=== PATIENT | male | born 1935 | race Caucasian/White ===

== ENCOUNTER 2016-08-05 12:51 | Emergency (ER) | payer MEDICARE, OTHER ==
--- NOTE | 2016-08-05 13:01 | ER Document Report ---
ED Medical Screen (RME) - General Stated Complaint: ABNORMAL LABS Notes: Patient is a 80-year-old male presents emergency department after referral from [facility] low blood pressure, abdominal pain, elevated blood glucose and low pulse ox. With concern for GI bleed. Has had abdominal pain for 6 months ago worse over the past 2 weeks. She has been able to tolerate by mouth without any difficulty. Denies emesis, diarrhea, constipation, dark tarry stools, bright red blood per rectum. Patient is hypotensive 133/67 and mildy tachycardic in the 110's in triage. Otherwise he is alert and oriented 4. Able to ambulate without any difficulty. I have greeted and performed a rapid initial assessment of this patient. A comprehensive ED assessment and evaluation of the patient, analysis of test results and completion of the medical decision making process will be conducted by additional ED providers. TRAVEL OUTSIDE OF THE [place] IN LAST 30 DAYS: No - Related Data Allergies/Adverse Reactions: Penicillins Allergy (Severe, Verified 03/06/15 20:01) rash Past Medical History - Past Medical History Cardiac Medical History: Reports: Hx Coronary Artery Disease, Hx Heart Attack - about 30 years ago Denies: Hx Hypertension Pulmonary Medical History: Reports: Hx Asthma, Hx Pneumonia Denies: Hx Bronchitis, Hx COPD, Hx Tuberculosis Neurological Medical History: Denies: Hx Cerebrovascular Accident, Hx Seizures Endocrine Medical History: Reports: Hx Diabetes Mellitus Type 2 Renal/ Medical History: Reports: Hx Benign Prostatic Hyperplasia, Hx Kidney Stones GI Medical History: Reports: Hx Hiatal Hernia Musculoskeltal Medical History: Reports Hx Arthritis Past Surgical History: Reports: Hx Abdominal Surgery - hernia repair. Denies: Hx Pacemaker - Immunizations Hx Diphtheria, Pertussis, Tetanus Vaccination: No
[2016-08-05 13:38] LABS: ABSOLUTE EOSINOPHILS # (AUTO) 0.4 10^3/uL (0.0-0.6); ABSOLUTE LYMPHOCYTES (AUTO) 1.4 10^3/uL (0.5-4.7); ABSOLUTE MONOCYTES (AUTO) 0.7 10^3/uL (0.1-1.4); ABSOLUTE NEUT (AUTO) 10.3 10^3/uL (1.7-8.2); BASOPHILS % (AUTO) 0.3 % (0-2); EOSINOPHILS % (AUTO) 2.8 % (0-6); HEMOGLOBIN 13.2 g/dL (13.5-17.0); HGB HCT DIFFERENCE -0.4; LYMPHOCYTES % (AUTO) 10.8 % (13-45); MEAN CORPUSCULAR HEMOGLOBIN 28.9 pg (27.0-33.4); MEAN CORPUSCULAR HGB CONC 32.9 g/dL (32.0-36.0); MEAN CORPUSCULAR VOLUME 88 fl (80-97); MONOCYTES % (AUTO) 5.8 % (3-13); RED BLOOD COUNT 4.55 10^6/uL (4.35-5.55); RED CELL DISTRIBUTION WIDTH 15.9 % (11.5-14.0); SEGMENTED NEUTROPHILS % (AUTO) 80.3 % (42-78); WHITE BLOOD COUNT 12.8 10^3/uL (4.0-10.5)
[2016-08-05 13:39] LABS: PROTHROMBIN TIME 12.8 SEC (11.4-15.4)
[2016-08-05 13:51] LABS: ALANINE AMINOTRANSFERASE 32 U/L (21-72); ALBUMIN 3.8 g/dL (3.5-5.0); ALKALINE PHOSPHATASE 93 U/L (38-126); ANION GAP 14 (5-19); ASPARTATE AMINO TRANSFERASE 20 U/L (17-59); BILIRUBIN,TOTAL 0.4 mg/dL (0.2-1.3); BLOOD UREA NITROGEN 20 mg/dL (7-20); CALCIUM 9.7 mg/dL (8.4-10.2); CARBON DIOXIDE 24 mmol/L (22-30); CHLORIDE 97 mmol/L (98-107); CREATININE RESULT 1.41 mg/dL (0.52-1.25); GLUCOSE 311 mg/dL (75-110); POTASSIUM 5.5 mmol/L (3.6-5.0); SODIUM 134.5 mmol/L (137-145); TOTAL PROTEIN 8.2 g/dL (6.3-8.2)
[2016-08-05 18:03] LABS: APPEARANCE,URINE CLEAR; BILIRUBIN,URINE NEGATIVE (NEGATIVE); GLUCOSE, URINE 150 mg/dL (NEGATIVE); KETONES,URINE NEGATIVE (NEGATIVE); LEUKOCYTE ESTERASE,URINE NEGATIVE (NEGATIVE); NITRITE,URINE NEGATIVE (NEGATIVE); PROTEIN,URINE NEGATIVE (NEGATIVE); URINE SPECIFIC GRAVITY 1.011; UROBILINOGEN,URINE NEGATIVE mg/dL (<2.0)
[2016-08-05] MEDS ORDERED: NORMAL SALINE 1000 ML 1,000 ML IV PRN (18:38)
[2016-08-05] MEDS ORDERED: MORPHINE SULFATE 10 MG/ML INJ IV ONE (18:38)
--- NOTE | 2016-08-05 18:40 | ER Document Report ---
ED GI/ - General Chief Complaint: Abdominal Pain Stated Complaint: ABNORMAL LABS Time seen by provider: 18:39 Mode of Arrival: Ambulatory Information source: Patient TRAVEL OUTSIDE OF THE [place] IN LAST 30 DAYS: No - HPI Patient complains to provider of: Abdominal pain Onset: Other - 1 year Timing/Duration: Persistent, Waxing and waning Quality of pain: Achy, Cramping Severity at maximum: Moderate Severity in ED: Moderate Pain Level: 3 Location: LLQ Associated symptoms: None Exacerbated by: Denies Relieved by: Denies Similar symptoms previously: Yes Recently seen / treated by doctor: Yes Notes: 08/05/16 18:39 Patient is a 80-year-old female who was sent to the emergency room by his primary care provider for evaluation of left lower quadrant abdominal pain that' s been going on for the past year, he denies any fevers, no vomiting or diarrhea , no dysuria or hematuria, states he takes medication to help him have bowel movements and has not noticed any blood in them recently, apparently while at his primary care provider's office he was noted to have a low blood pressure as low as 85/54 - Related Data Allergies/Adverse Reactions: Penicillins Allergy (Severe, Verified 03/06/15 20:01) rash Past Medical History - General Information source: Patient - Social History Smoking Status: Unknown if Ever Smoked Family History: Reviewed & Not Pertinent - Past Medical History Cardiac Medical History: Reports: Hx Coronary Artery Disease, Hx Heart Attack - about 30 years ago Denies: Hx Hypertension Pulmonary Medical History: Reports: Hx Asthma, Hx Pneumonia Denies: Hx Bronchitis, Hx COPD, Hx Tuberculosis Neurological Medical History: Denies: Hx Cerebrovascular Accident, Hx Seizures Endocrine Medical History: Reports: Hx Diabetes Mellitus Type 2 Renal/ Medical History: Reports: Hx Benign Prostatic Hyperplasia, Hx Kidney Stones GI Medical History: Reports: Hx Hiatal Hernia Musculoskeltal Medical History: Reports Hx Arthritis Past Surgical History: Reports: Hx Abdominal Surgery - hernia repair. Denies: Hx Pacemaker - Immunizations Hx Diphtheria, Pertussis, Tetanus Vaccination: No Review of Systems - Review of Systems Constitutional: No symptoms reported EENT: No symptoms reported Cardiovascular: No symptoms reported Respiratory: No symptoms reported Gastrointestinal: See HPI Genitourinary: No symptoms reported Male Genitourinary: No symptoms reported Musculoskeletal: No symptoms reported Skin: No symptoms reported Hematologic/Lymphatic: No symptoms reported Neurological/Psychological: No symptoms reported -: Yes All other systems reviewed and negative Physical Exam - Vital signs Vitals: Temp Pulse Resp BP Pulse Ox 97.8 F 120 H 15 133/67 H 95 08/05/16 12:57 08/05/16 12:57 08/05/16 12:57 08/05/16 12:57 08/05/16 12:57 Interpretation: Normal - General General appearance: Appears well, Alert - HEENT Head: Normocephalic, Atraumatic Eyes: Normal Pupils: PERRL - Respiratory Respiratory status: No respiratory distress Chest status: Nontender Breath sounds: Normal Chest palpation: Normal - Cardiovascular Rhythm: Regular Heart sounds: Normal auscultation Murmur: No - Abdominal Inspection: Normal Distension: No distension Bowel sounds: Normal Tenderness: Tender - Left lower quadrant Organomegaly: No organomegaly - Back Back: Normal, Nontender - Extremities General upper extremity: Normal inspection, Nontender, Normal color, Normal ROM , Normal temperature General lower extremity: Normal inspection, Nontender, Normal color, Normal ROM , Normal temperature, Normal weight bearing. No: Kori's sign - Neurological Neuro grossly intact: Yes Cognition: Normal Orientation: AAOx4 [place] Coma Scale Eye Opening: Spontaneous [place] Coma Scale Verbal: Oriented [place] Coma Scale Motor: Obeys Commands [place] Coma Scale Total: 15 Speech: Normal Motor strength normal: LUE, RUE, LLE, RLE Sensory: Normal - Psychological Associated symptoms: Normal affect, Normal mood - Skin Skin Temperature: Warm Skin Moisture: Dry Skin Color: Normal Course - Re-evaluation Re-evalutation: 08/05/16 22:32 Lab and imaging findings discussed with patient and spouse at bedside, which are consistent with a likely constipation, patient will be started on Maalox and Colace, provided with information for follow-up with gastroenterology and advised to return if symptoms worsen, patient acknowledges understanding and agreement with this plan - Vital Signs Vital signs: Temp Pulse Resp BP Pulse Ox 98.6 F 120 H 11 L 123/64 92 08/05/16 17:52 08/05/16 12:57 08/05/16 22:11 08/05/16 22:11 08/05/16 22:11 - Laboratory Result Diagrams: 08/05/16 13:05 08/05/16 13:05 Laboratory results interpreted by me: 02/08/05/16 08/05/16 13:05 13:05 13:10 WBC 12.8 H Hgb 13.2 L RDW 15.9 H Seg Neutrophils % 80.3 H Lymphocytes % 10.8 L Absolute Neutrophils 10.3 H Sodium 134.5 L Potassium 5.5 H Chloride 97 L Creatinine 1.41 H Est GFR ( Amer) 59 L Est GFR (Non-Af Amer) 49 L Glucose 311 H POC Glucose 283 H Urine Glucose (UA) Urine Blood 08/05/16 17:36 WBC Hgb RDW Seg Neutrophils % Lymphocytes % Absolute Neutrophils Sodium Potassium Chloride Creatinine Est GFR ( Amer) Est GFR (Non-Af Amer) Glucose POC Glucose Urine Glucose (UA) 150 H Urine Blood SMALL H - Diagnostic Test Radiology reviewed: Image reviewed, Reports reviewed - EKG Interpretation by Me EKG shows normal: Sinus rhythm Rate: Normal Rhythm: NSR Discharge - Discharge Clinical Impression: Abdominal pain Qualifiers: Abdominal location: left lower quadrant Qualified Code(s): R10.32 - Left lower quadrant pain Constipation Qualifiers: Constipation type: unspecified constipation type Qualified Code(s): K59.00 - Constipation, unspecified Condition: Stable Disposition: HOME, SELF-CARE Instructions: Abdominal Pain ([facility]), Gastroenterology Additional Instructions: Follow up with your primary care provider in one to 2 days. Return to the emergency room immediately if symptoms worsen or any additional concerns. Prescriptions: Docusate Sodium [Colace 100 mg Capsule] 100 mg PO BID #60 capsule Polyethylene Glycol 3350 [Miralax Powder 17 Gm/Packet] 17 gm PO DAILY #30 powd.pack
[2016-08-05 23:03] VITALS: BP 134/72
--- NOTE | 2016-08-06 12:37 | EKG REPORT ---
SEVERITY:- BORDERLINE ECG - SINUS RHYTHM BORDERLINE LEFT AXIS DEVIATION BORDERLINE T WAVE ABNORMALITIES : Confirmed by: Carley Infante 06-Aug-2016 12:35:56
== END 2016-08-05 23:02 | disposition home or self-care (01) ==
LOC: ER 12:51
DX: K59.00 Constipation, unspecified (principal); R10.32 Left lower quadrant pain; I25.10 Atherosclerotic heart disease of native coronary artery without angina pectoris; I25.2 Old myocardial infarction; J45.909 Unspecified asthma, uncomplicated; E11.9 Type 2 diabetes mellitus without complications; Z88.0 Allergy status to penicillin; Z79.899 Other long term (current) drug therapy
CPT/HCPCS: 93005; 99284; 96360; 36415; 82962; 83690; 85025; 85610; 80053; 81001; 74022; 74177; 93010; J7030

== ENCOUNTER 2017-02-09 12:54 | Inpatient (IN) | payer MEDICARE, OTHER ==
--- NOTE | 2017-02-09 13:10 | ER Document Report ---
ED General - General Stated Complaint: ALTERED MENTAL STATUS Time Seen by Provider: 02/09/17 13:07 Notes: Patient was reported to have had a fall this morning about 11 AM. says that he normally sleeps on that couch and got up and fell. Then he lost control of his bladder and wet his clothing and also vomited. He did not have a bowel movement. says he has fallen about 8 or 9 times over the last couple of months. He was last noted to be well about 2300 last night. EMS was called and when they arrived, they found the patient to be poorly responsive and not able to follow commands. They also found an axillary temperature of 102 . PMH: GERD, hypothyroid, depression, prostate condition, IDDM,. TRAVEL OUTSIDE OF THE [place] IN LAST 30 DAYS: No - Related Data Allergies/Adverse Reactions: Penicillins Allergy (Severe, Verified 03/06/15 20:01) rash Past Medical History - Social History Smoking Status: Unknown if Ever Smoked Family History: Reviewed & Not Pertinent - Past Medical History Cardiac Medical History: Reports: Hx Coronary Artery Disease, Hx Heart Attack - about 30 years ago, Hx Hypertension Pulmonary Medical History: Reports: Hx Asthma, Hx Pneumonia Endocrine Medical History: Reports: Hx Diabetes Mellitus Type 2, Hx Hypothyroidism Renal/ Medical History: Reports: Hx Benign Prostatic Hyperplasia, Hx Kidney Stones GI Medical History: Reports: Hx Gastroesophageal Reflux Disease, Hx Hiatal Hernia Musculoskeltal Medical History: Reports Hx Arthritis Psychiatric Medical History: Reports: Hx Depression Past Surgical History: Reports: Hx Abdominal Surgery - hernia repair - Immunizations Hx Diphtheria, Pertussis, Tetanus Vaccination: No Review of Systems - Review of Systems -: Yes ROS unobtainable due to patient's medical condition - Patient is unable to answer questions appropriately. Does not follow comma Physical Exam - Vital signs Vitals: Resp Pulse Ox 32 H 92 02/09/17 13:04 02/09/17 13:04 Interpretation: Tachycardic, Febrile - Per EMS - Notes Notes: PHYSICAL EXAMINATION: GENERAL: Well-appearing, in no acute distress. However, not properly responsive and does not answer questions and does not follow commands. HEAD: Atraumatic, normocephalic. EYES: Pupils equal round and reactive to light, extraocular movements intact. ENT: oropharynx clear without exudates. Moist mucous membranes. NECK: Normal range of motion, supple. No nuchal rigidity. LUNGS: Breath sounds equal bilaterally. Few scattered rales bilaterally in the upper half of the lungs. No wheezes heard. HEART: Regular rate and rhythm without murmurs. ABDOMEN: Soft, nontender. No guarding or rebound. BACK: No tenderness throughout entire back. EXTREMITIES: Normal range of motion without pain. NEUROLOGICAL: Unable to assess properly because of patient's lack of cooperation. He opens his eyes, but does not follow commands to move extremities or answer questions appropriately. Moves all 4 extremities. SKIN: Warm, dry, no rashes. Course - Vital Signs Vital signs: Temp Pulse Resp BP Pulse Ox 99.8 F 103 H 31 H 134/59 H 97 02/09/17 13:45 02/09/17 15:00 02/09/17 18:00 02/09/17 16:01 02/09/17 18:00 - Laboratory Result Diagrams: 02/09/17 14:39 02/09/17 14:39 Laboratory results interpreted by me: 02/09/17 02/09/17 02/09/17 13:45 14:39 14:39 WBC 22.9 H RBC 4.13 L Hgb 12.5 L Hct 36.6 L RDW 15.0 H Seg Neuts % (Manual) 92 H Band Neutrophils % 2 L Lymphocytes % (Manual) 3 L Abs Neuts (Manual) 21.5 H VBG pH Sodium 136.1 L BUN 22 H Glucose 204 H POC Glucose Lactic Acid AST 14 L Urine Protein 30 H Urine Glucose (UA) 150 H Urine Blood MODERATE H 02/09/17 02/09/17 02/09/17 14:39 15:28 17:15 WBC RBC Hgb Hct RDW Seg Neuts % (Manual) Band Neutrophils % Lymphocytes % (Manual) Abs Neuts (Manual) VBG pH 7.44 H Sodium BUN Glucose POC Glucose 201 H Lactic Acid 3.0 H AST Urine Protein Urine Glucose (UA) Urine Blood - Diagnostic Test Radiology reviewed: Image reviewed, Reports reviewed - CT of the head is normal. CT abdomen and pelvis show no acute abnormalities. Radiology results interpreted by me: 02/09/17 18:42 Chest x-ray shows patchy upper lung opacifications that could be early pneumonias. - EKG Interpretation by [place] EKG shows normal: Sinus rhythm Rate: Tachycardia Har[place]/QRS: Left axis deviation Discharge - Discharge Clinical Impression: Pneumonia, Sepsis Disposition: ADMITTED INPATIENT Admitting Provider: Hospitalist Unit Admitted: [facility]
[2017-02-09] MEDS ORDERED: ACETAMINOPHEN SOLN 325 MG/10.15 ML UDCUP PO ONE (13:12)
--- NOTE | 2017-02-09 13:54 | RADIOLOGY REPORT (SQ) ---
EXAM DESCRIPTION: CHEST SINGLE VIEW COMPLETED DATE/TIME: 02/09/2017 1:31 pm REASON FOR STUDY: bed 9 sepsis alert COMPARISON: Chest films 08/05/2016, 03/17/2016, 03/06/2015 EXAM PARAMETERS: NUMBER OF VIEWS: One view. TECHNIQUE: Single frontal radiographic view of the chest acquired. RADIATION DOSE: NA LIMITATIONS: None. FINDINGS: LUNGS AND PLEURA: Question early or developing bilateral upper lobe airspace disease marke d with [place]. No pleural effusion. No pneumothorax. Minimal left lateral costophrenic sulcus atelectasis. MEDIASTINUM AND HILAR STRUCTURES: No masses. Contour normal. HEART AND VASCULAR STRUCTURES: Heart normal in size. Normal vasculature. BONES: No acute findings. HARDWARE: None in the chest. OTHER: No other significant finding. IMPRESSION: Minimal airspace disease in the right and left upper lobe, question early or developing pneumonia. TECHNICAL DOCUMENTATION: JOB ID: [id number]
[2017-02-09 14:41] LABS: APPEARANCE,URINE CLEAR; BILIRUBIN,URINE NEGATIVE (NEGATIVE); GLUCOSE, URINE 150 mg/dL (NEGATIVE); KETONES,URINE NEGATIVE (NEGATIVE); LEUKOCYTE ESTERASE,URINE NEGATIVE (NEGATIVE); NITRITE,URINE NEGATIVE (NEGATIVE); PROTEIN,URINE 30 mg/dL (NEGATIVE); URINE SPECIFIC GRAVITY 1.015; UROBILINOGEN,URINE NEGATIVE mg/dL (<2.0)
[2017-02-09 15:03] LABS: HEMATOCRIT 36.6 % (37.9-51.0); HEMOGLOBIN 12.5 g/dL (13.5-17.0); HGB HCT DIFFERENCE 0.9; MEAN CORPUSCULAR HEMOGLOBIN 30.2 pg (27.0-33.4); MEAN CORPUSCULAR HGB CONC 34.1 g/dL (32.0-36.0); MEAN CORPUSCULAR VOLUME 89 fl (80-97); RED BLOOD COUNT 4.13 10^6/uL (4.35-5.55); WHITE BLOOD COUNT 22.9 10^3/uL (4.0-10.5)
[2017-02-09 15:11] LABS: PROTHROMBIN TIME 13.5 SEC (11.4-15.4)
[2017-02-09 15:21] LABS: ANISOCYTOSIS SLIGHT; BAND NEUTROPHILS % (MANUAL) 2 % (3-5); BASOPHILS % (MANUAL) 0 % (0-2); EOSINOPHILS % (MANUAL) 0 % (0-6); LYMPHOCYTES % (MANUAL) 3 % (13-45); PLATELET CLUMPS PRESENT; POLYCHROMASIA SLIGHT; TOTAL CELLS COUNTED 100; TOXIC GRANULATION 1+; TOXIC VACUOLATION PRESENT
[2017-02-09 15:24] LABS: ALANINE AMINOTRANSFERASE 25 U/L (21-72); ALBUMIN 3.7 g/dL (3.5-5.0); ALKALINE PHOSPHATASE 69 U/L (38-126); ANION GAP 13 (5-19); ASPARTATE AMINO TRANSFERASE 14 U/L (17-59); BILIRUBIN,DIRECT 0.4 mg/dL (0.0-0.4); BILIRUBIN,TOTAL 0.6 mg/dL (0.2-1.3); BLOOD UREA NITROGEN 22 mg/dL (7-20); CALCIUM 9.3 mg/dL (8.4-10.2); CARBON DIOXIDE 23 mmol/L (22-30); CHLORIDE 100 mmol/L (98-107); CREATININE RESULT 0.99 mg/dL (0.52-1.25); GLUCOSE 204 mg/dL (75-110); POTASSIUM 4.1 mmol/L (3.6-5.0); SODIUM 136.1 mmol/L (137-145); TOTAL PROTEIN 7.5 g/dL (6.3-8.2)
[2017-02-09] MEDS ORDERED: CEFTRIAXONE 1 GM/D5W RTU 1 GM/50 ML RTUPB IV ONE (16:17)
[2017-02-09] MEDS ORDERED: LEVOFLOXACIN 750 MG/D5W RTU 750 MG/150 ML RTUPB IV ONE (16:59)
[2017-02-09 17:23] LABS: VENOUS BLOOD BASE EXCESS 4.6 mmol/L; VENOUS BLOOD HCO3 29.5 mmol/L (20-32); VENOUS BLOOD PCO2 44.6 mmHg (35-63); VENOUS BLOOD PH 7.44 (7.30-7.42)
--- NOTE | 2017-02-09 17:27 | RADIOLOGY REPORT (SQ) ---
EXAM DESCRIPTION: CT HEAD WITHOUT COMPLETED DATE/TIME: 02/09/2017 4:59 pm REASON FOR STUDY: Multiple falling episodes COMPARISON: None. TECHNIQUE: Axial images acquired through the brain without intravenous contrast. Images reviewed wi th bone, brain and subdural windows. Images stored on PACS. All CT scanners at this facility use dose modulation, iterative reconstruction, and/or weight based d osing when appropriate to reduce radiation dose to as low as reasonably achievable (ALARA). [facility]: Dose Right [facility]: CareDose [facility]: Dose Right [facility]: Teradose 4D [facility]: [employer] RADIATION DOSE: Up-to-date CT equipment and radiation dose reduction techniques were employed. CTDIv ol: 64.6 - 67.0 mGy. DLP: 2216 mGy-cm. mGy. LIMITATIONS: Motion artifact, patient scanned twice FINDINGS: Motion artifact throughout the study. On images without motion artifact, no gross acute intracranial hemorrhage, mass effect, or midline sh ift. No gross CT evidence of large territory acute ischemic change. Paranasal sinuses clear. No skull fracture IMPRESSION: Limited negative study TECHNICAL DOCUMENTATION: JOB ID: [id number] Quality ID # [id number]: Final reports with documentation of one or more dose reduction techniques (e.g., Au tomated exposure control, adjustment of the mA and/or kV according to patient size, use of iterative reconstruction technique) 2010 [employer]- All Rights Reserved
--- NOTE | 2017-02-09 17:34 | RADIOLOGY REPORT (SQ) ---
EXAM DESCRIPTION: CT ABD/PELVIS NO ORAL OR IV COMPLETED DATE/TIME: 02/09/2017 5:04 pm REASON FOR STUDY: Fever, vomiting, abdominal pain COMPARISON: CT abdomen and pelvis 08/05/2016, 03/06/2015, 05/04/2012 TECHNIQUE: CT scan of the abdomen and pelvis performed without intravenous or oral contrast. Images reviewed with lung, soft tissue, and bone windows. Reconstructed coronal and sagittal MPR images revi ewed. All images stored on PACS. All CT scanners at this facility use dose modulation, iterative reconstruction, and/or weight based d osing when appropriate to reduce radiation dose to as low as reasonably achievable (ALARA). [facility]: Dose Right [facility]: CareDose [facility]: Dose Right [facility]: Teradose 4D [facility]: [employer] RADIATION DOSE: Up-to-date CT equipment and radiation dose reduction techniques were employed. CTDIv ol: 7.8 mGy. DLP: 455 mGy-cm.mGy. LIMITATIONS: No IV or oral contrast FINDINGS: LOWER CHEST: Patchy airspace disease at the right lung base, question early or developing pneumonia. Moderate size retrocardiac hiatal hernia. Aspiration should be considered. NON-CONTRASTED LIVER, SPLEEN, ADRENALS: Evaluation limited by lack of IV contrast. No identified sign ificant masses. PANCREAS: No masses. No peripancreatic inflammatory changes. GALLBLADDER: No identified stones by CT criteria. No inflammatory changes to suggest cholecystitis. RIGHT KIDNEY AND URETER: No suspicious masses. Assessment limited by lack of IV contrast. No signif icant calcifications. No hydronephrosis or hydroureter. LEFT KIDNEY AND URETER: No suspicious masses. Assessment limited by lack of IV contrast. No signifi cant calcifications. No hydronephrosis or hydroureter. AORTA AND RETROPERITONEUM: No aneurysm. No retroperitoneal masses or adenopathy. Heavily calcified a bdominal aorta BOWEL AND PERITONEAL CAVITY: No obvious masses or inflammatory changes. No free fluid. There is dive rticulosis of the descending and sigmoid colon without CT signs of acute diverticulitis APPENDIX: Normal. PELVIS, BLADDER, AND ABDOMINAL WALL:No abnormal masses. No free fluid. Bladder decompressed by a Fole y catheter BONES: No significant findings. OTHER: No other significant finding. IMPRESSION: Early or developing right basilar infiltrate. Aspiration pneumonia is possible. Colonic diverticuli without CT signs of acute diverticulitis TECHNICAL DOCUMENTATION: JOB ID: [id number] Quality ID # [id number]: Final reports with documentation of one or more dose reduction techniques (e.g., Au tomated exposure control, adjustment of the mA and/or kV according to patient size, use of iterative reconstruction technique) 2010 [employer]- All Rights Reserved
[2017-02-09 17:44] LABS: CREATINE KINASE MB 0.71 ng/mL (<4.55); TROPONIN I 0.024 ng/mL
[2017-02-09] MEDS ORDERED: LEVALBUTEROL HCL NEB 1.25 MG/3 ML AMPUL NEB PRN (18:06)
[2017-02-09] MEDS ORDERED: ACETAMINOPHEN 325 MG TABLET PO PRN (18:06)
[2017-02-09] MEDS ORDERED: GUAIFENESIN SYRP 200 MG/10 ML UDC PO PRN (18:06)
[2017-02-09] MEDS ORDERED: INSULIN LISPRO 100 UNIT/ML 3 ML VIAL SUBCUT PRN (18:13)
[2017-02-09] MEDS ORDERED: DEXTROSE 50%-WATER 25 GM/50 ML DISP.SYRIN IV PRN ×2 (18:13)
[2017-02-09] MEDS ORDERED: GLUCAGON,HUMAN RECOMB 1 MG INJ IM PRN (18:13)
[2017-02-09] MEDS ORDERED: DEXTROSE 40% GEL 15 GM TUBE PO PRN ×2 (18:13)
[2017-02-09] MEDS: NORMAL SALINE 1000 ML 1,000 ML IV PRN (18:48)
[2017-02-09] MEDS: IPRATROPIUM/ALBUTEROL 0.5-2.5 MG/3 ML AMPUL NEB SCH (19:40)
--- NOTE | 2017-02-09 19:57 | HISTORY AND PHYSICAL E ---
History and Physical NAME: COLE THIBODEAUX : 1935 AGE: 81Y ADMITTED: 02/09/2017 ROOM: ED09 LOCAL DOCTOR: EDY SMITH M.D. CHIEF COMPLAINT: Altered mental status. HISTORY OF PRESENT ILLNESS: The history is primarily obtained from his who is at bedside, as patient is obtunded and difficult to arouse. The patient has apparently been complaining of indigestion and normally sits on the couch. She reports that this morning he was breathing hard and laying on his side when she went to get him up, she was unable to arouse him this morning. When she came back in the room, he was lying on the ground and he had vomited and lost control of his bladder at that time. He had been complaining previously of some shortness of breath without chest pain and felt like he had pneumonia according to her. He was taking his PPI and she had bought him a bottle of Mylanta as well. The patient does remain chronically constipated and has a history of diabetic gastroparesis. In the emergency department, the patient was found to have a white count of 22,000, to be hypoxic and have a lactate of 3. The patient was found to be overtly septic with multifocal pneumonia. He was referred to the hospitalist service for admission. PAST MEDICAL HISTORY: 1. Diabetes mellitus. 2. Osteoarthritis. 3. BPH. 4. Hypertension. 5. Hyperlipidemia. 6. Chronic opiate dependency. 7. Hypothyroidism. 8. GERD. PAST SURGICAL HISTORY: Rona fundoplication. HOME MEDICATIONS: 1. Avodart. 2. Glimepiride. 3. Gabapentin. 4. Metformin. 5. Cymbalta. 6. Synthroid. 7. Prilosec. 8. Flomax. 9. Opana. 10. Oxycodone. ALLERGIES: PENICILLIN WITH AN UNCLEAR RESPONSE. SOCIAL HISTORY: He is . He does not drink alcohol. He does not smoke but he does chew tobacco and he does not use illicit drugs. CODE STATUS: DNR. His , Faith, is his surrogate decision maker. FAMILY HISTORY: He has 3 sisters with cancer and 1 brother with a myocardial infarction. REVIEW OF SYSTEMS: Unobtainable secondary to patient mentation. PHYSICAL EXAMINATION: VITAL SIGNS: Temperature is 99.8. Pulse of 109. Blood pressure of 115/65. Respiratory rate of 21. Saturation of 96% on 3 L nasal cannula. GENERAL: The patient is obtunded and disheveled. He is acutely ill-appearing. HEENT: He is atraumatic, normocephalic. Pupils are small. Patient is obtunded but does respond to stimuli. He has no icterus. His extraocular eye movements are unable to be assessed due to his cooperation. His pupils are minimally reactive and approximately 2 mm. His mucous membranes are dry. He has dried tobacco secretions around his mouth. NECK: His trachea is midline. There is no thyromegaly. RESPIRATORY: Reveals some rhonchi bilaterally but no overt wheezing. CARDIOVASCULAR: Regular rate and rhythm. He is tachycardic. Normal S1,S2 without appreciable rub or gallop. ABDOMEN: Protuberant but soft, nondistended. Tender to palpation in the right lower quadrant and left lower quadrant bilaterally without rebound, rigidity or guarding. He has very hypoactive to minimal bowel sounds and negative Saavedra sign. RECTAL: Deferred. GENITOURINARY: Scott catheter is in place draining clear yellow urine. EXTREMITIES: Reveal no cyanosis, clubbing or edema. MUSCULOSKELETAL: Reveals no joint swelling or deformity. VASCULATURE: Reveals normal peripheral pulses. NEUROLOGIC: Unable to be assessed due to obtundation. SKIN: Reveals no rashes, wounds or worrisome skin lesions. PSYCHIATRIC: Unable to assess his psychiatric condition due to his current mentation. LABORATORY VALUES: White count of 22.9, hemoglobin 12.5, hematocrit 36.6 and platelets of 321. Sodium 136, potassium 4.1, chloride 100, CO2 of 23, BUN of 22, creatinine 0.99, glucose of 204, lactate of 3, calcium 9.3, total bilirubin 0.6, direct 0.4, AST 14, ALT 25, alkaline phosphatase 69, total protein 7.5, albumin 3.7. His troponin is 0.024. Head CT: The patient had a CT of the head which revealed motion artifact although there was no gross acute intracranial hemorrhage, mass effect or midline shift, clear sinuses, no skull fracture--very limited study. CT of the abdomen and pelvis reveals patchy airspace disease in the right lung, questionable early developing pneumonia and a moderate-sized *------* hiatal hernia with concern for aspiration. The patient has diverticulosis without diverticulitis. IMPRESSION: This is a 81-year-old male with: 1. Sepsis secondary to aspiration pneumonia. 2. Multifocal pneumonia, likely bacterial, likely gram-negative. 3. Diabetes mellitus. 4. Diabetic gastroparesis. 5. BPH. 6. Chronic pain syndrome. 7. Chronic opiate dependency. 8. Dyslipidemia. 9. Tobacco abuse. 10. Chronic constipation. 11. Acute encephalopathy secondary to sepsis. 12. Hypothyroidism. PLAN: 1. For patient's sepsis, we will place the patient on Rocephin and Levaquin, oxygen and IV fluids, maintain a MAP greater than 65, and patient will be admitted to [facility] for monitoring. We will obtain a sputum culture once one is available to us. We will continue scheduled nebulized treatments. 2. For patient's diabetes mellitus, will place patient on q.6 h. Accu-Chek and sliding scale insulin and we will hold his oral medications at this time due to obtundation. 3. For his altered mental status, this is likely secondary to the use of narcotics in addition to his poor mental status. We will obtain an ABG and use BiPAP if indicated. 4. For his chronic opiate dependency, at this time we will hold all opiates and we will add these as patient's mental status improves. I did discuss this with his . 5. For patient's GERD/hiatal hernia, we will continue a PPI and discuss this with patient when he is more aroused. 6. For patient's DVT prophylaxis, he will be on Lovenox. 7. For his code status, he is a DNR and his is his surrogate decision-maker. Total time spent with the patient including physical examination, coordination of care and discussion with patient and family and ER physician was 55 minutes of time. DICTATING PHYSICIAN: SIXTO REDDY M.D. [id number] PHY#: [id number] ID: [id number] JOB#: [id number] ACCT: [id number] cc:SIXTO REDDY M.D. >
--- NOTE | 2017-02-09 21:46 | EKG REPORT ---
SEVERITY:- OTHERWISE NORMAL ECG - SINUS TACHYCARDIA LEFT AXIS DEVIATION : Confirmed by: Carley Infante 09-Feb-2017 21:46:25
[2017-02-09] MEDS: GUAIFENESIN 600 MG TABLET.SA PO SCH (23:58)
[2017-02-09] MEDS: HEPARIN SOD (PORCINE) 5,000 UNIT/ML 1 ML SYRINGE SUBCUT SCH (23:58)
[2017-02-10] MEDS: NORMAL SALINE 1000 ML 1,000 ML IV PRN ×2 (00:01→12:31)
[2017-02-10 04:50] LABS: HEMATOCRIT 36.8 % (37.9-51.0); HEMOGLOBIN 12.4 g/dL (13.5-17.0); HGB HCT DIFFERENCE 0.4; MEAN CORPUSCULAR HEMOGLOBIN 30.4 pg (27.0-33.4); MEAN CORPUSCULAR HGB CONC 33.8 g/dL (32.0-36.0); MEAN CORPUSCULAR VOLUME 90 fl (80-97); RED BLOOD COUNT 4.09 10^6/uL (4.35-5.55); RED CELL DISTRIBUTION WIDTH 14.8 % (11.5-14.0); WHITE BLOOD COUNT 20.7 10^3/uL (4.0-10.5)
[2017-02-10 04:55] LABS: ANION GAP 8 (5-19); BLOOD UREA NITROGEN 19 mg/dL (7-20); CALCIUM 8.8 mg/dL (8.4-10.2); CARBON DIOXIDE 26 mmol/L (22-30); CHLORIDE 103 mmol/L (98-107); CREATININE RESULT 0.86 mg/dL (0.52-1.25); GLUCOSE 205 mg/dL (75-110); POTASSIUM 3.9 mmol/L (3.6-5.0); SODIUM 137.3 mmol/L (137-145)
[2017-02-10 05:10] LABS: BASOPHILS % (MANUAL) 0 % (0-2); EOSINOPHILS % (MANUAL) 0 % (0-6); LYMPHOCYTES % (MANUAL) 7 % (13-45); TOTAL CELLS COUNTED 100
[2017-02-10 05:11] LABS: ANISOCYTOSIS SLIGHT; TOXIC GRANULATION SLIGHT; TOXIC VACUOLATION PRESENT
[2017-02-10] MEDS: LANSOPRAZOLE 30 MG TAB.RAP.DR PO SCH (05:28)
[2017-02-10] MEDS: HEPARIN SOD (PORCINE) 5,000 UNIT/ML 1 ML SYRINGE SUBCUT SCH ×3 (05:29→23:13)
[2017-02-10] MEDS: IPRATROPIUM/ALBUTEROL 0.5-2.5 MG/3 ML AMPUL NEB SCH ×4 (08:12→20:10)
[2017-02-10] MEDS: GUAIFENESIN 600 MG TABLET.SA PO SCH ×2 (09:08→23:11)
[2017-02-10] MEDS ORDERED: ALBUTEROL SULFATE HFA (90 MCG/PUFF) 200 PUFF/8.5 GM MDI IH PRN (11:00)
[2017-02-10] MEDS ORDERED: SENNOSIDES/DOCUSATE 8.6-50 MG 1 EACH TABLET PO ONE (11:15)
[2017-02-10] MEDS: INSULIN LISPRO 100 UNIT/ML 3 ML VIAL SUBCUT SCH ×3 (12:22→23:28)
[2017-02-10] MEDS ORDERED: OPANA PO ONE (15:00)
[2017-02-10] MEDS ORDERED: CEFTRIAXONE 1 GM/D5W RTU 1 GM/50 ML RTUPB IV SCH (16:00)
[2017-02-10] MEDS ORDERED: (PENDING PHARMACY ID) (Metformin Hcl [Metformin Hcl Er] 500 MG) PO SCH (17:00)
[2017-02-10] MEDS ORDERED: OXYCODONE HCL IR 5 MG TABLET PO PRN (17:37)
[2017-02-10] MEDS: GLIMEPIRIDE 4 MG TABLET PO SCH (17:43)
[2017-02-10] MEDS: METFORMIN HCL 500 MG TABLET PO SCH (17:43)
[2017-02-10] MEDS: DOCUSATE SODIUM 100 MG CAPSULE PO SCH (17:43)
[2017-02-10] MEDS: LACTOBACILLUS ACIDOPHILUS 250 MG TAB PO SCH (17:44)
--- NOTE | 2017-02-10 17:49 | PDOC PROGRESS REPORT ---
Subjective Progress Note for:: 02/10/17 Subjective:: Patient is more awake today. He is complaining of his chronic pain. He reports he is feeling somewhat better. Patient is far from baseline. He often drifts off when we are talking. Patient admits to shortness of breath, abdominal pain, nausea, and constipation. Patient denies chest pain, vomiting, fevers, chills, diarrhea, headache, new onset weakness. Physical Exam Vital Signs: Temp Pulse Resp BP Pulse Ox 98.3 F 79 20 163/63 H 98 02/10/17 15:10 02/10/17 16:09 02/10/17 16:09 02/10/17 15:10 02/10/17 16:09 Pulse Oximeter Continuous Start: 02/09/17 18: 07 Freq: RTQ4 Status: Active Document 02/10/17 16:09 [facility] (Rec: 02/10/17 16:49 [facility] [email or web address]) Pulse Oximetry Assessment Oxygen Saturation (92-100) 98 Oxygen Delivery Method Room Air Fraction of Inspired Oxygen (FIO2) 21 Equipment Usage Equipment in Use Continuous SpO2 Machine # [id number] Intake & Output 02/09/17 02/10/17 02/11/17 06:59 06:59 06:59 Intake Total 946 0 Output Total 950 400 Balance -4 -400 Weight 78.1 kg Exam: General: Sleeping but easily arousable, mild respiratory distress HEENT: AT/NC, PERRL, EOMI, oropharynx is moist, pink, no scleral icterus, no conjunctival injection Neck: No JVD, trachea midline Chest: Bilateral scattered rhonchi right worse than left CV: Regular rate and rhythm, normal S1 and S2, no rub or gallop; +3/6 sm apex Abdomen: Soft, mildly tender to palpation, nondistended, hypoactive bowel sounds ; no rebound, rigidity, or guarding Extremities: No cyanosis, clubbing or edema Neuro: Cranial nerves II through XII are grossly intact without focal deficits Psych: Normal mood and affect, rhythmic mouth chewing movements Results Laboratory Results: 02/10/17 04:27 02/10/17 04:27 02/09/17 02/09/17 02/10/17 21:05 21:05 04:27 WBC 20.7 H RBC 4.09 L Hgb 12.4 L Hct 36.8 L MCV 90 MCH 30.4 MCHC 33.8 RDW 14.8 H Plt Count 259 Seg Neutrophils % Not Reportable Lymphocytes % Not Reportable Monocytes % Not Reportable Eosinophils % Not Reportable Basophils % Not Reportable Absolute Neutrophils Not Reportable Absolute Lymphocytes Not Reportable Absolute Monocytes Not Reportable Absolute Eosinophils Not Reportable Absolute Basophils Not Reportable Sodium Potassium Chloride Carbon Dioxide Anion Gap BUN Creatinine Est GFR ( Amer) Est GFR (Non-Af Amer) Glucose Lactic Acid 2.6 H Calcium TSH 1.32 02/10/17 04:27 WBC RBC Hgb Hct MCV MCH MCHC RDW Plt Count Seg Neutrophils % Lymphocytes % Monocytes % Eosinophils % Basophils % Absolute Neutrophils Absolute Lymphocytes Absolute Monocytes Absolute Eosinophils Absolute Basophils Sodium 137.3 Potassium 3.9 Chloride 103 Carbon Dioxide 26 Anion Gap 8 BUN 19 Creatinine 0.86 Est GFR ( Amer) > 60 Est GFR (Non-Af Amer) > 60 Glucose 205 H Lactic Acid Calcium 8.8 TSH Impressions: Chest X-Ray 02/09/17 12:59 IMPRESSION: Minimal airspace disease in the right and left upper lobe, question early or developing pneumonia. Abdomen/Pelvis CT 02/09/17 16:45 IMPRESSION: Early or developing right basilar infiltrate. Aspiration pneumonia is possible. Colonic diverticuli without CT signs of acute diverticulitis Head CT 02/09/17 16:46 IMPRESSION: Limited negative study Assessment & Plan - Diagnosis (1) Sepsis Qualifiers: Sepsis type: sepsis due to unspecified organism Qualified Code(s): A41.9 - Sepsis, unspecified organism Is this a current diagnosis for this admission?: Yes Plan: Concern for gram-negative sepsis in light of the fact that this appears to be aspiration pneumonia. 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 He was found minimally responsive by his . (2) Tardive dyskinesia Is this a current diagnosis for this admission?: Yes Plan: Consider initiation of trihexyphenidyl. Concern for worsening anticholinergic side effects though including constipation. (3) Constipation due to opioid therapy Is this a current diagnosis for this admission?: Yes Plan: Senna, Colace, MiraLAX. If this is unsuccessful use Dulcolax. reports use of chronic Dulcolax at home. (4) Pneumonia Qualifiers: Pneumonia type: aspiration pneumonia Aspiration pneumonia type: due to vomit Laterality: right Lung location: unspecified part of lung Qualified Code(s): J69.0 - Pneumonitis due to inhalation of food and vomit Is this a current diagnosis for this admission?: Yes Plan: Patient has a multilobar pneumonia consistent with aspiration pneumonia. Patient currently on Levaquin and Rocephin pending culture. Continue scheduled nebulized treatments. Aggressive pulmonary toileting (5) Chronic pain Qualifiers: Chronic pain type: chronic pain syndrome Qualified Code(s): G89.4 - Chronic pain syndrome Is this a current diagnosis for this admission?: Yes Plan: Continue patient's home Opana and restart a small amount of oxycodone. (6) Gastroparesis Is this a current diagnosis for this admission?: Yes Plan: Consider reinitation of reglan despite tardive dykinesia - Time Time Spent with patient: 25-34 minutes Medications reviewed and adjusted accordingly: Yes - Inpatient Certification Based on my medical assessment, after consideration of the patient's comorbidities, presenting symptoms, or acuity I expect that the services needed warrant INPATIENT care.: Yes I certify that my determination is in accordance with my understanding of Medicare's requirements for reasonable and necessary INPATIENT services [42 CFR 412.3e].: Yes Medical Necessity: Need for Nebulizer Therapy and Monitoring of Response, Need for IV Antibiotics Post Hospital Care: D/C Pattern Technician Documentation
[2017-02-10] MEDS ORDERED: LEVOFLOXACIN 750 MG/D5W RTU 750 MG/150 ML RTUPB IV SCH (18:00)
--- NOTE | 2017-02-10 19:30 | XCELERA REPORT ---
[address] [address] Transthoracic Echocardiogram Report Name: COLE THIBODEAUX Age: 81 yrs Gender: Male : 1935 Patient Status: Inpatient Patient Location: [address] [place] [address] Study Date: 02/10/2017 01:14 PM Height: 68 in Weight: 172 lb BSA: 1.9 m2 Procedure: A complete two-dimensional transthoracic echocardiogram was performed (2D, M-mode, spectral and color flow Doppler). The study was technically difficult with many images being suboptimal in quality. Reason For Study: new apical murmur Ordering Physician: SIXTO REDDY Performed By: Aureliano Mahmood Interpretation Summary The study was technically difficult with many images being suboptimal in quality. The left ventricular ejection fraction is preserved. There is mild concentric left ventricular hypertrophy. The left ventricle is grossly normal size. Doppler measurements suggest pseudonormalized left ventricular relaxation, which is associated with grade II/IV or mild to moderate diastolic dysfunction Regional wall motion abnormalities cannot be excluded due to limited visualization. Not all wall segments were well visualized. The right ventricle is mildly dilated. The right ventricular systolic function is normal. The right atrium is mildly dilated. The left atrium is mildly dilated. There is a mild amount of mitral regurgitation There is no mitral valve stenosis. There is a trace to mild amount of aortic regurgitation There is no aortic valve stenosis There is a mild amount of tricuspid regurgitation There is mild to moderate pulmonary hypertension by echo Right ventricular systolic pressure is estimated to be elevated at 40- 50mmHg. The aortic root is not well visualized but is probably normal size. The inferior vena cava was not well visualized There is no pericardial effusion. MMode/2D Measurements & Calculations RVDd: 3.9 cm LVIDd: 4.5 cm FS: 33.7 % Ao root diam: 2.8 cm IVSd: 1.3 cm LVIDs: 3.0 cm EDV(Teich): 90.1 ml LVPWd: 1.3 cm ESV(Teich): 33.6 ml Ao root area: 6.3 cm2 EF(Teich): 62.7 % LA dimension: 4.3 cm Doppler Measurements & Calculations MV E max eduardo: MV P1/2t max eduardo: Ao V2 max: LV V1 max P.1 cm/sec 81.7 cm/sec 190.0 cm/sec 4.8 mmHg MV A max eduardo: MV P1/2t: 62.7 msec Ao max PG: LV V1 max: 102.0 cm/sec 14.4 mmHg 109.2 cm/sec MV E/A: 0.78 MVA(P1/2t): 3.5 cm2 MV dec slope: 381.6 cm/sec2 PA V2 max: PI end-d eduardo: TR max eduardo: RAP systole: 108.0 cm/sec 123.5 cm/sec 282.7 cm/sec 10.0 mmHg PA max PG: TR max P.7 mmHg 32.1 mmHg RVSP(TR): 42.1 mmHg Left Ventricle The left ventricle is grossly normal size. There is mild concentric left ventricular hypertrophy. The left ventricular ejection fraction is preserved. Doppler measurements suggest pseudonormalized left ventricular relaxation, which is associated with grade II/IV or mild to moderate diastolic dysfunction. Regional wall motion abnormalities cannot be excluded due to limited visualization. Not all wall segments were well visualized. Right Ventricle The right ventricle is mildly dilated. The right ventricular systolic function is normal. Atria The right atrium is mildly dilated. The left atrium is mildly dilated. Interarterial septum not well visualized and not well dopplered. Cannot comment on ASD/PFO presence. Mitral Valve The mitral valve is grossly normal. There is no mitral valve stenosis. There is a mild amount of mitral regurgitation. Aortic Valve The aortic valve is mildly calcified. There is no aortic valve stenosis. There is a trace to mild amount of aortic regurgitation. Tricuspid Valve The tricuspid valve is not well visualized secondary to technical limitations. There is no tricuspid stenosis. There is a mild amount of tricuspid regurgitation. There is mild to moderate pulmonary hypertension by echo. Right ventricular systolic pressure is estimated to be elevated at 40-50mmHg. Pulmonic Valve The pulmonic valve is not well visualized. Great Vessels The aortic root is not well visualized but is probably normal size. The inferior vena cava was not well visualized. Effusions There is no pericardial effusion. : SIXTO REDDY > Carley Infante
[2017-02-10] MEDS ORDERED: TAMSULOSIN HCL 0.4 MG CAP.SR.24H PO SCH (22:00)
[2017-02-10] MEDS ORDERED: INSULIN GLARGINE,HUM.REC.ANLOG 300 UNIT/3 ML INSULN.PEN SUBCUT SCH (22:00)
[2017-02-10] MEDS ORDERED: SENNOSIDES/DOCUSATE 8.6-50 MG 1 EACH TABLET PO SCH (22:00)
[2017-02-10] MEDS: [UNRECOGNIZED DRUG - OTHER] PO SCH (23:26)
[2017-02-11] MEDS ORDERED: LEVOTHYROXINE SODIUM 0.075 MG TABLET PO SCH (06:00)
[2017-02-11] MEDS: NORMAL SALINE 1000 ML 1,000 ML IV PRN (06:25)
[2017-02-11] MEDS: HEPARIN SOD (PORCINE) 5,000 UNIT/ML 1 ML SYRINGE SUBCUT SCH (06:25)
[2017-02-11] MEDS: LANSOPRAZOLE 30 MG TAB.RAP.DR PO SCH (06:26)
[2017-02-11 06:58] LABS: ABSOLUTE LYMPHOCYTES (AUTO) 1.2 10^3/uL (0.5-4.7); ABSOLUTE MONOCYTES (AUTO) 0.7 10^3/uL (0.1-1.4); ABSOLUTE NEUT (AUTO) 11.7 10^3/uL (1.7-8.2); BASOPHILS % (AUTO) 0.3 % (0-2); EOSINOPHILS % (AUTO) 0.3 % (0-6); HEMATOCRIT 33.5 % (37.9-51.0); HEMOGLOBIN 11.5 g/dL (13.5-17.0); LYMPHOCYTES % (AUTO) 8.9 % (13-45); MEAN CORPUSCULAR HEMOGLOBIN 30.5 pg (27.0-33.4); MEAN CORPUSCULAR HGB CONC 34.4 g/dL (32.0-36.0); MEAN CORPUSCULAR VOLUME 89 fl (80-97); MONOCYTES % (AUTO) 4.8 % (3-13); RED BLOOD COUNT 3.77 10^6/uL (4.35-5.55); RED CELL DISTRIBUTION WIDTH 15.3 % (11.5-14.0); SEGMENTED NEUTROPHILS % (AUTO) 85.7 % (42-78); WHITE BLOOD COUNT 13.7 10^3/uL (4.0-10.5)
[2017-02-11 07:10] LABS: ANION GAP 8 (5-19); BLOOD UREA NITROGEN 15 mg/dL (7-20); CALCIUM 8.9 mg/dL (8.4-10.2); CARBON DIOXIDE 27 mmol/L (22-30); CHLORIDE 105 mmol/L (98-107); CREATININE RESULT 0.88 mg/dL (0.52-1.25); GLUCOSE 45 mg/dL (75-110); POTASSIUM 3.6 mmol/L (3.6-5.0); SODIUM 139.5 mmol/L (137-145)
[2017-02-11] MEDS ORDERED: POTASSIUM CHLORIDE 10 MEQ TABLET.SA PO ONE (07:34)
[2017-02-11] MEDS: IPRATROPIUM/ALBUTEROL 0.5-2.5 MG/3 ML AMPUL NEB SCH (07:46)
[2017-02-11] MEDS: GLIMEPIRIDE 4 MG TABLET PO SCH (08:57)
[2017-02-11] MEDS: METFORMIN HCL 500 MG TABLET PO SCH (08:57)
[2017-02-11] MEDS: [UNRECOGNIZED DRUG - OTHER] PO SCH (09:10)
[2017-02-11] MEDS: GUAIFENESIN 600 MG TABLET.SA PO SCH (09:11)
[2017-02-11] MEDS: DOCUSATE SODIUM 100 MG CAPSULE PO SCH (09:11)
[2017-02-11] MEDS: LACTOBACILLUS ACIDOPHILUS 250 MG TAB PO SCH (09:19)
[2017-02-11] MEDS: INSULIN LISPRO 100 UNIT/ML 3 ML VIAL SUBCUT SCH (09:21)
[2017-02-11] MEDS ORDERED: DUTASTERIDE 0.5 MG CAPSULE PO SCH (10:00)
[2017-02-11] MEDS ORDERED: POLYETHYLENE GLYCOL 3350 POWDER 17 GM/1 PACKET PO SCH (10:00)
[2017-02-11 11:50] VITALS: BP 159/67
--- NOTE | 2017-02-11 17:47 | PDOC DISCHARGE SUMMARY ---
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, managed as type 1 Is this a current diagnosis for this admission?: Yes (8) HTN (hypertension) Is this a current diagnosis for this admission?: Yes - Additional Information Resuscitation Status: Do Not Resuscitate Discharge Diet: Cardiac, Diabetic Discharge Activity: Activity As Tolerated, Slowly Increase Activity Home Medications: Albuterol Sulfate [Ventolin Hfa] 2 puff IH Q4HP PRN 02/09/17 Dutasteride [Avodart] 0.5 mg PO DAILY 02/09/17 Insulin Glargine,Hum.rec.anlog [Lantus Insulin 100 Unit/mL] 50 unit SUBCUT QHS 02/09/17 Levothyroxine Sodium [Synthroid] 75 mcg PO DAILY 02/09/17 Metformin HCl [Metformin HCl ER] 500 mg PO BIDBS 02/09/17 Omeprazole 40 mg PO DAILY 02/09/17 Oxycodone HCl 15 mg PO Q4HP PRN 02/09/17 Oxymorphone HCl [Oxymorphone HCl ER] 40 mg PO Q12 02/09/17 Tamsulosin HCl [Flomax 0.4 mg Cap.sr] 0.4 mg PO QHS 02/09/17 Docusate Sodium [Colace 100 mg Capsule] 100 mg PO BID #60 capsule 02/11/17 Glimepiride [Amaryl 4 mg Tablet] 4 mg PO BIDACBS tablet 02/11/17 Guaifenesin [Mucinex Sr 600 mg Tablet.sa] 600 mg PO Q12 #20 tablet.sa 02/11/17 Levofloxacin [Levaquin 750 mg Tablet] 750 mg PO DAILY #10 tab 02/11/17 Sennosides/Docusate 8.6-50 mg [Senna Plus Tablet] 2 each PO QHS #60 tablet 02/11 History of Present Illness History of Present Illness: Please see H&P for full HPI Hospital Course Hospital Course: Patient was admitted and started on Levaquin and Rocephin. He greatly improved over the next 48 hours. Patient's mental status was improved by the following day. His narcotics were slowly re-added. He had several bowel movements. When patient's insulin was added, he did have an episode of hypoglycemia in the morning which is likely due to his insulin being adjusted for his normal home eating habits. We did discuss the need for him to comply with his home medical and dietary therapy. Patient was also advised to stop chewing tobacco. He was advised to follow-up with his primary care physician regarding treatment for his tardive dyskinesia. The remainder of his course was unremarkable and he was discharged in stable condition. Physical Exam Vital Signs: Temp Pulse Resp BP Pulse Ox 98.7 F 80 20 159/67 H 92 02/11/17 11:00 02/11/17 11:00 02/11/17 11:00 02/11/17 11:00 02/11/17 11:00 Pulse Oximeter Continuous Start: 02/09/17 18: 07 Freq: RTQ4 Status: Discharge Document 02/11/17 07:46 LDA (Rec: 02/11/17 09:11 LDA [email or web address]) Pulse Oximetry Assessment Oxygen Saturation (92-100) 94 Oxygen Delivery Method Room Air Fraction of Inspired Oxygen (FIO2) 21 Equipment Usage Equipment in Use Continuous SpO2 Machine # 14 Intake & Output 02/10/17 02/11/17 02/12/17 06:59 06:59 06:59 Intake Total 946 2152 Output Total 950 640 Balance -4 1512 Weight 78.1 kg 80.6 kg Exam: General: A+x3, NAD HEENT: AT/NC, PERRL, EOMI, oropharynx is moist, pink, no scleral icterus, no conjunctival injection Neck: No JVD, trachea midline Chest: CTAB CV: Regular rate and rhythm, normal S1 and S2, no rub or gallop; +3/6 sm apex Abdomen: Soft, NTTP, nondistended, active bowel sounds; no rebound, rigidity, or guarding Extremities: No cyanosis, clubbing or edema Neuro: Cranial nerves II through XII are grossly intact without focal deficits Psych: Normal mood and affect, rhythmic mouth chewing movements Results Laboratory Results: 02/11/17 06:00 02/11/17 06:00 02/11/17 02/11/17 06:00 06:00 WBC 13.7 H RBC 3.77 L Hgb 11.5 L Hct 33.5 L MCV 89 MCH 30.5 MCHC 34.4 RDW 15.3 H Plt Count 291 Seg Neutrophils % 85.7 H Lymphocytes % 8.9 L Monocytes % 4.8 Eosinophils % 0.3 Basophils % 0.3 Absolute Neutrophils 11.7 H Absolute Lymphocytes 1.2 Absolute Monocytes 0.7 Absolute Eosinophils 0.0 Absolute Basophils 0.0 Sodium 139.5 Potassium 3.6 Chloride 105 Carbon Dioxide 27 Anion Gap 8 BUN 15 Creatinine 0.88 Est GFR ( Amer) > 60 Est GFR (Non-Af Amer) > 60 Glucose 45 L Calcium 8.9 Impressions: Chest X-Ray 02/09/17 12:59 IMPRESSION: Minimal airspace disease in the right and left upper lobe, question early or developing pneumonia. Abdomen/Pelvis CT 02/09/17 16:45 IMPRESSION: Early or developing right basilar infiltrate. Aspiration pneumonia is possible. Colonic diverticuli without CT signs of acute diverticulitis Head CT 02/09/17 16:46 IMPRESSION: Limited negative study Qualifiers PATEINT BEING DISCHARGED WITH ANY OF THE FOLLOWING DIAGNOSIS?: No Plan Time Spent: Less than 30 Minutes
[2017-02-11] MEDS ORDERED: INSULIN GLARGINE,HUM.REC.ANLOG 300 UNIT/3 ML INSULN.PEN SUBCUT SCH (22:00)
== END 2017-02-11 12:15 | disposition home or self-care (01) | DRG 871 ==
LOC: ER 12:54 → EH 18:06 → UNDOADMIN 18:32 → EH 18:32 → 3W 22:02
PROVIDERS: ADMIT Family Medicine; ATTEND Family Medicine
DX: A41.9 Sepsis, unspecified organism (principal); J69.0 Pneumonitis due to inhalation of food and vomit; G93.49 Other encephalopathy; F11.20 Opioid dependence, uncomplicated; R41.82 Altered mental status, unspecified; K21.9 Gastro-esophageal reflux disease without esophagitis; E03.9 Hypothyroidism, unspecified; F32.9 Major depressive disorder, single episode, unspecified; N40.0 Benign prostatic hyperplasia without lower urinary tract symptoms; E11.43 Type 2 diabetes mellitus with diabetic autonomic (poly)neuropathy; K31.84 Gastroparesis; K44.9 Diaphragmatic hernia without obstruction or gangrene; G24.01 Drug induced subacute dyskinesia; K59.03 Drug induced constipation; Z79.84 Long term (current) use of oral hypoglycemic drugs; Z88.0 Allergy status to penicillin; Z79.4 Long term (current) use of insulin; Z79.51 Long term (current) use of inhaled steroids; Z79.899 Other long term (current) drug therapy
CPT/HCPCS: 36415; 51702; 70450; 71010; 74176; 80048; 80053; 81001; 82553; 82803; 82962; 83605; 84443; 84484; 85025; 85610; 87040; 87086; 93005; 93010; 93306; 94640; 94667; 94762; 94799; 96365; 99285; J0696; J1644; J1815; J1956; J3490; J7030; J7620

== ENCOUNTER → 2017-03-10 | Outpatient (CLI) | payer MEDICARE, OTHER ==
[2017-03-10 13:19] LABS: HEMATOCRIT 39.4 % (37.9-51.0); HEMOGLOBIN 13.3 g/dL (13.5-17.0); HGB HCT DIFFERENCE 0.5; MEAN CORPUSCULAR HGB CONC 33.7 g/dL (32.0-36.0); MEAN CORPUSCULAR VOLUME 89 fl (80-97); RED BLOOD COUNT 4.43 10^6/uL (4.35-5.55); RED CELL DISTRIBUTION WIDTH 14.9 % (11.5-14.0); WHITE BLOOD COUNT 11.2 10^3/uL (4.0-10.5)
[2017-03-10 13:39] LABS: ALANINE AMINOTRANSFERASE 19 U/L (21-72); ALBUMIN 3.9 g/dL (3.5-5.0); ALKALINE PHOSPHATASE 79 U/L (38-126); ANION GAP 14 (5-19); ASPARTATE AMINO TRANSFERASE 16 U/L (17-59); BILIRUBIN,DIRECT 0.4 mg/dL (0.0-0.4); BILIRUBIN,TOTAL 0.6 mg/dL (0.2-1.3); BLOOD UREA NITROGEN 13 mg/dL (7-20); CALCIUM 9.7 mg/dL (8.4-10.2); CARBON DIOXIDE 24 mmol/L (22-30); CHLORIDE 100 mmol/L (98-107); CREATININE RESULT 1.13 mg/dL (0.52-1.25); GLUCOSE 226 mg/dL (75-110); POTASSIUM 4.7 mmol/L (3.6-5.0); SODIUM 138.3 mmol/L (137-145); TOTAL PROTEIN 7.8 g/dL (6.3-8.2)
== END ==
LOC: LAB 12:54
PROVIDERS: ATTEND Physician Assistant
DX: J18.9 Pneumonia, unspecified organism (principal); E11.9 Type 2 diabetes mellitus without complications
CPT/HCPCS: 36415; 80053; 85027

== ENCOUNTER 2017-03-17 11:19 | Emergency (ER) | payer MEDICARE, OTHER ==
--- NOTE | 2017-03-17 11:45 | ER Document Report ---
ED Medical Screen (RME) - General Chief Complaint: Fall Stated Complaint: WRIST PAIN Time Seen by Provider: 03/17/17 11:42 Notes: Patient presents stating that he fell against his fridge yesterday and hurt his left wrist. He states that the left wrist is the worst area of pain. It was also noticed at triage the patient is significantly tachycardic. Patient states he does not recall being told that his heart rate is high in the past. He states he is not sure why he gets dizzy and falls but he has been seen multiple times to be evaluated for this. TRAVEL OUTSIDE OF THE [place] IN LAST 30 DAYS: No - Related Data Allergies/Adverse Reactions: Penicillins Allergy (Severe, Verified 03/17/17 11:23) rash Past Medical History - Social History Chew tobacco use (# tins/day): No Frequency of alcohol use: None Drug Abuse: None - Past Medical History Cardiac Medical History: Reports: Hx Coronary Artery Disease, Hx Heart Attack - about 30 years ago, Hx Hypertension Pulmonary Medical History: Reports: Hx Asthma, Hx Pneumonia Denies: Hx Bronchitis, Hx COPD, Hx Tuberculosis Neurological Medical History: Denies: Hx Cerebrovascular Accident, Hx Seizures Endocrine Medical History: Reports: Hx Diabetes Mellitus Type 2, Hx Hypothyroidism Renal/ Medical History: Reports: Hx Benign Prostatic Hyperplasia, Hx Kidney Stones. Denies: Hx Peritoneal Dialysis GI Medical History: Reports: Hx Gastroesophageal Reflux Disease, Hx Hiatal Hernia Musculoskeltal Medical History: Reports Hx Arthritis Psychiatric Medical History: Reports: Hx Depression Past Surgical History: Reports: Hx Abdominal Surgery - hernia repair. Denies: Hx Pacemaker - Immunizations Hx Diphtheria, Pertussis, Tetanus Vaccination: No Physical Exam - Vital signs Vitals: Temp Pulse Resp BP Pulse Ox 98.8 F 122 H 20 113/55 L 95 03/17/17 11:23 03/17/17 11:23 03/17/17 11:23 03/17/17 11:23 03/17/17 11:23 Course - Vital Signs Vital signs: Temp Pulse Resp BP Pulse Ox 98.8 F 122 H 20 113/55 L 95 03/17/17 11:23 03/17/17 11:23 03/17/17 11:23 03/17/17 11:23 03/17/17 11:23
[2017-03-17 12:34] LABS: ABSOLUTE EOSINOPHILS # (AUTO) 0.4 10^3/uL (0.0-0.6); ABSOLUTE LYMPHOCYTES (AUTO) 1.4 10^3/uL (0.5-4.7); ABSOLUTE MONOCYTES (AUTO) 0.8 10^3/uL (0.1-1.4); ABSOLUTE NEUT (AUTO) 12.6 10^3/uL (1.7-8.2); BASOPHILS % (AUTO) 0.2 % (0-2); EOSINOPHILS % (AUTO) 2.3 % (0-6); HEMATOCRIT 40.1 % (37.9-51.0); HEMOGLOBIN 13.5 g/dL (13.5-17.0); HGB HCT DIFFERENCE 0.4; LYMPHOCYTES % (AUTO) 8.9 % (13-45); MEAN CORPUSCULAR HEMOGLOBIN 29.7 pg (27.0-33.4); MEAN CORPUSCULAR HGB CONC 33.7 g/dL (32.0-36.0); MEAN CORPUSCULAR VOLUME 88 fl (80-97); MONOCYTES % (AUTO) 5.2 % (3-13); RED BLOOD COUNT 4.55 10^6/uL (4.35-5.55); SEGMENTED NEUTROPHILS % (AUTO) 83.4 % (42-78); WHITE BLOOD COUNT 15.1 10^3/uL (4.0-10.5)
--- NOTE | 2017-03-17 12:39 | RADIOLOGY REPORT (SQ) ---
EXAM DESCRIPTION: WRIST LEFT 3 VIEWS COMPLETED DATE/TIME: 03/17/2017 12:32 pm REASON FOR STUDY: fall/pain COMPARISON: None. NUMBER OF VIEWS: Three views. TECHNIQUE: AP, lateral, and oblique radiographic images acquired of the left wrist. LIMITATIONS: None. FINDINGS: MINERALIZATION: Normal. BONES: No acute fracture or dislocation. No worrisome bone lesions. Normal alignment. SOFT TISSUES: No soft tissue swelling. No foreign body. OTHER: No other significant finding. IMPRESSION: NEGATIVE STUDY OF THE LEFT WRIST. NO RADIOGRAPHIC EVIDENCE OF ACUTE INJURY. TECHNICAL DOCUMENTATION: JOB ID: [id number] [employer]- All Rights Reserved
[2017-03-17] MEDS ORDERED: HYDROMORPHONE HCL INJ/PF 2 MG/ML AMPULE IM ONE (12:40)
[2017-03-17 12:59] LABS: ALANINE AMINOTRANSFERASE 21 U/L (21-72); ALKALINE PHOSPHATASE 106 U/L (38-126); ANION GAP 12 (5-19); ASPARTATE AMINO TRANSFERASE 17 U/L (17-59); BILIRUBIN,DIRECT 0.5 mg/dL (0.0-0.4); BILIRUBIN,TOTAL 0.5 mg/dL (0.2-1.3); BLOOD UREA NITROGEN 11 mg/dL (7-20); CALCIUM 9.8 mg/dL (8.4-10.2); CARBON DIOXIDE 26 mmol/L (22-30); CHLORIDE 96 mmol/L (98-107); GLUCOSE 225 mg/dL (75-110); POTASSIUM 4.9 mmol/L (3.6-5.0); SODIUM 134.3 mmol/L (137-145); TOTAL PROTEIN 8.2 g/dL (6.3-8.2)
[2017-03-17 13:14] VITALS: BP 145/70
--- NOTE | 2017-03-18 03:54 | EKG REPORT ---
SEVERITY:- OTHERWISE NORMAL ECG - SINUS TACHYCARDIA LEFT AXIS DEVIATION : Confirmed by: Sari Crocker MD 18-Mar-2017 03:54:42
--- NOTE | 2017-03-19 07:54 | ER Document Report ---
ED General - General Chief Complaint: Fall Stated Complaint: WRIST PAIN Time Seen by Provider: 03/17/17 11:42 Mode of Arrival: Ambulatory Information source: Patient Notes: 81-year-old male presents with complaints of a fall injuring his left wrist. Patient notes he falls often has formed total of 15 to times this year. Patient denies any chest pain shortness of breath prior to these falls. Patient states he is on quite a bit of pain medication at home he gets dizzy and then he will fall. Patient has been worked up for his falls multiple times in the past TRAVEL OUTSIDE OF THE [place] IN LAST 30 DAYS: No - HPI Onset: Just prior to arrival Onset/Duration: Sudden Quality of pain: Achy Severity: Moderate Pain Level: 2 Associated symptoms: Other Exacerbated by: Movement Relieved by: Denies Similar symptoms previously: Yes Recently seen / treated by doctor: Yes - Related Data Allergies/Adverse Reactions: Penicillins Allergy (Severe, Verified 03/17/17 11:23) rash Past Medical History - Social History Smoking Status: Former Smoker Cigarette use (# per day): No Chew tobacco use (# tins/day): No Smoking Education Provided: No Frequency of alcohol use: None Drug Abuse: None Family History: Reviewed & Not Pertinent - Past Medical History Cardiac Medical History: Reports: Hx Coronary Artery Disease, Hx Heart Attack - about 30 years ago, Hx Hypertension Pulmonary Medical History: Reports: Hx Asthma, Hx Pneumonia Denies: Hx Bronchitis, Hx COPD, Hx Tuberculosis Neurological Medical History: Denies: Hx Cerebrovascular Accident, Hx Seizures Endocrine Medical History: Reports: Hx Diabetes Mellitus Type 2, Hx Hypothyroidism Renal/ Medical History: Reports: Hx Benign Prostatic Hyperplasia, Hx Kidney Stones. Denies: Hx Peritoneal Dialysis GI Medical History: Reports: Hx Gastroesophageal Reflux Disease, Hx Hiatal Hernia Musculoskeltal Medical History: Reports Hx Arthritis Psychiatric Medical History: Reports: Hx Depression Past Surgical History: Reports: Hx Abdominal Surgery - hernia repair. Denies: Hx Pacemaker - Immunizations Hx Diphtheria, Pertussis, Tetanus Vaccination: No Review of Systems - Review of Systems Notes: REVIEW OF SYSTEMS: CONSTITUTIONAL : Denies fever, chills, or sweats. Denies recent illness. EENT: Denies eye, ear, throat, or mouth pain or symptoms. Denies nasal or sinus congestion or discharge. Denies throat, tongue, or mouth swelling or difficulty swallowing. CARDIOVASCULAR: Denies chest pain. Denies palpitations or racing or irregular heart beat. Denies ankle edema. RESPIRATORY: Denies cough, cold, or chest congestion. Denies shortness of breath, difficulty breathing, or wheezing. GASTROINTESTINAL: Denies abdominal pain or distention. Denies nausea, vomiting , or diarrhea. Denies blood in vomitus, stools, or per rectum. Denies black, tarry stools. Denies constipation. GENITOURINARY: Denies difficulty urinating, painful urination, burning, frequency, blood in urine, or discharge. MUSCULOSKELETAL: admits to left wrist pain SKIN: Denies rash, lesions or sores. HEMATOLOGIC : Denies easy bruising or bleeding. LYMPHATIC: Denies swollen, enlarged glands. NEUROLOGICAL: Denies confusion or altered mental status. Denies passing out or loss of consciousness. Denies dizziness or lightheadedness. Denies headache. Denies weakness or paralysis or loss of use of either side. Denies problems with gait or speech. Denies sensory loss, numbness, or tingling. Denies seizures. PSYCHIATRIC: Denies anxiety or stress. Denies depression, suicidal ideation, or homicidal ideation. ALL OTHER SYSTEMS REVIEWED AND NEGATIVE. Dictation was performed using [employer] voice recognition software PHYSICAL EXAMINATION: GENERAL: Well-appearing, well-nourished and in no acute distress. HEAD: Atraumatic, normocephalic. EYES: Pupils equal round and reactive to light, extraocular movements intact, sclera anicteric, conjunctiva are normal. ENT: Nares patent, oropharynx clear without exudates. Moist mucous membranes. NECK: Normal range of motion, supple without lymphadenopathy LUNGS: Breath sounds clear to auscultation bilaterally and equal. No wheezes rales or rhonchi. HEART: Regular rate and rhythm without murmurs ABDOMEN: Soft, nontender, nondistended abdomen. No guarding, no rebound. No masses appreciated. Musculoskeletal: limited rom of the left wrist secondary to pain, erythema is noted at the ulnar aspect of the wrist. NEUROLOGICAL: Cranial nerves grossly intact. Normal speech, normal gait. Normal sensory, motor exams PSYCH: Normal mood, normal affect. SKIN: Warm, Dry, normal turgor, no rashes or lesions noted. Physical Exam - Vital signs Vitals: Temp Pulse Resp BP Pulse Ox 98.8 F 122 H 20 113/55 L 95 03/17/17 11:23 03/17/17 11:23 03/17/17 11:23 03/17/17 11:23 03/17/17 11:23 Course - Re-evaluation Re-evalutation: 03/19/17 07:54 Patient is noted to be tachycardic, he was given pain control his heart rate improved significantly, workup was performed mild white count elevation was noted which is secondary to pain. Patient is also noted to be hyperglycemic he has been made aware of this. X-ray noted no acute abnormality patient feels better with the pain control given to him here cock-up splint was performed 03/19/17 07:54 After performing a Medical Screening Examination, I estimate there is LOW risk for INTRACRANIAL HEMORRHAGE, UNSTABLE SPINE FRACTURE, CENTRAL CORD SYNDROME, CAUDA EQUINA, THORACIC AORTIC DISSECTION, PNEUMOTHORAX, PERFORATED BOWEL, RUPTURED ABDOMINAL AORTIC ANEURYSM, ACUTE TENDON RUPTURE, COMPARTMENT SYNDROME, or OPEN FRACTURE, thus I consider the discharge disposition reasonable. Also, there is no evidence or peritonitis, sepsis, or toxicity. I have reevaluated this patient multiple times and no significant life threatening changes are noted. The patient and I have discussed the diagnosis and risks, and we agree with discharging home to follow-up with their primary doctor with the understanding that symptoms and presentations can change. We also discussed returning to the Emergency Department immediately if new or worsening symptoms occur. We have discussed the symptoms which are most concerning (e.g., bloody stool, fever, changing or worsening pain, vomiting) that necessitate immediate return. - Vital Signs Vital signs: Temp Pulse Resp BP Pulse Ox 98.8 F 122 H 12 145/70 H 96 03/17/17 11:23 03/17/17 11:23 03/17/17 13:02 03/17/17 13:02 03/17/17 13:02 - Laboratory Result Diagrams: 03/17/17 12:13 03/17/17 12:13 Laboratory results interpreted by me: 03/17/17 03/17/17 12:13 12:13 WBC 15.1 H RDW 15.0 H Seg Neutrophils % 83.4 H Lymphocytes % 8.9 L Absolute Neutrophils 12.6 H Sodium 134.3 L Chloride 96 L Est GFR (Non-Af Amer) 58 L Glucose 225 H Direct Bilirubin 0.5 H - Diagnostic Test Radiology reviewed: Image reviewed, Reports reviewed - left wrist pain , no acute abnormality Procedures - Immobilization Left Wrist Time completed: 07:55 Pre-Proc Neuro Vasc Exam: Normal Immobilizer type: Cock-up Performed by: PCT Post-Proc Neuro Vasc Exam: Normal Alignment checked and good: Yes Discharge - Discharge 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
== END 2017-03-17 14:05 | disposition home or self-care (01) ==
LOC: ER 11:19
DX: E10.9 Type 1 diabetes mellitus without complications (principal); M25.532 Pain in left wrist; W19.XXXA Unspecified fall, initial encounter; Z87.891 Personal history of nicotine dependence
CPT/HCPCS: 93005; 99284; 96372; 36415; 85025; 80053; 73110; 93010; L3908; J1170

== ENCOUNTER 2017-09-08 10:45 | Day surgery (SDC) | payer MEDICARE, OTHER ==
[~2017-09-08 10:45] MED LIST: BUPIVACAINE HCL 0.75% INJ/PF (7.5 MG/1 ML) 10 ML SDV OS PRN; CHONDR SU A NA/HYALUR INTRAOC KIT (SURGICARE) ONE; EPINEPHRINE INJ/PF 1 MG/1 ML AMPULE ONE; KETOROLAC TROMETHAMINE 0.45% 4 DROP/0.4 ML DROPERETTE OS PRN; LIDOCAINE 1% INJ-PF (10 MG/ML) 30 ML SDV ONE; LIDOCAINE 4% INJ/PF (40 MG/ML) 5 ML AMPUL OS PRN
[2017-09-08] MEDS: TROPICAMIDE 1% OPH SOLN 3 ML OS PRN ×3 (11:12→11:32)
[2017-09-08] MEDS: BESIFLOXACIN HCL 0.6% OPH SUSP 5 ML BOTTLE OS PRN ×4 (11:12→12:18)
[2017-09-08] MEDS: CYCLOPENTOLATE 0.2%/PHENYLEPHRINE 1% OPH SOLN 2 ML OS PRN ×3 (11:12→11:32)
[2017-09-08] MEDS: TETRACAINE HCL 0.5% OPH SOLN 0.6 ML DROPERETTE OS PRN ×2 (11:13→11:32)
[2017-09-08] MEDS ORDERED: MIDAZOLAM 2 MG/2 ML INJ ONE ×2 (11:37)
--- NOTE | 2017-09-08 12:49 | [facility] OPERATIVE REPORT E ---
[facility] Operative Report NAME: COLE THIBODEAUX AGE: 81Y DATE OF SURGERY: 09/08/2017 ROOM: PREOPERATIVE DIAGNOSES: 1. CATARACT, LEFT EYE. 2. PUPIL MIOSIS, LEFT EYE. POSTOPERATIVE DIAGNOSES: 1. CATARACT, LEFT EYE. 2. PUPIL MIOSIS, LEFT EYE. OPERATION: Complex cataract intraocular lens implant, left eye. SURGEON: ROSSY SOLORZANO M.D. ANESTHESIA: Topical with MAC plus intraocular lidocaine. INDICATIONS FOR SURGERY: Difficulty seeing the TV and unable to drive. Best corrected visual acuity 20/50. Indications were complex for pupil dilation requiring the of use of a Malyugin ring. PROCEDURE: The patient was brought to the operating room and placed on the operating table. Topical anesthesia was administered. This consisted of instrument wipe pledgets soaked in a solution of 4% Xylocaine mixed with 0.75% Marcaine in a 1:2 ratio. A 2 x 1 cm pledget was placed in the superior fornix. A 1 x 1 cm pledget was placed in the inferior fornix. The eye was patched shut for 5 minutes. The patch and pledgets were removed. The eye was sterilely prepped and draped in the usual manner. A lid speculum was placed in the eye. A 4-0 black silk suture was placed around the superior and inferior rectus muscles to use as traction. A conjunctival peritomy was made at the 10 o'clock position. Hemostasis was attained with bipolar cautery. A posterior limbal groove was created using a crescent knife and dissected anteriorly towards the cornea. A sharp point blade was used to create a paracentesis site at the 2 o'clock position. A 2.4 mm keratome was used to enter the anterior chamber through the groove. Then 0.5 mL of 1% nonpreserved lidocaine was injected into the anterior chamber. Viscoelastic was injected into the anterior chamber. Pupil dilation was approximately 4.5 mm. A Malyugin Ring was placed stabilizing the iris. An anterior capsulotomy was performed using Utrata forceps in a capsulorrhexis fashion. Hydrodissection and hydrodelineation were performed. Phacoemulsification was performed in a [id number] technique. A total of 11.39 CDE total phaco time was used. Following this, the I/A unit was used to remove residual cortex. Viscoelastic was injected into the capsular bag. Intraocular lens model [id number]; 20.5 diopters, serial number [id number] was placed in the capsular bag. The Malyugin ring haptics were removed and the ring was removed from the eye. The I/A unit was used to remove residual viscoelastic. The wound was seen to be watertight under high and low pressure and no sutures were placed. The 4-0 black silk sutures and lid speculum were removed. The eye was shielded after Besivance drops were placed. The patient tolerated the procedure well and was sent to the recovery room in good condition. DICTATING PHYSICIAN: ROSSY SOLORZANO M.D. DICTATING PHYSICIAN: ROSSY SOLORZANO M.D. [id number] Y#: [id number] ID: [id number] JOB#: [id number] ACCT: [id number] cc:ROSSY SOLORZANO M.D. >
--- NOTE | 2017-09-08 12:54 | DISCHARGE SUMMARY E ---
Discharge Summary NAME: COLE THIBODEAUX : 1935 AGE: 81Y ADMITTED: 09/08/2017 DISCHARGED: 09/08/2017 HOSPITAL COURSE: The patient is a 81-year-old gentleman who underwent uneventful complex cataract extraction with intraocular lens implant, left eye on 09/08/2017. He will be discharged to home. He was instructed to resume preoperative medications, to take Tylenol as needed for discomfort, to keep his eye shielded, to use Besivance, Durezol, and Ilevro at 3:00 p.m. and 8:00 p.m., and to follow up in my office in 1 day. DICTATING PHYSICIAN: ROSSY SOLORZANO M.D. [id number] PHY#: [id number] ID: [id number] JOB#: [id number] ACCT: [id number] cc:ROSSY SOLORZANO M.D. >
== END 2017-09-08 12:50 | disposition home or self-care (01) ==
LOC: SC 10:45
PROVIDERS: ATTEND Ophthalmology
DX: H25.812 Combined forms of age-related cataract, left eye (principal); H57.03 Miosis; E11.9 Type 2 diabetes mellitus without complications; E03.9 Hypothyroidism, unspecified; M19.90 Unspecified osteoarthritis, unspecified site; K21.9 Gastro-esophageal reflux disease without esophagitis; J45.909 Unspecified asthma, uncomplicated; Z87.891 Personal history of nicotine dependence; Z88.0 Allergy status to penicillin; Z79.899 Other long term (current) drug therapy; Z79.84 Long term (current) use of oral hypoglycemic drugs; Z79.51 Long term (current) use of inhaled steroids
CPT/HCPCS: 66982; 82962; V2632; J2250; J3490 ×4; A9270; J0171; 142

== ENCOUNTER 2017-09-15 15:32 | Emergency (ER) | payer MEDICARE, OTHER ==
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
--- NOTE | 2017-09-15 17:37 | RADIOLOGY REPORT (SQ) ---
EXAM DESCRIPTION: CT HEAD WITHOUT COMPLETED DATE/TIME: 09/15/2017 5:25 pm REASON FOR STUDY: altered COMPARISON: 02/09/2017. TECHNIQUE: Axial images acquired through the brain without intravenous contrast. Images reviewed wi th bone, brain and subdural windows. Additional sagittal and coronal reconstructions were generated. Images stored on PACS. All CT scanners at this facility use dose modulation, iterative reconstruction, and/or weight based d osing when appropriate to reduce radiation dose to as low as reasonably achievable (ALARA). [facility]: Dose Right [facility]: CareDose [facility]: Dose Right [facility]: Teradose 4D [facility]: [employer] RADIATION DOSE: CT Rad equipment meets quality standard of care and radiation dose reduction techniq ues were employed. CTDIvol: 53.2 mGy. DLP: 1044 mGy-cm. mGy. LIMITATIONS: None. FINDINGS: VENTRICLES: Normal size and contour. CEREBRUM: No masses. No hemorrhage. No midline shift. No evidence for acute infarction. Normal gra y/white matter differentiation. No areas of low density in the white matter. CEREBELLUM: No masses. No hemorrhage. No alteration of density. No evidence for acute infarction. EXTRAAXIAL SPACES: No fluid collections. No masses. ORBITS AND GLOBE: No intra- or extraconal masses. Normal contour of globe without masses. CALVARIUM: No fracture. PARANASAL SINUSES: No fluid or mucosal thickening. SOFT TISSUES: No mass or hematoma. OTHER: No other significant finding. IMPRESSION: NORMAL BRAIN CT WITHOUT CONTRAST. EVIDENCE OF ACUTE STROKE: NO. COMMENT: Quality ID # [id number]: Final reports with documentation of one or more dose reduction techniques (e.g., Automated exposure control, adjustment of the mA and/or kV according to patient size, use of iterative reconstruction technique) TECHNICAL DOCUMENTATION: JOB ID: [id number] [employer]- All Rights Reserved Reading location - IP/workstation name: [email or web address]
--- NOTE | 2017-09-15 18:15 | EKG REPORT ---
SEVERITY:- OTHERWISE NORMAL ECG - SINUS RHYTHM BORDERLINE LEFT AXIS DEVIATION : Confirmed by: Mohan Torres MD 15-Sep-2017 18:14:48
[2017-09-15 18:20] LABS: ABSOLUTE BASOPHILS # (AUTO) 0.1 10^3/uL (0.0-0.2); ABSOLUTE EOSINOPHILS # (AUTO) 0.3 10^3/uL (0.0-0.6); ABSOLUTE LYMPHOCYTES (AUTO) 0.9 10^3/uL (0.5-4.7); ABSOLUTE MONOCYTES (AUTO) 0.6 10^3/uL (0.1-1.4); ABSOLUTE NEUT (AUTO) 10.6 10^3/uL (1.7-8.2); BASOPHILS % (AUTO) 0.4 % (0-2); EOSINOPHILS % (AUTO) 2.2 % (0-6); HEMATOCRIT 40.4 % (37.9-51.0); HEMOGLOBIN 13.6 g/dL (13.5-17.0); LYMPHOCYTES % (AUTO) 7.6 % (13-45); MEAN CORPUSCULAR HEMOGLOBIN 28.9 pg (27.0-33.4); MEAN CORPUSCULAR HGB CONC 33.5 g/dL (32.0-36.0); MEAN CORPUSCULAR VOLUME 86 fl (80-97); RED CELL DISTRIBUTION WIDTH 15.9 % (11.5-14.0); SEGMENTED NEUTROPHILS % (AUTO) 84.8 % (42-78); TOTAL CELLS COUNTED % (AUTO) 100 %; WHITE BLOOD COUNT 12.5 10^3/uL (4.0-10.5)
[2017-09-15 18:36] LABS: ALANINE AMINOTRANSFERASE 17 U/L (21-72); ALBUMIN 4.5 g/dL (3.5-5.0); ALKALINE PHOSPHATASE 76 U/L (38-126); ANION GAP 15 (5-19); ASPARTATE AMINO TRANSFERASE 26 U/L (17-59); BILIRUBIN,DIRECT 0.3 mg/dL (0.0-0.4); BILIRUBIN,TOTAL 0.4 mg/dL (0.2-1.3); BLOOD UREA NITROGEN 19 mg/dL (7-20); CALCIUM 10.1 mg/dL (8.4-10.2); CARBON DIOXIDE 24 mmol/L (22-30); CHLORIDE 100 mmol/L (98-107); GLUCOSE 293 mg/dL (75-110); SODIUM 139.4 mmol/L (137-145); TOTAL PROTEIN 8.4 g/dL (6.3-8.2)
[2017-09-15 18:42] LABS: APPEARANCE,URINE CLEAR; BILIRUBIN,URINE NEGATIVE (NEGATIVE); COLOR,URINE YELLOW; GLUCOSE, URINE 500 mg/dL (NEGATIVE); KETONES,URINE 25 mg/dL (NEGATIVE); URINE SPECIFIC GRAVITY 1.029
[2017-09-15 18:43] LABS: LEUKOCYTE ESTERASE,URINE NEGATIVE (NEGATIVE); NITRITE,URINE NEGATIVE (NEGATIVE); PROTEIN,URINE 30 mg/dL (NEGATIVE)
[2017-09-15 18:47] LABS: PLATELET COUNT 235 10^3/uL (150-450)
--- NOTE | 2017-09-15 19:34 | ER Document Report ---
ED General - General Mode of Arrival: Ambulatory Information source: Patient TRAVEL OUTSIDE OF THE [place] IN LAST 30 DAYS: No - HPI Onset: Just prior to arrival <ISABELA LOPEZ - Last Filed: 09/16/17 01:58> <NOBLE VAZQUEZ - Last Filed: 09/16/17 12:02> - General Chief Complaint: Abdominal Pain Stated Complaint: HAVING HALLUCINATIONS Time Seen by Provider: 09/15/17 16:51 Notes: History of complain-81 years old female taking oxycodone for pain presents today with confusion and hallucination according to the . He also complained of abdominal pain not associated with any nausea vomiting diarrhea. Denies any dysuria or frequency. No constitutional symptoms. REVIEW OF SYSTEMS: CONSTITUTIONAL : Denies fever, chills, or sweats. Denies recent illness. EENT: Denies eye, ear, throat, or mouth pain or symptoms. Denies nasal or sinus congestion or discharge. Denies throat, tongue, or mouth swelling or difficulty swallowing. CARDIOVASCULAR: Denies chest pain. Denies palpitations or racing or irregular heart beat. Denies ankle edema. RESPIRATORY: Denies cough, cold, or chest congestion. Denies shortness of breath, difficulty breathing, or wheezing. GASTROINTESTINAL: Denies abdominal pain or distention. Denies nausea, vomiting , or diarrhea. Denies blood in vomitus, stools, or per rectum. Denies black, tarry stools. Denies constipation. GENITOURINARY: Denies difficulty urinating, painful urination, burning, frequency, blood in urine, or discharge. MUSCULOSKELETAL: Denies back or neck pain or stiffness. Denies joint pain or swelling. SKIN: Denies rash, lesions or sores. HEMATOLOGIC : Denies easy bruising or bleeding. LYMPHATIC: Denies swollen, enlarged glands. NEUROLOGICAL: Denies confusion or altered mental status. Denies passing out or loss of consciousness. Denies dizziness or lightheadedness. Denies headache. Denies weakness or paralysis or loss of use of either side. Denies problems with gait or speech. Denies sensory loss, numbness, or tingling. Denies seizures. PSYCHIATRIC: Denies anxiety or stress. Denies depression, suicidal ideation, or homicidal ideation. ALL OTHER SYSTEMS REVIEWED AND NEGATIVE. Dictation was performed using [employer] recognition software PHYSICAL EXAMINATION: GENERAL: Well-appearing, well-nourished and in no acute distress. HEAD: Atraumatic, normocephalic. EYES: Pupils equal round and reactive to light, extraocular movements intact, sclera anicteric, conjunctiva are normal. ENT: Nares patent, oropharynx clear without exudates. Moist mucous membranes. NECK: Normal range of motion, supple without lymphadenopathy LUNGS: Breath sounds clear to auscultation bilaterally and equal. No wheezes rales or rhonchi. HEART: Regular rate and rhythm without murmurs ABDOMEN: Soft, tenderness over the epigastrium was noted., Positive bowel sounds, no organomegaly. No guarding, no rebound. No masses appreciated. Musculoskeletal: Normal range of motion, no pitting or edema. No cyanosis. NEUROLOGICAL: Cranial nerves grossly intact. Normal speech, normal gait. Normal sensory, motor exams PSYCH: Normal mood, normal affect. SKIN: Warm, Dry, normal turgor, no rashes or lesions noted. (ISABELA LOPEZ) - Related Data Allergies/Adverse Reactions: Penicillins Allergy (Intermediate, Verified 09/15/17 15:35) rash Past Medical History - Social History Smoking Status: Never Smoker Chew tobacco use (# tins/day): Yes Frequency of alcohol use: None Drug Abuse: None Family History: Reviewed & Not Pertinent Patient has suicidal ideation: No Patient has homicidal ideation: No - Past Medical History Cardiac Medical History: Reports: Hx Coronary Artery Disease, Hx Hypertension Denies: Hx Heart Attack Pulmonary Medical History: Reports: Hx Asthma, Hx Pneumonia Denies: Hx Bronchitis, Hx COPD, Hx Tuberculosis Neurological Medical History: Denies: Hx Cerebrovascular Accident, Hx Seizures Endocrine Medical History: Reports: Hx Diabetes Mellitus Type 2, Hx Hypothyroidism Renal/ Medical History: Reports: Hx Benign Prostatic Hyperplasia, Hx Kidney Stones. Denies: Hx Peritoneal Dialysis GI Medical History: Reports: Hx Gastroesophageal Reflux Disease, Hx Hiatal Hernia - ABDOMENAL HERNIA. Denies: Hx Hepatitis, Hx Ulcer Musculoskeltal Medical History: Reports Hx Arthritis Psychiatric Medical History: Reports: Hx Depression Infectious Medical History: Denies: Hx Hepatitis Past Surgical History: Reports: Hx Abdominal Surgery - hernia repair. Denies: Hx Open Heart Surgery, Hx Pacemaker - Immunizations Hx Diphtheria, Pertussis, Tetanus Vaccination: No <ISABELA LOPEZ - Last Filed: 09/16/17 01:58> Review of Systems <ISABELA LOPEZ - Last Filed: 09/16/17 01:58> <NOBLE VAZQUEZ - Last Filed: 09/16/17 12:02> - Review of Systems Notes: As per history of complain (ISABELA LOPEZ) - Vital signs Vitals: Temp Pulse Resp BP Pulse Ox 98.1 F 111 H 20 130/64 H 95 09/15/17 15:42 09/15/17 15:42 09/15/17 15:42 09/15/17 15:42 09/15/17 15:42 Course - Laboratory Result Diagrams: 09/15/17 17:40 09/15/17 17:40 - Diagnostic Test Radiology reviewed: Reports reviewed - 1. CT of the head reported by radiologist as normal 2. Abdominal series indicates constipation. <ISABELA LOPEZ - Last Filed: 09/16/17 01:58> - Laboratory Result Diagrams: 09/15/17 17:40 09/15/17 17:40 <NOBLE VAZQUEZ - Last Filed: 09/16/17 12:02> - Vital Signs Vital signs: Temp Pulse Resp BP Pulse Ox 97.6 F 78 20 151/58 H 95 09/16/17 10:28 09/16/17 10:28 09/16/17 10:28 09/16/17 10:28 09/16/17 10:28 - Laboratory Laboratory results interpreted by me: 09/15/17 09/15/17 09/15/17 17:40 17:40 17:40 WBC 12.5 H RDW 15.9 H Seg Neutrophils % 84.8 H Lymphocytes % 7.6 L Absolute Neutrophils 10.6 H Est GFR (Non-Af Amer) 58 L Glucose 293 H ALT 17 L Ammonia < 8.7 L Total Protein 8.4 H Urine Protein Urine Glucose (UA) Urine Ketones Urine Blood Urine Urobilinogen 09/15/17 17:40 WBC RDW Seg Neutrophils % Lymphocytes % Absolute Neutrophils Est GFR (Non-Af Amer) Glucose ALT Ammonia Total Protein Urine Protein 30 H Urine Glucose (UA) 500 H Urine Ketones 25 H Urine Blood SMALL H Urine Urobilinogen 2.0 H Discharge <ISABELA LOPEZ - Last Filed: 09/16/17 01:58> <GEORGENOBLE - Last Filed: 09/16/17 12:02> - Discharge Clinical Impression: Constipation by delayed colonic transit, Altered mental status Dementia Qualifiers: Dementia type: Alzheimer's disease Alzheimer's disease onset: early-onset Dementia behavioral disturbance: without behavioral disturbance Qualified Code(s ): G30.0 - Alzheimer's disease with early onset Condition: Stable Disposition: HOME, SELF-CARE Additional Instructions: Altered Mental Status An altered mental status is a change in the normal functioning of the brain. This alteration of function can range from minor decreased brain function with some forgetfulness and confusion to complete loss of consciousness and coma. There are many possible causes of an altered mental status and include brain injuries such as trauma or strokes, problems with oxygen supply to the brain, fever and infections of the brain and/or elsewhere in the body, metabolic abnormalities such as low or high blood sugar, overdoses or excessive medication ingestion, and mental and psychiatric illnesses. Sometimes the altered mental status resolves and a definite cause is not determined. If a cause for your altered mental status was found, it has likely been corrected. Your evaluation has not shown any condition that requires that you be admitted to the hospital. It is believed that you are safe to leave and return to your home. If you have a return of your symptoms, you should return for re-evaluation. NORMAL EXAM AND WORKUP: At this time, your examination and workup show no significant abnormality. No significant abnormal physical findings were noted. All laboratory, EKG, and imaging (x-ray, CT scans, ultrasound) studies that were ordered show no significant abnormality. Although your examination and all studies that were ordered showed no significant abnormal finding, there are no examinations and no studies that are 100% accurate. There is always the possibility that some abnormality could exist and not be detected with physical examination or within the limits and capabilities of laboratory and other studies. You should return or follow up as you were instructed on your visit today for further evaluation if your symptoms do not resolve. Your symptoms seem to be improving and we have not found any serious abnormality in your workup. Your symptoms may be due to sleep deprivation. You may have some early dementia The exam shows a decrease in mental ability called dementia. Signs of dementia include a gradual loss of memory and a decreased ability to reason and solve problems. Personality changes, hostility, lack of self-care, and loss of bladder or bowel control are later signs of dementia. In these later stages, patients may become confused, lost, fearful, or agitated, even in familiar places. Alzheimer's disease is the most common type of dementia. It has no known cause or specific treatment. Other causes include alcohol and drug abuse, medication effects (especially tranquilizers and sleeping pills), strokes, head injuries, and brain tumors. Sometimes severe depression in an elderly person is mistaken for dementia, and this can be treated if recognized. A complete medical evaluation and ongoing care with a doctor is important. Most people with dementia need help or supervision with daily living. Some may be able to live independently with occasional help; others require foster care or even [place] [facility] placement. Alcohol, sedatives, and antihistamines may make the symptoms worse and should be avoided. Alzheimer's disease support groups are available in some communities and can be very valuable to the entire family. Prescription medication can ease the symptoms of Alzheimer's disease in some patients. Please arrange for medical follow-up. Return here if there is a sudden change in mental function, inability to move an arm or leg, inability to speak, fever, or any other significant change. Return if you have new or worsening symptoms at any time. FOLLOW-UP CARE: If you have been referred to a physician for follow-up care, call the physician s office for an appointment as you were instructed or within the next two days. If you experience worsening or a significant change in your symptoms, notify the physician immediately or return to the Emergency Department at any time for re-evaluation. Referrals: CHERYL DILLARD PA-C [Primary Care Provider] - Follow up as needed
--- NOTE | 2017-09-15 20:36 | RADIOLOGY REPORT (SQ) ---
EXAM DESCRIPTION: ACUTE ABDOMEN SERIES COMPLETED DATE/TIME: 09/15/2017 7:54 pm REASON FOR STUDY: Abdominal pain COMPARISON: 08/05/2016 NUMBER OF VIEWS: Three views. TECHNIQUE: Frontal chest, supine abdomen and upright/ abdomen radiographic images acquired. LIMITATIONS: None. FINDINGS: CHEST: Lungs clear of infiltrates. FREE AIR: None. No abnormal gas collections. BOWEL GAS PATTERN: Nonobstructive gas pattern. Considerable fecal material is present. CALCIFICATIONS: No suspicious calcifications. HARDWARE: None in the abdomen. SOFT TISSUES: No gross mass or suggestion of organomegaly. BONES: No acute fracture. No worrisome bone lesions. OTHER: No other significant finding. IMPRESSION: Possible constipation. TECHNICAL DOCUMENTATION: JOB ID: [id number] [employer]- All Rights Reserved Reading location - IP/workstation name: [email or web address]
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
[2017-09-16 12:32] VITALS: BP 172/73
== END 2017-09-16 12:11 | disposition home or self-care (01) ==
LOC: ER 15:32
DX: K59.01 Slow transit constipation (principal); G30.0 Alzheimer's disease with early onset; F02.80 Dementia in other diseases classified elsewhere, unspecified severity, without behavioral disturbance, psychotic disturbance, mood disturbance, and anxiety; I10 Essential (primary) hypertension; I25.10 Atherosclerotic heart disease of native coronary artery without angina pectoris; J45.909 Unspecified asthma, uncomplicated; E11.9 Type 2 diabetes mellitus without complications; M15.9 Polyosteoarthritis, unspecified; Z79.891 Long term (current) use of opiate analgesic; Z88.0 Allergy status to penicillin; Z72.0 Tobacco use
CPT/HCPCS: 36415; 70450; 74022; 80053; 81001; 82140; 84484; 85025; 93005; 93010; 99285

== ENCOUNTER 2017-09-27 11:02 | Day surgery (SDC) | payer MEDICARE, OTHER ==
[~2017-09-27 11:02] MED LIST changes: +BUPIVACAINE HCL 0.75% INJ/PF (7.5 MG/1 ML) 10 ML SDV OD PRN; -BUPIVACAINE HCL 0.75% INJ/PF (7.5 MG/1 ML) 10 ML SDV OS PRN; +KETOROLAC TROMETHAMINE 0.45% 4 DROP/0.4 ML DROPERETTE OD PRN; -KETOROLAC TROMETHAMINE 0.45% 4 DROP/0.4 ML DROPERETTE OS PRN; +LIDOCAINE 4% INJ/PF (40 MG/ML) 5 ML AMPUL OD PRN; -LIDOCAINE 4% INJ/PF (40 MG/ML) 5 ML AMPUL OS PRN
[2017-09-27] MEDS: TETRACAINE HCL 0.5% OPH SOLN 0.6 ML DROPERETTE OD PRN ×2 (11:23→11:52)
[2017-09-27] MEDS: CYCLOPENTOLATE 0.2%/PHENYLEPHRINE 1% OPH SOLN 2 ML OD PRN ×3 (11:23→11:40)
[2017-09-27] MEDS: TROPICAMIDE 1% OPH SOLN 3 ML OD PRN ×3 (11:23→11:41)
[2017-09-27] MEDS: BESIFLOXACIN HCL 0.6% OPH SUSP 5 ML BOTTLE OD PRN ×4 (11:23→12:32)
[2017-09-27] MEDS ORDERED: MIDAZOLAM 2 MG/2 ML INJ ONE ×2 (11:35→11:38)
[2017-09-27] MEDS ORDERED: FENTANYL CITRATE INJ/PF 100 MCG/2 ML AMPUL ONE (11:38)
--- NOTE | 2017-09-27 13:19 | [facility] OPERATIVE REPORT E ---
[facility] Operative Report NAME: COLE THIBODEAUX AGE: 81Y DATE OF SURGERY: 09/27/2017 ROOM: PREOPERATIVE DIAGNOSIS: CATARACT, RIGHT EYE, PUPIL MYOSIS, RIGHT EYE. POSTOPERATIVE DIAGNOSIS: CATARACT, RIGHT EYE, PUPIL MYOSIS, RIGHT EYE. PROCEDURE PERFORMED: Complex cataract extraction with intraocular lens implant, right eye. SURGEON: ROSSY SOLORZANO M.D. ANESTHESIA: Topical with MAC plus intraocular lidocaine. INDICATIONS FOR SURGERY: Difficulty reading small print and watching TV, best corrected visual acuity 20/50. Indications were complex for pupil dilation requiring the use of a Malyugin ring. PROCEDURE: The patient was brought to the operating room and placed on the operating table. Topical anesthesia was administered. This consisted of instrument wipe pledgets soaked in a solution of 4% Xylocaine mixed with 0.75% Marcaine in a 1:2 ratio. A 2 x 1 cm pledget was placed in the superior fornix. A 1 x 1 cm pledget was placed in the inferior fornix. The eye was patched shut for 5 minutes. The patch and pledgets were removed. The eye was sterilely prepped and draped in the usual manner. A lid speculum was placed in the eye. A 4-0 black silk suture was placed around the superior and inferior rectus muscles to use as traction. A conjunctival peritomy was made at the 10 o'clock position. Hemostasis was attained with bipolar cautery. A posterior limbal groove was created using a crescent knife and dissected anteriorly towards the cornea. A sharp point blade was used to create a paracentesis site at the 2 o'clock position. A 2.4 mm keratome was used to enter the anterior chamber through the groove. Then 0.5 mL of 1% nonpreserved lidocaine was injected into the anterior chamber. Viscoelastic was injected into the anterior chamber. Pupil dilation was approximately 4.5 mm. A Malyugin Ring was placed stabilizing the iris. An anterior capsulotomy was performed using Utrata forceps in a capsulorrhexis fashion. Hydrodissection and hydrodelineation were performed. Phacoemulsification was performed in a [id number] technique. A total of 13.34 CDE seconds total phaco time was used. Following this, the I/A unit was used to remove residual cortex. Viscoelastic was injected into the capsular bag. Intraocular lens model [id number]; 20.5 diopters, serial number [id number] was placed in the capsular bag. The Malyugin ring haptics were removed and the ring was removed from the eye. The I/A unit was used to remove residual viscoelastic. The wound was seen to be watertight under high and low pressure and no sutures were placed. The 4-0 black silk sutures and lid speculum were removed. The eye was shielded after Besivance drops were placed. The patient tolerated the procedure well and was sent to the recovery room in good condition. DICTATING PHYSICIAN: ROSSY SOLORZANO M.D. [id number] PHY#: [id number] ID: [id number] JOB#: [id number] ACCT: [id number] cc:ROSSY SOLORZANO M.D. >
--- NOTE | 2017-09-27 19:39 | [facility] DISCHARGE SUMMARY E ---
[facility] Discharge Summary NAME: COLE THIBODEAUX AGE: 81Y ADMITTED: 09/27/2017 DISCHARGED: 09/27/2017 HOSPITAL COURSE: The patient is a 81-year-old gentleman who underwent complex cataract extraction with intraocular lens implant, right eye on 09/27/2017. He will be discharged to home. He is instructed to resume preoperative medications, to take Tylenol as needed for discomfort, to keep his eye shielded, to use Besivance, Durezol, and Ilevro at 3 p.m. and 8 p.m., and to follow up in my office in 1 day. DICTATING PHYSICIAN: ROSSY SOLORZANO M.D. 1948M [id number] PHY#: [id number] ID: [id number] JOB#: [id number] ACCT: [id number] cc:ROSSY SOLORZANO M.D. >
== END 2017-09-27 13:05 | disposition home or self-care (01) ==
LOC: SC 11:02
PROVIDERS: ATTEND Ophthalmology
PROC: 08RJ3JZ Replacement of Right Lens with Synthetic Substitute, Percutaneous Approach (ICD-10-PCS; principal; 2017-09-27 12:30)
DX: H25.811 Combined forms of age-related cataract, right eye (principal); H57.03 Miosis; Z96.1 Presence of intraocular lens; J45.909 Unspecified asthma, uncomplicated; I10 Essential (primary) hypertension; K21.9 Gastro-esophageal reflux disease without esophagitis; E11.9 Type 2 diabetes mellitus without complications; D64.9 Anemia, unspecified; E07.9 Disorder of thyroid, unspecified; Z79.51 Long term (current) use of inhaled steroids; Z79.899 Other long term (current) drug therapy; Z88.0 Allergy status to penicillin; Z79.84 Long term (current) use of oral hypoglycemic drugs; Z79.1 Long term (current) use of non-steroidal anti-inflammatories (NSAID)
CPT/HCPCS: 66982; 82962; V2632; J2250; J3490 ×4; A9270; J0171; J3010; 142

== ENCOUNTER 2018-01-08 09:50 | Inpatient (IN) | payer MEDICARE, OTHER ==
--- NOTE | 2018-01-08 10:43 | ER Document Report ---
ED Neuro Symptoms/Deficit - General Chief Complaint: S/S of Possible Stroke Stated Complaint: POSSIBLE STROKE Time Seen by Provider: 01/08/18 10:22 Notes: Patient has been acting different than normal since yesterday morning. His live -in friend says that yesterday morning he awakened and had some slurred speech and did not talk with her like normal. Seemed to be confused and not understand what was being said and did not recognize his friend. He was able to ambulate from his bed to a chair and is still able to stand and walk this morning, although he looks to be a little unsteady. Patient has never had a previous stroke. No shortness of breath or difficulty breathing. No complaints of chest pain. No complaints of abdominal pains. No nausea or vomiting or diarrhea. No UTI symptoms. No fevers. 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 IDDM, GERD, hypothyroid, BPH. TRAVEL OUTSIDE OF THE [place] IN LAST 30 DAYS: No - Related Data Allergies/Adverse Reactions: Penicillins Allergy (Intermediate, Verified 01/08/18 17:15) rash Past Medical History - Social History Smoking Status: Unknown if Ever Smoked - Chews tobacco. Chew tobacco use (# tins/day): Yes Family History: Reviewed & Not Pertinent - Past Medical History Cardiac Medical History: Reports: Hx Coronary Artery Disease Pulmonary Medical History: Reports: Hx Asthma, Hx Pneumonia Neurological Medical History: Denies: Hx Cerebrovascular Accident Endocrine Medical History: Reports: Hx Diabetes Mellitus Type 2, Hx Hypothyroidism Renal/ Medical History: Reports: Hx Benign Prostatic Hyperplasia, Hx Kidney Stones GI Medical History: Reports: Hx Gastroesophageal Reflux Disease, Hx Hiatal Hernia - ABDOMENAL HERNIA Musculoskeletal Medical History: Reports Hx Arthritis Skin Medical History: Reports Other - Pemphigoid Psychiatric Medical History: Reports: Hx Depression Infectious Medical History: Denies: Hx Hepatitis Past Surgical History: Reports: Hx Abdominal Surgery - hernia repair. Denies: Hx Open Heart Surgery, Hx Pacemaker - Immunizations Hx Diphtheria, Pertussis, Tetanus Vaccination: No Review of Systems - Review of Systems Notes: REVIEW OF SYSTEMS: CONSTITUTIONAL : Denies fever. EENT: Denies eye, ear, nose or mouth or throat pain or other symptoms. CARDIOVASCULAR: Denies chest pain. RESPIRATORY: Denies cough, chest congestion, or shortness of breath. GASTROINTESTINAL: Denies abdominal pain or nausea, vomiting, or diarrhea. GENITOURINARY: Denies difficulty or painful urinating, urinary frequency, blood in urine. MUSCULOSKELETAL: Denies back or neck pain. Denies joint pain or swelling. SKIN: Denies rash or skin lesions. NEUROLOGICAL: Denies LOC but altered mental status. See HPI. Denies headache. Denies sensory loss or motor deficits. ALL OTHER SYSTEMS REVIEWED AND NEGATIVE. Physical Exam - Vital signs Vitals: Resp Pulse Ox 12 94 01/08/18 10:10 01/08/18 10:10 Interpretation: Normal - Notes Notes: PHYSICAL EXAMINATION: GENERAL: Well-appearing, in no acute distress. Answers questions appropriately. HEAD: Atraumatic, normocephalic. EYES: Pupils equal round and reactive to light, extraocular movements intact. ENT: oropharynx clear without exudates. Moist mucous membranes. NECK: Normal range of motion, supple. LUNGS: Breath sounds clear and equal bilaterally. HEART: Regular rate and rhythm without murmurs. Heart rate 108 at bedside by me. ABDOMEN: Soft, nontender. No guarding or rebound. No masses. No abdominal bruits heard. BACK: No tenderness throughout entire back. EXTREMITIES: Normal range of motion without pain. NEUROLOGICAL: Normal speech, can stand and walk around the room, although he appears to be very slightly unsteady on his feet. Normal sensory, motor, and reflex exams. Awake, alert, and oriented x3. PSYCH: Normal mood, normal affect. SKIN: Warm, dry, no rashes. Course - Re-evaluation Re-evalutation: 01/08/18 12:28 Spoke with the hospitalist, who will see the patient in the ED. 01/08/18 13:36 Patient will be admitted to the hospitalist service, to the telemetry unit. 01/08/18 13:37 Of course, patient is far beyond any windows of eligibility to receive thrombolytics. - Vital Signs Vital signs: Temp Pulse Resp BP Pulse Ox 98.9 F 96 16 141/74 H 96 01/08/18 10:26 01/08/18 10:29 01/08/18 10:29 01/08/18 10:29 01/08/18 10:29 - Laboratory Result Diagrams: 01/08/18 10:00 01/08/18 10:00 Laboratory results interpreted by me: 01/08/18 09:57 POC Glucose 175 H - Diagnostic Test Radiology reviewed: Image reviewed, Reports reviewed - CT of the brain is normal. Radiology results interpreted by me: 01/08/18 12:28 Chest x-ray is normal. - EKG Interpretation by Me EKG shows normal: Sinus rhythm Rate: Normal Rhythm: NSR Discharge - Discharge Clinical Impression: Stroke Condition: Stable Disposition: ADMITTED INPATIENT Admitting Provider: Hospitalist Unit Admitted: Telemetry
[2018-01-08 11:06] LABS: ABSOLUTE EOSINOPHILS # (AUTO) 0.1 10^3/uL (0.0-0.6); ABSOLUTE LYMPHOCYTES (AUTO) 0.7 10^3/uL (0.5-4.7); ABSOLUTE MONOCYTES (AUTO) 0.5 10^3/uL (0.1-1.4); ABSOLUTE NEUT (AUTO) 9.6 10^3/uL (1.7-8.2); BASOPHILS % (AUTO) 0.1 % (0-2); EOSINOPHILS % (AUTO) 0.6 % (0-6); HEMOGLOBIN 14.7 g/dL (13.5-17.0); LYMPHOCYTES % (AUTO) 6.4 % (13-45); MEAN CORPUSCULAR HEMOGLOBIN 29.3 pg (27.0-33.4); MEAN CORPUSCULAR HGB CONC 34.3 g/dL (32.0-36.0); MEAN CORPUSCULAR VOLUME 86 fl (80-97); MONOCYTES % (AUTO) 4.6 % (3-13); PLATELET COUNT 270 10^3/uL (150-450); RED BLOOD COUNT 5.02 10^6/uL (4.35-5.55); RED CELL DISTRIBUTION WIDTH 18.4 % (11.5-14.0); SEGMENTED NEUTROPHILS % (AUTO) 88.3 % (42-78); TOTAL CELLS COUNTED % (AUTO) 100 %; WHITE BLOOD COUNT 10.9 10^3/uL (4.0-10.5)
--- NOTE | 2018-01-08 11:16 | RADIOLOGY REPORT (SQ) ---
EXAM DESCRIPTION: CHEST SINGLE VIEW COMPLETED DATE/TIME: 01/08/2018 10:57 am REASON FOR STUDY: Stroke symptoms, weakness COMPARISON: 02/09/2017 EXAM PARAMETERS: NUMBER OF VIEWS: One view. TECHNIQUE: Single frontal radiographic view of the chest acquired. RADIATION DOSE: NA LIMITATIONS: None. FINDINGS: LUNGS AND PLEURA: Stable scarring in the left lung base. Lungs are otherwise unremarkable . MEDIASTINUM AND HILAR STRUCTURES: No masses. Contour normal. HEART AND VASCULAR STRUCTURES: Heart normal in size. Normal vasculature. BONES: No acute findings. HARDWARE: None in the chest. OTHER: No other significant finding. IMPRESSION: No evidence of an acute cardiopulmonary process. TECHNICAL DOCUMENTATION: JOB ID: [id number] [email or web address]- All Rights Reserved Reading location - IP/workstation name: [email or web address]
--- NOTE | 2018-01-08 11:29 | RADIOLOGY REPORT (SQ) ---
EXAM DESCRIPTION: CT HEAD WITHOUT COMPLETED DATE/TIME: 01/08/2018 11:08 am REASON FOR STUDY: Stroke symptoms (slurred speech) since yesterday. COMPARISON: 09/06/2017. TECHNIQUE: Axial images acquired through the brain without intravenous contrast. Images reviewed wi th bone, brain and subdural windows. Images stored on PACS. All CT scanners at this facility use dose modulation, iterative reconstruction, and/or weight based d osing when appropriate to reduce radiation dose to as low as reasonably achievable (ALARA). [facility]: Dose Right [facility]: CareDose [facility]: Dose Right [facility]: Teradose 4D [facility]: Smart [employer] RADIATION DOSE: CT Rad equipment meets quality standard of care and radiation dose reduction techniq ues were employed. CTDIvol: 53.2 mGy. DLP: 991 mGy-cm. mGy. LIMITATIONS: None. FINDINGS: VENTRICLES: Normal size and contour. CEREBRUM: No masses. No hemorrhage. No midline shift. No evidence for acute infarction. Minimal de creased attenuation subcortical periventricular white matter to suggest chronic white matter change. No areas of low density in the white matter. CEREBELLUM: No masses. No hemorrhage. No alteration of density. No evidence for acute infarction. EXTRAAXIAL SPACES: No fluid collections. No masses. ORBITS AND GLOBE: No intra- or extraconal masses. Normal contour of globe without masses. CALVARIUM: No fracture. PARANASAL SINUSES: No fluid or mucosal thickening. SOFT TISSUES: No mass or hematoma. OTHER: No other significant finding. IMPRESSION: MINIMAL CHRONIC WHITE MATTER CHANGE. NO SIGNIFICANT ABNORMALITY SEEN. EVIDENCE OF ACUTE STROKE: NO. COMMENT: Quality ID # [id number]: Final reports with documentation of one or more dose reduction techniques (e.g., Automated exposure control, adjustment of the mA and/or kV according to patient size, use of iterative reconstruction technique) TECHNICAL DOCUMENTATION: JOB ID: [id number] 2010 [employer]- All Rights Reserved Reading location - IP/workstation name: [email or web address]
[2018-01-08 11:31] LABS: ALANINE AMINOTRANSFERASE 23 U/L (21-72); ALBUMIN 3.7 g/dL (3.5-5.0); ALKALINE PHOSPHATASE 71 U/L (38-126); ANION GAP 11 (5-19); ASPARTATE AMINO TRANSFERASE 15 U/L (17-59); BILIRUBIN,DIRECT 0.5 mg/dL (0.0-0.4); BLOOD UREA NITROGEN 15 mg/dL (7-20); CALCIUM 8.9 mg/dL (8.4-10.2); CARBON DIOXIDE 31 mmol/L (22-30); CHLORIDE 96 mmol/L (98-107); GLUCOSE 171 mg/dL (75-110); POTASSIUM 3.8 mmol/L (3.6-5.0); SODIUM 138.3 mmol/L (137-145); TOTAL PROTEIN 7.4 g/dL (6.3-8.2)
[2018-01-08 11:38] LABS: CREATINE KINASE < 20 U/L (55-170)
[2018-01-08 11:40] LABS: APPEARANCE,URINE CLEAR; BILIRUBIN,URINE NEGATIVE (NEGATIVE); COLOR,URINE AMBER; GLUCOSE, URINE NEGATIVE (NEGATIVE); KETONES,URINE 20 mg/dL (NEGATIVE); LEUKOCYTE ESTERASE,URINE NEGATIVE (NEGATIVE); NITRITE,URINE NEGATIVE (NEGATIVE); PROTEIN,URINE 30 mg/dL (NEGATIVE); URINE SPECIFIC GRAVITY 1.019
[2018-01-08] MEDS ORDERED: DEXTROSE 50%-WATER 25 GM/50 ML DISP.SYRIN IV PRN ×2 (13:03)
[2018-01-08] MEDS ORDERED: DEXTROSE 40% GEL 15 GM TUBE PO PRN ×2 (13:03)
[2018-01-08] MEDS ORDERED: GLUCAGON,HUMAN RECOMB 1 MG INJ IM PRN (13:03)
--- NOTE | 2018-01-08 13:19 | PDOC H&P ---
History of Present Illness Admission Date/PCP: CHERYL DILLARD PA-C History of Present Illness: COLE THIBODEAUX is a 82 year old male patient with past medical history of type 2 diabetes mellitus, hypothyroidism, GERD, coronary artery disease, hypertension, hiatal hernia and osteoarthritis brought with chief complaint of altered mental status. Since patient is somewhat sleepy and somnolent is not source of history. History is obtained from ER attending note and from his significant other who is in the room during my encounter. His significant other states patient has been acting different than normal since yesterday morning. He looks at her as if "she is from different planet". She states yesterday morning he awakened and had some slurred speech and did not talk with her like normal. Is able to ambulate from his bed to a chair and is still able to stand and walk this morning, although he looks to be a little unsteady. Patient has not had previous stroke. Review of system and detailed histories unobtainable. Past Medical History Cardiac Medical History: Reports: Coronary Artery Disease, Hypertension Pulmonary Medical History: Reports: Asthma, Pneumonia Endocrine Medical History: Reports: Diabetes Mellitus Type 2, Hypothyroidism GI Medical History: Reports: Gastroesophageal Reflux Disease, Hiatal Hernia - ABDOMENAL HERNIA Denies: Hepatitis Musculoskeltal Medical History: Reports: Arthritis Skin Medical History: Reports: Other - Pemphigoid Psychiatric Medical History: Reports: Depression Hematology: Reports: Anemia - 2007, 2013 Denies: Sickle Cell Disease Past Surgical History Past Surgical History: Reports: Other - Hernia correction Denies: Pacemaker Social History Smoking Status: Former Smoker - Chews tobacco. Frequency of Alcohol Use: None Hx Recreational Drug Use: No Drugs: None Hx Prescription Drug Abuse: No - Advance Directive Resuscitation Status: Full Code Family History Family History: Reviewed & Not Pertinent, Arthritis, Hypertension Parental Family History Reviewed: Yes Children Family History Reviewed: Yes Sibling(s) Family History Reviewed.: Yes Medication/Allergy Home Medications: Albuterol Sulfate [Ventolin Hfa] 2 puff IH Q4HP PRN 02/09/17 Dutasteride [Avodart] 0.5 mg PO DAILY 02/09/17 Insulin Glargine,Hum.rec.anlog [Lantus Insulin 100 Unit/mL] 30 unit SUBCUT BID 02/09/17 Levothyroxine Sodium [Synthroid] 75 mcg PO QAM 02/09/17 Metformin HCl [Metformin HCl ER] 500 mg PO BIDBS 02/09/17 Omeprazole 40 mg PO DAILY 02/09/17 Oxycodone HCl 15 mg PO Q4HP PRN 02/09/17 Tamsulosin HCl [Flomax 0.4 mg Cap.sr] 0.4 mg PO QHS 02/09/17 Glimepiride [Amaryl 4 mg Tablet] 4 mg PO BIDACBS tablet 02/11/17 Cholecalciferol (Vitamin D3) [Vitamin D3 2000 unit Tablet] 2,000 unit PO DAILY 09/05/17 Lactulose [Constulose] 10 gm PO BID 09/05/17 Niacinamide 500 mg PO BID 09/05/17 Oxycodone Myristate [Xtampza ER] 36 mg PO Q12H 09/05/17 Besifloxacin HCl [Besivance 0.6% Oph Susp 5 ml] 1 drop OP ASDIR 09/23/17 Difluprednate [Durezol] 1 drop OP ASDIR 09/23/17 Nepafenac [Ilevro] 1 drop OP ASDIR 09/23/17 Allergies/Adverse Reactions: Penicillins Allergy (Intermediate, Verified 09/27/17 11:31) rash Review of Systems ROS unobtainable: Due to mental status Physical Exam Vital Signs: Temp Pulse Resp BP Pulse Ox 98.9 F 96 16 141/74 H 96 01/08/18 10:26 01/08/18 10:29 01/08/18 10:29 01/08/18 10:29 01/08/18 10:29 Intake & Output 01/07/18 01/08/18 01/09/18 06:59 06:59 06:59 Weight 73.5 kg General appearance: PRESENT: no acute distress Head exam: PRESENT: atraumatic Mouth exam: PRESENT: dry mucosa Neck exam: ABSENT: carotid bruit, JVD, lymphadenopathy, thyromegaly Respiratory exam: PRESENT: clear to auscultation ester. ABSENT: rales, rhonchi, wheezes Cardiovascular exam: PRESENT: RRR. ABSENT: diastolic murmur, rubs, systolic murmur GI/Abdominal exam: PRESENT: normal bowel sounds, soft. ABSENT: distended, guarding, mass, organolmegaly, rebound, tenderness Extremities exam: PRESENT: full ROM. ABSENT: calf tenderness, clubbing, pedal edema Results Laboratory Results: 01/08/18 10:00 01/08/18 10:00 01/08/18 01/08/18 01/08/18 10:00 10:00 11:20 WBC 10.9 H RBC 5.02 Hgb 14.7 Hct 43.0 MCV 86 MCH 29.3 MCHC 34.3 RDW 18.4 H Plt Count 270 Seg Neutrophils % 88.3 H Lymphocytes % 6.4 L Monocytes % 4.6 Eosinophils % 0.6 Basophils % 0.1 Absolute Neutrophils 9.6 H Absolute Lymphocytes 0.7 Absolute Monocytes 0.5 Absolute Eosinophils 0.1 Absolute Basophils 0.0 Sodium 138.3 Potassium 3.8 Chloride 96 L Carbon Dioxide 31 H Anion Gap 11 BUN 15 Creatinine 1.03 Est GFR ( Amer) > 60 Est GFR (Non-Af Amer) > 60 Glucose 171 H Calcium 8.9 Total Bilirubin 1.0 AST 15 L ALT 23 Alkaline Phosphatase 71 Total Protein 7.4 Albumin 3.7 Urine Color VANESSA Urine Appearance CLEAR Urine pH 5.0 Ur Specific [place] 1.019 Urine Protein 30 H Urine Glucose (UA) NEGATIVE Urine Ketones 20 H Urine Blood NEGATIVE Urine Nitrite NEGATIVE Ur Leukocyte Esterase NEGATIVE Urine WBC (Auto) 2 Urine RBC (Auto) 3 01/08/18 01/08/18 10:00 10:00 Creatine Kinase < 20 L Troponin I 0.041 Impressions: Head CT 01/08/18 10:33 IMPRESSION: MINIMAL CHRONIC WHITE MATTER CHANGE. NO SIGNIFICANT ABNORMALITY SEEN. EVIDENCE OF ACUTE STROKE: NO. Chest X-Ray 01/08/18 10:34 IMPRESSION: No evidence of an acute cardiopulmonary process. Assessment & Plan - Diagnosis (1) Possible stroke Is this a current diagnosis for this admission?: Yes Plan: CT scan of the head is negative. Patient scheduled to have MRI of the brain. Bilateral carotid Doppler. Echocardiogram. Aspirin, Lipitor. Neuro check. (2) Type 2 diabetes mellitus Is this a current diagnosis for this admission?: Yes Plan: Since we will keep him n.p.o. patient will be on sliding scale. (3) Hypertension Qualifiers: Hypertension type: essential hypertension Qualified Code(s): I10 - Essential (primary) hypertension Is this a current diagnosis for this admission?: Yes Plan: I will hold his antihypertensive medication temporarily. (4) Coronary artery disease Qualifiers: Coronary Disease-Associated Artery/Lesion type: [place] artery Is this a current diagnosis for this admission?: Yes Plan: No angina currently. (5) Hypothyroidism (acquired) Is this a current diagnosis for this admission?: Yes Plan: We will continue Synthroid (6) Gastro-esophageal reflux disease with esophagitis Is this a current diagnosis for this admission?: Yes Plan: We will start him on lansoprazole
--- NOTE | 2018-01-08 17:53 | RADIOLOGY REPORT (SQ) ---
EXAM DESCRIPTION: MRI HEAD WITHOUT COMPLETED DATE/TIME: 01/08/2018 5:41 pm REASON FOR STUDY: Acute ischemic stroke COMPARISON: CT dated 01/08/2018. TECHNIQUE: Multiplanar imaging includes non-contrasted T1, T2, FLAIR, and diffusion with ADC map seq uences. Images stored on PACS. LIMITATIONS: Significant motion artifact. FINDINGS: ANATOMY: No anomalies. Normal vascular flow voids. Pituitary fossa normal. CSF SPACES: Normal in size and contour. No hemorrhage. CEREBRUM: Limited due to significant motion artifact. Sulci and gyri normal in size and contour. Nor mal white matter signal on FLAIR imaging. No evidence of hemorrhage, mass, or extraaxial fluid colle ction. POSTERIOR FOSSA: Limited due to significant motion artifact. No signal alteration. No hemorrhage. No edema, masses or mass effect. Internal auditory canals, cerebello-pontine angles, mastoids normal. DIFFUSION IMAGING: Small focal area of restricted diffusion in the left parietal lobe. ORBITS: No masses. Globes normal. PARANASAL SINUSES: No fluid levels. Mucosa normal. OTHER: No other significant finding. IMPRESSION: LIMITED STUDY DUE TO SIGNIFICANT MOTION ARTIFACT. THERE IS A SMALL FOCAL AREA OF RESTRI CTED DIFFUSION IN THE LEFT PARIETAL LOBE CONSISTENT WITH ACUTE INFARCT. EVIDENCE OF ACUTE STROKE: YES. LEFT MCA TECHNICAL DOCUMENTATION: JOB ID: [id number] [employer]- All Rights Reserved Reading location - IP/workstation name: [email or web address]
[2018-01-08] MEDS: NORMAL SALINE 1000 ML 1,000 ML IV PRN (21:31)
[2018-01-08] MEDS: ATORVASTATIN CALCIUM 80 MG TABLET PO SCH (22:00)
--- NOTE | 2018-01-08 22:58 | EKG REPORT ---
SEVERITY:- BORDERLINE ECG - SINUS RHYTHM PROBABLE LEFT ATRIAL ABNORMALITY LEFT AXIS DEVIATION : Confirmed by: Carlye Infante 08-Jan-2018 22:57:00
[2018-01-09] MEDS: INSULIN LISPRO 100 UNIT/ML 3 ML VIAL SUBCUT PRN (04:19)
[2018-01-09 05:31] LABS: ABSOLUTE EOSINOPHILS # (AUTO) 0.1 10^3/uL (0.0-0.6); ABSOLUTE LYMPHOCYTES (AUTO) 0.6 10^3/uL (0.5-4.7); ABSOLUTE MONOCYTES (AUTO) 0.6 10^3/uL (0.1-1.4); ABSOLUTE NEUT (AUTO) 6.9 10^3/uL (1.7-8.2); BASOPHILS % (AUTO) 0.4 % (0-2); EOSINOPHILS % (AUTO) 0.9 % (0-6); HEMATOCRIT 38.3 % (37.9-51.0); LYMPHOCYTES % (AUTO) 7.6 % (13-45); MEAN CORPUSCULAR HEMOGLOBIN 28.9 pg (27.0-33.4); MEAN CORPUSCULAR HGB CONC 33.9 g/dL (32.0-36.0); MEAN CORPUSCULAR VOLUME 85 fl (80-97); MONOCYTES % (AUTO) 7.4 % (3-13); PLATELET COUNT 232 10^3/uL (150-450); RED BLOOD COUNT 4.49 10^6/uL (4.35-5.55); RED CELL DISTRIBUTION WIDTH 17.9 % (11.5-14.0); SEGMENTED NEUTROPHILS % (AUTO) 83.7 % (42-78); TOTAL CELLS COUNTED % (AUTO) 100 %; WHITE BLOOD COUNT 8.3 10^3/uL (4.0-10.5)
[2018-01-09 06:00] LABS: ALANINE AMINOTRANSFERASE 24 U/L (21-72); ALBUMIN 2.7 g/dL (3.5-5.0); ALKALINE PHOSPHATASE 53 U/L (38-126); ANION GAP 12 (5-19); ASPARTATE AMINO TRANSFERASE 13 U/L (17-59); BILIRUBIN,DIRECT 0.4 mg/dL (0.0-0.4); BILIRUBIN,TOTAL 0.8 mg/dL (0.2-1.3); BLOOD UREA NITROGEN 12 mg/dL (7-20); CALCIUM 8.2 mg/dL (8.4-10.2); CARBON DIOXIDE 24 mmol/L (22-30); CHLORIDE 102 mmol/L (98-107); GLUCOSE 94 mg/dL (75-110); POTASSIUM 3.7 mmol/L (3.6-5.0); SODIUM 138.3 mmol/L (137-145); TOTAL PROTEIN 5.5 g/dL (6.3-8.2)
[2018-01-09] MEDS: ENOXAPARIN SODIUM INJ 40 MG/0.4 ML DISP.SYRIN SUBCUT SCH (10:33)
[2018-01-09] MEDS: ASPIRIN 81 MG TABLET, ENT COATED PO SCH (10:33)
--- NOTE | 2018-01-09 14:56 | RADIOLOGY REPORT (SQ) ---
EXAM DESCRIPTION: CAROTID DOPPLER COMPLETED DATE/TIME: 01/09/2018 2:28 pm REASON FOR STUDY: Acute ischemic stroke COMPARISON: 05/04/2012 TECHNIQUE: Grayscale ultrasound, Doppler velocity and spectra, and color Doppler images acquired of the extra-cranial carotid and vertebral arteries. Images stored on PACS. LIMITATIONS: None. FINDINGS: RIGHT CAROTID CCA Velocities: Within normal limits. ICA Velocities Peak systolic 0.94 m/s. End diastolic 0.12 m/s. Proximal ICA/CCA peak systolic ratio 1.2. Partially calcified plaque in the ICA. LEFT CAROTID CCA Velocities: Within normal limits. ICA Velocities Peak systolic 1.30 m/s. End diastolic 0.23 m/s. Proximal ICA/CCA peak systolic ratio 1.4. Partially calcified plaque in the ICA. VERTEBRAL ARTERIES: Antegrade flow. Normal waveforms. SUBCLAVIAN ARTERIES: Not imaged. OTHER: No other significant finding. IMPRESSION: Right: Less than 50% stenosis ICA. Left: 50- 69% stenosis ICA. COMMENT: Quality ID #[id number]: Velocity criteria are extrapolated from the diameter data as defined by t he Society of Radiologists in Ultrasound Consensus Conference. Radiology 2003: 229; 340-346. TECHNICAL DOCUMENTATION: JOB ID: [id number] [employer]- All Rights Reserved Reading location - IP/workstation name: [email or web address]
[2018-01-09] MEDS ORDERED: FENTANYL 25 MCG/HR PATCH.TD72 TD SCH ×2 (15:00→22:00)
[2018-01-09] MEDS ORDERED: MORPHINE SULFATE 10 MG/ML INJ IV PRN ×2 (17:24→18:11)
[2018-01-09] MEDS: NORMAL SALINE 1000 ML 1,000 ML IV PRN (17:49)
--- NOTE | 2018-01-09 17:54 | XCELERA REPORT ---
[address] [address] Transthoracic Echocardiogram Report Name: COLE THIBODEAUX Age: 82 yrs Gender: Male : 1935 Patient Status: Inpatient Patient Location: [address] [place] [address] Study Date: 01/09/2018 11:34 AM Height: 68 in Weight: 162 lb BSA: 1.9 m2 Procedure: A complete two-dimensional transthoracic echocardiogram was performed (2D, M-mode, spectral and color flow Doppler). The study was technically adequate with some images being suboptimal in quality. Reason For Study: Stroke Ordering Physician: DAYO JOHNSON Performed By: Gogo Estes Interpretation Summary The left ventricular ejection fraction is normal. There is mild concentric left ventricular hypertrophy. The left ventricle is grossly normal size. Doppler measurements suggest pseudonormalized left ventricular relaxation, which is associated with grade II/IV or mild to moderate diastolic dysfunction Regional wall motion abnormalities cannot be excluded due to limited visualization. The right ventricle is mild to moderately dilated. The right ventricle appears to be hypertrophied The right ventricular systolic function is normal. Borderline right atrial enlargement. The left atrium is mildly dilated. There is no mitral valve stenosis. There is a trace to mild amount of mitral regurgitation There is no aortic valve stenosis There is a mild amount of aortic regurgitation There is a mild amount of tricuspid regurgitation There is mild pulmonary hypertension by echo Right ventricular systolic pressure is estimated to be elevated at 30- 40mmHg. The aortic root is not well visualized but is probably normal size. The inferior vena cava was not well visualized There is no pericardial effusion. Consider LOI if clinically indicated. May consider mobile cardiac telemetry monitoring (MCT) for ruling out transient AFIB. MMode/2D Measurements & Calculations RVDd: 2.8 cm LVIDd: 5.2 cm FS: 33.2 % Ao root diam: 2.8 cm IVSd: 1.0 cm LVIDs: 3.5 cm EDV(Teich): 131.6 ml LVPWd: 1.0 cm ESV(Teich): 50.7 ml Ao root area: 6.1 cm2 EF(Teich): 61.5 % LA dimension: 4.0 cm Doppler Measurements & Calculations MV E max eduardo: MV P1/2t max eduardo: Ao V2 max: LV V1 max P.4 cm/sec 46.9 cm/sec 164.1 cm/sec 3.1 mmHg MV A max eduardo: MV P1/2t: 75.0 msec Ao max PG: LV V1 max: 92.8 cm/sec 10.8 mmHg 87.4 cm/sec MV E/A: 0.50 MVA(P1/2t): 2.9 cm2 MV dec slope: 183.0 cm/sec2 MV dec time: 0.25 sec PA V2 max: TR max eduardo: 79.0 cm/sec 266.0 cm/sec PA max PG: TR max P.3 mmHg 2.5 mmHg Left Ventricle The left ventricle is grossly normal size. There is mild concentric left ventricular hypertrophy. The left ventricular ejection fraction is normal. Doppler measurements suggest pseudonormalized left ventricular relaxation, which is associated with grade II/IV or mild to moderate diastolic dysfunction. Regional wall motion abnormalities cannot be excluded due to limited visualization. Right Ventricle The right ventricle is mild to moderately dilated. The right ventricle appears to be hypertrophied. The right ventricular systolic function is normal. Atria Borderline right atrial enlargement. The left atrium is mildly dilated. Interarterial septum not well visualized and not well dopplered. Cannot comment on ASD/PFO presence. Mitral Valve The mitral valve is grossly normal. There is no mitral valve stenosis. There is a trace to mild amount of mitral regurgitation. Aortic Valve The aortic valve is not well visualized secondary to technical limitations. There is no aortic valve stenosis. There is a mild amount of aortic regurgitation. Tricuspid Valve The tricuspid valve is not well visualized, but is grossly normal. There is no tricuspid stenosis. There is a mild amount of tricuspid regurgitation. There is mild pulmonary hypertension by echo. Right ventricular systolic pressure is estimated to be elevated at 30-40mmHg. Pulmonic Valve The pulmonic valve is not well visualized. Great Vessels The aortic root is not well visualized but is probably normal size. The inferior vena cava was not well visualized. Effusions There is no pericardial effusion. Incidental Findings Consider LOI if clinically indicated. May consider mobile cardiac telemetry monitoring (MCT) for ruling out transient AFIB. : DAYO JOHNSON > Carley Infante
--- NOTE | 2018-01-09 19:38 | PDOC PROGRESS REPORT ---
Subjective Progress Note for:: 01/09/18 Subjective:: This is 82 years old male patient with multiple comorbidities he presented with chief complaint of altered mental status and slurred speech. CT scan of the brain is negative but his MRI revealed small focal ischemic infarct in the left parietal lobe. This morning patient complaining of back pain otherwise his vital signs are relatively stable. Reason For Visit: POSSIBLE STROKE Physical Exam Vital Signs: Temp Pulse Resp BP Pulse Ox 97.4 F 76 15 146/54 H 100 01/09/18 15:58 01/09/18 16:00 01/09/18 16:00 01/09/18 16:00 01/09/18 16:00 Intake & Output 01/08/18 01/09/18 01/10/18 06:59 06:59 06:59 Output Total 700 Balance -700 Weight 77.3 kg Results Laboratory Results: 01/09/18 05:15 01/09/18 05:15 01/09/18 01/09/18 05:15 05:15 WBC 8.3 RBC 4.49 Hgb 13.0 L Hct 38.3 MCV 85 MCH 28.9 MCHC 33.9 RDW 17.9 H Plt Count 232 Seg Neutrophils % 83.7 H Lymphocytes % 7.6 L Monocytes % 7.4 Eosinophils % 0.9 Basophils % 0.4 Absolute Neutrophils 6.9 Absolute Lymphocytes 0.6 Absolute Monocytes 0.6 Absolute Eosinophils 0.1 Absolute Basophils 0.0 Sodium 138.3 Potassium 3.7 Chloride 102 Carbon Dioxide 24 Anion Gap 12 BUN 12 Creatinine 0.70 Est GFR ( Amer) > 60 Est GFR (Non-Af Amer) > 60 Glucose 94 Calcium 8.2 L Total Bilirubin 0.8 AST 13 L ALT 24 Alkaline Phosphatase 53 Total Protein 5.5 L Albumin 2.7 L Impressions: Head MRI 01/08/18 00:00 IMPRESSION: LIMITED STUDY DUE TO SIGNIFICANT MOTION ARTIFACT. THERE IS A SMALL FOCAL AREA OF RESTRICTED DIFFUSION IN THE LEFT PARIETAL LOBE CONSISTENT WITH ACUTE INFARCT. EVIDENCE OF ACUTE STROKE: YES. LEFT MCA Head CT 01/08/18 10:33 IMPRESSION: MINIMAL CHRONIC WHITE MATTER CHANGE. NO SIGNIFICANT ABNORMALITY SEEN. EVIDENCE OF ACUTE STROKE: NO. Chest X-Ray 01/08/18 10:34 IMPRESSION: No evidence of an acute cardiopulmonary process. Carotid Doppler Study 01/09/18 00:00 IMPRESSION: Right: Less than 50% stenosis ICA. Left: 50- 69% stenosis ICA. Assessment & Plan - Diagnosis (1) Acute ischemic stroke Is this a current diagnosis for this admission?: Yes (2) Type 2 diabetes mellitus Is this a current diagnosis for this admission?: Yes Plan: Patient has been started on Plavix, aspirin and high intensity Lipitor. (3) Hypertension Qualifiers: Hypertension type: essential hypertension Qualified Code(s): I10 - Essential (primary) hypertension Is this a current diagnosis for this admission?: Yes Plan: I will hold his antihypertensive medication temporarily. (4) Coronary artery disease Qualifiers: Coronary Disease-Associated Artery/Lesion type: [place] artery Is this a current diagnosis for this admission?: Yes Plan: No angina currently. (5) Hypothyroidism (acquired) Is this a current diagnosis for this admission?: Yes Plan: We will continue Synthroid (6) Gastro-esophageal reflux disease with esophagitis Is this a current diagnosis for this admission?: Yes Plan: We will start him on lansoprazole - Time Time Spent with patient: 25-34 minutes
[2018-01-09] MEDS: ATORVASTATIN CALCIUM 80 MG TABLET PO SCH (22:37)
[2018-01-10] MEDS: ENOXAPARIN SODIUM INJ 40 MG/0.4 ML DISP.SYRIN SUBCUT SCH (10:28)
[2018-01-10] MEDS: ASPIRIN 81 MG TABLET, ENT COATED PO SCH (10:28)
[2018-01-10] MEDS: NORMAL SALINE 1000 ML 1,000 ML IV PRN (10:28)
--- NOTE | 2018-01-10 16:43 | PDOC PROGRESS REPORT ---
Subjective Progress Note for:: 01/10/18 Subjective:: This is a 4 years old male patient admitted for acute confusional state due to acute ischemic stroke involving the left parietal lobe. Currently patient is awake alert and conversant. He is able to participate with physical therapy. Physical therapist recommended patient needs to be placed in rehab for acute rehabilitation. Consult was made to party planner. Reason For Visit: POSSIBLE STROKE Physical Exam Vital Signs: Temp Pulse Resp BP Pulse Ox 97.5 F 78 16 151/59 H 98 01/10/18 15:27 01/10/18 16:00 01/10/18 16:00 01/10/18 16:00 01/10/18 16:00 Intake & Output 01/09/18 01/10/18 01/11/18 06:59 06:59 06:59 Intake Total 0 1000 Output Total 700 820 225 Balance -700 -820 775 Weight 75.9 kg General appearance: PRESENT: no acute distress Head exam: PRESENT: atraumatic Mouth exam: PRESENT: moist Neck exam: ABSENT: carotid bruit, JVD, lymphadenopathy, thyromegaly Respiratory exam: PRESENT: clear to auscultation ester. ABSENT: rales, rhonchi, wheezes Cardiovascular exam: PRESENT: RRR. ABSENT: diastolic murmur, rubs, systolic murmur GI/Abdominal exam: PRESENT: normal bowel sounds, soft. ABSENT: distended, guarding, mass, organolmegaly, rebound, tenderness Neurological exam: PRESENT: alert, awake, oriented to time, oriented to situation Results Laboratory Results: 01/09/18 05:15 01/09/18 05:15 Impressions: Head MRI 01/08/18 00:00 IMPRESSION: LIMITED STUDY DUE TO SIGNIFICANT MOTION ARTIFACT. THERE IS A SMALL FOCAL AREA OF RESTRICTED DIFFUSION IN THE LEFT PARIETAL LOBE CONSISTENT WITH ACUTE INFARCT. EVIDENCE OF ACUTE STROKE: YES. LEFT MCA Head CT 01/08/18 10:33 IMPRESSION: MINIMAL CHRONIC WHITE MATTER CHANGE. NO SIGNIFICANT ABNORMALITY SEEN. EVIDENCE OF ACUTE STROKE: NO. Chest X-Ray 01/08/18 10:34 IMPRESSION: No evidence of an acute cardiopulmonary process. Carotid Doppler Study 01/09/18 00:00 IMPRESSION: Right: Less than 50% stenosis ICA. Left: 50- 69% stenosis ICA. Assessment & Plan - Diagnosis (1) Acute ischemic stroke Is this a current diagnosis for this admission?: Yes Plan: Patient's clinical stable and he does not have neurologic deficits. Continue aspirin, Plavix, Lipitor, bronchodilators. (2) Type 2 diabetes mellitus Is this a current diagnosis for this admission?: Yes Plan: Patient has been started on Plavix, aspirin and high intensity Lipitor. (3) Hypertension Qualifiers: Hypertension type: essential hypertension Qualified Code(s): I10 - Essential (primary) hypertension Is this a current diagnosis for this admission?: Yes Plan: I will hold his antihypertensive medication temporarily. (4) Coronary artery disease Qualifiers: Coronary Disease-Associated Artery/Lesion type: [place] artery Is this a current diagnosis for this admission?: Yes Plan: No angina currently. (5) Hypothyroidism (acquired) Is this a current diagnosis for this admission?: Yes Plan: We will continue Synthroid (6) Gastro-esophageal reflux disease with esophagitis Is this a current diagnosis for this admission?: Yes Plan: We will start him on lansoprazole
[2018-01-10] MEDS: INSULIN LISPRO 100 UNIT/ML 3 ML VIAL SUBCUT PRN ×2 (16:55→21:49)
[2018-01-10] MEDS: ATORVASTATIN CALCIUM 80 MG TABLET PO SCH (21:49)
--- NOTE | 2018-01-11 00:16 | EKG REPORT ---
SEVERITY:- OTHERWISE NORMAL ECG - SINUS RHYTHM LEFT AXIS DEVIATION : Confirmed by: Sari Crocker MD 11-Jan-2018 00:15:50
[2018-01-11] MEDS ORDERED: LEVOTHYROXINE SODIUM 0.075 MG TABLET PO SCH (06:00)
[2018-01-11] MEDS ORDERED: LANSOPRAZOLE 30 MG TAB.RAP.DR PO SCH (08:00)
--- NOTE | 2018-01-11 08:12 | PDOC TRANSFER SUMMARY ---
General - Admit/Disc Date/PCP Admission Date/Primary Care Provider: 01/08/18 13:55 CHERYL DILLARD PA-C Discharge Date: 01/11/18 - Discharge Diagnosis (1) Acute ischemic stroke Is this a current diagnosis for this admission?: Yes (2) Type 2 diabetes mellitus Is this a current diagnosis for this admission?: Yes (3) Hypertension Is this a current diagnosis for this admission?: Yes (4) Coronary artery disease Is this a current diagnosis for this admission?: Yes (5) Hypothyroidism (acquired) Is this a current diagnosis for this admission?: Yes (6) Gastro-esophageal reflux disease with esophagitis Is this a current diagnosis for this admission?: Yes - Additional Information Resuscitation Status: Full Code Home Medications: Dutasteride [Avodart] 0.5 mg PO DAILY 02/09/17 Insulin Glargine,Hum.rec.anlog [Lantus Insulin 100 Unit/mL] 30 unit SUBCUT BID 02/09/17 Levothyroxine Sodium [Synthroid] 75 mcg PO QAM 02/09/17 Omeprazole 40 mg PO DAILY 02/09/17 Oxycodone HCl 15 mg PO Q6HP PRN 02/09/17 Tamsulosin HCl [Flomax 0.4 mg Cap.sr] 0.8 mg PO QHS 02/09/17 Cholecalciferol (Vitamin D3) [Vitamin D3 2000 unit Tablet] 2,000 unit PO DAILYP PRN 09/05/17 Oxycodone Myristate [Xtampza ER] 36 mg PO Q12H 09/05/17 Doxycycline Hyclate 100 mg PO BID 01/08/18 Furosemide [Lasix 20 mg Tablet] 20 mg PO QAM 01/08/18 Metformin HCl [Glucophage 500 mg Tablet] 500 mg PO BID 01/08/18 Mycophenolate Mofetil [Cellcept] 500 mg PO BID 01/08/18 History of Present Illness Admission Date/PCP: 01/08/18 13:55 CHERYL DILLARD PA-C History of Present Illness: COLE THIBODEAUX is a 82 year old male patient with past medical history of type 2 diabetes mellitus, hypothyroidism, GERD, coronary artery disease, hypertension, hiatal hernia and osteoarthritis brought with chief complaint of altered mental status. Since patient is somewhat sleepy and somnolent is not source of history. History is obtained from ER attending note and from his significant other who is in the room during my encounter. His significant other states patient has been acting different than normal since yesterday morning. He looks at her as if "she is from different planet". She states yesterday morning he awakened and had some slurred speech and did not talk with her like normal. Is able to ambulate from his bed to a chair and is still able to stand and walk this morning, although he looks to be a little unsteady. Patient has not had previous stroke. Review of system and detailed histories unobtainable. Hospital Course Hospital Course: This is 82 years old male patient with multiple comorbidities he presented with chief complaint of altered mental status and slurred speech. CT scan of the brain is negative but his MRI revealed small focal ischemic infarct in the left parietal lobe. Patient has been managed with high intensity Lipitor 80 mg p.o. nightly and aspirin 81 mg p.o. daily. Patient does not have neurologic deficit. He is able to participate with physical therapy and patient will benefit from acute rehab placement. This morning I seen patient resting in bed comfortably he is not in pain or distress. His labs and vital signs are within normal limits. I will continue all his home medication and I will prescribe for him aspirin 81 mg p.o. daily and Lipitor 80 mg p.o. nightly. Physical Exam Vital Signs: Temp Pulse Resp BP Pulse Ox 97.6 F 70 16 163/58 H 97 01/11/18 03:17 01/11/18 04:00 01/11/18 04:00 01/11/18 04:00 01/11/18 04:00 Intake & Output 01/10/18 01/11/18 01/12/18 06:59 06:59 06:59 Intake Total 0 1450 Output Total 820 225 Balance -820 1225 Weight 75.9 kg 73.3 kg General appearance: PRESENT: no acute distress Head exam: PRESENT: atraumatic Eye exam: PRESENT: conjunctiva pink Mouth exam: PRESENT: moist Neck exam: ABSENT: carotid bruit, JVD, lymphadenopathy, thyromegaly Respiratory exam: PRESENT: clear to auscultation ester. ABSENT: rales, rhonchi, wheezes Cardiovascular exam: PRESENT: RRR. ABSENT: diastolic murmur, rubs, systolic murmur GI/Abdominal exam: PRESENT: normal bowel sounds, soft. ABSENT: distended, guarding, mass, organolmegaly, rebound, tenderness Extremities exam: PRESENT: full ROM. ABSENT: calf tenderness, clubbing, pedal edema Neurological exam: PRESENT: alert, awake, oriented to time, oriented to situation Results Laboratory Results: 01/09/18 05:15 01/09/18 05:15 Impressions: Head MRI 01/08/18 00:00 IMPRESSION: LIMITED STUDY DUE TO SIGNIFICANT MOTION ARTIFACT. THERE IS A SMALL FOCAL AREA OF RESTRICTED DIFFUSION IN THE LEFT PARIETAL LOBE CONSISTENT WITH ACUTE INFARCT. EVIDENCE OF ACUTE STROKE: YES. LEFT MCA Head CT 01/08/18 10:33 IMPRESSION: MINIMAL CHRONIC WHITE MATTER CHANGE. NO SIGNIFICANT ABNORMALITY SEEN. EVIDENCE OF ACUTE STROKE: NO. Chest X-Ray 01/08/18 10:34 IMPRESSION: No evidence of an acute cardiopulmonary process. Carotid Doppler Study 01/09/18 00:00 IMPRESSION: Right: Less than 50% stenosis ICA. Left: 50- 69% stenosis ICA. Qualifiers - * PATIENT BEING DISCHARGED WITH ANY OF THE FOLLOWING DIAGNOSIS: No
[2018-01-11] MEDS: ASPIRIN 81 MG TABLET, ENT COATED PO SCH (09:38)
[2018-01-11] MEDS: ENOXAPARIN SODIUM INJ 40 MG/0.4 ML DISP.SYRIN SUBCUT SCH (09:39)
[2018-01-11 12:30] VITALS: BP 152/65
[2018-01-11] MEDS: INSULIN LISPRO 100 UNIT/ML 3 ML VIAL SUBCUT PRN (12:47)
== END 2018-01-11 13:35 | DRG 66 ==
LOC: ER 09:50 → EH 13:55 → 3W 01-09 11:09
PROVIDERS: ADMIT Internal Medicine; ATTEND Internal Medicine
DX: I63.8 Other cerebral infarction (principal); E11.9 Type 2 diabetes mellitus without complications; K21.9 Gastro-esophageal reflux disease without esophagitis; I10 Essential (primary) hypertension; I25.10 Atherosclerotic heart disease of native coronary artery without angina pectoris; K44.9 Diaphragmatic hernia without obstruction or gangrene; M19.90 Unspecified osteoarthritis, unspecified site; E03.9 Hypothyroidism, unspecified; R47.81 Slurred speech; F32.9 Major depressive disorder, single episode, unspecified; Z87.891 Personal history of nicotine dependence; Z82.61 Family history of arthritis; Z79.4 Long term (current) use of insulin; Z79.899 Other long term (current) drug therapy; Z88.0 Allergy status to penicillin
CPT/HCPCS: 36415; 70450; 70551; 71045; 80053; 81001; 82550; 82962; 84484; 85025; 87040; 93005; 93010; 93306; 93880; 96360; 96361; 99285; G8978-GP; G8979-GP; G8987-GO; G8988-GO; G8996-GN; G8997-GN; J1650; J1815; J2270; J3490; J7030

== ENCOUNTER 2018-01-27 16:57 | Emergency (ER) | payer MEDICARE, OTHER ==
--- NOTE | 2018-01-27 17:21 | ER Document Report ---
ED Medical Screen (RME) - General Chief Complaint: Urinary Problem Stated Complaint: ABDOMINAL PAIN Time Seen by Provider: 01/27/18 17:19 Mode of Arrival: Medic Information source: Patient TRAVEL OUTSIDE OF THE [place] IN LAST 30 DAYS: No - HPI Patient complains to provider of: urinary retention/constipation Onset: Other - pt with severasl day h/o urinary retention and constipation -- from skilled nursing - Related Data Allergies/Adverse Reactions: Penicillins Allergy (Intermediate, Verified 01/08/18 17:15) rash Past Medical History - Past Medical History Cardiac Medical History: Reports: Hx Coronary Artery Disease, Hx Hypertension Pulmonary Medical History: Reports: Hx Asthma, Hx Pneumonia Neurological Medical History: Denies: Hx Cerebrovascular Accident Endocrine Medical History: Reports: Hx Diabetes Mellitus Type 2, Hx Hypothyroidism Renal/ Medical History: Reports: Hx Benign Prostatic Hyperplasia, Hx Kidney Stones. Denies: Hx Peritoneal Dialysis GI Medical History: Reports: Hx Gastroesophageal Reflux Disease, Hx Hiatal Hernia - ABDOMENAL HERNIA. Denies: Hx Hepatitis Musculoskeltal Medical History: Reports Hx Arthritis Psychiatric Medical History: Reports: Hx Depression Infectious Medical History: Denies: Hx Hepatitis Past Surgical History: Reports: Hx Abdominal Surgery - hernia repair, Other - Hernia correction. Denies: Hx Open Heart Surgery, Hx Pacemaker - Immunizations Hx Diphtheria, Pertussis, Tetanus Vaccination: No History of Influenza Vaccine for 03/2017 - 08/2017 Season: Unknown Physical Exam - Vital signs Vitals: Temp Pulse Resp BP Pulse Ox 98.6 F 107 H 22 H 128/59 H 99 01/27/18 17:09 01/27/18 17:09 01/27/18 17:09 01/27/18 17:09 01/27/18 17:09 Course - Vital Signs Vital signs: Temp Pulse Resp BP Pulse Ox 98.6 F 107 H 22 H 128/59 H 99 01/27/18 17:09 01/27/18 17:09 01/27/18 17:09 01/27/18 17:09 01/27/18 17:09 Doctor's Discharge - Discharge Referrals: RUDI PACE DO [Primary Care Provider] - Follow up as needed
--- NOTE | 2018-01-27 18:50 | ER Document Report ---
ED General - General Chief Complaint: Urinary Problem Stated Complaint: ABDOMINAL PAIN Time Seen by Provider: 01/27/18 17:19 Mode of Arrival: Medic Cannot obtain history due to: Dementia Notes: Patient is an 82-year-old male with a past medical history of dementia, prior CVA, who presents with assisted facility concerned that he has not had a bowel movement or urinated in approximately 3 days. The patient is demented, struggles to give adequate history. He does however deny any abdominal pain at the time of my assessment contrary to the initial triage note. He denies any vomiting. States that he is uncertain of the last time he has had a bowel movement or urinated. History is otherwise limited secondary to his underlying dementia. TRAVEL OUTSIDE OF THE [place] IN LAST 30 DAYS: No - Related Data Allergies/Adverse Reactions: No Known Allergies Allergy (Verified 01/27/18 17:21) Past Medical History - General Information source: Patient Cannot obtain history due to: Dementia - Social History Smoking Status: Former Smoker Frequency of alcohol use: None Drug Abuse: None Lives with: Long Term Family History: Reviewed & Not Pertinent Patient has suicidal ideation: No Patient has homicidal ideation: No - Past Medical History Cardiac Medical History: Reports: Hx Coronary Artery Disease, Hx Hypertension Pulmonary Medical History: Reports: Hx Asthma, Hx Pneumonia Neurological Medical History: Denies: Hx Cerebrovascular Accident Endocrine Medical History: Reports: Hx Diabetes Mellitus Type 2, Hx Hypothyroidism Renal/ Medical History: Reports: Hx Benign Prostatic Hyperplasia, Hx Kidney Stones. Denies: Hx Peritoneal Dialysis GI Medical History: Reports: Hx Gastroesophageal Reflux Disease, Hx Hiatal Hernia - ABDOMENAL HERNIA. Denies: Hx Hepatitis Musculoskeletal Medical History: Reports Hx Arthritis Psychiatric Medical History: Reports: Hx Depression Infectious Medical History: Denies: Hx Hepatitis Past Surgical History: Reports: Hx Abdominal Surgery - hernia repair, Other - Hernia correction. Denies: Hx Open Heart Surgery, Hx Pacemaker - Immunizations Hx Diphtheria, Pertussis, Tetanus Vaccination: No Review of Systems - Review of Systems Notes: Constitutional: Negative for fever. HENT: Negative for sore throat. Eyes: Negative for visual changes. Cardiovascular: Negative for chest pain. Respiratory: Negative for shortness of breath. Gastrointestinal: Negative for abdominal pain, positive for constipation Genitourinary: Positive for possible urinary retention versus oliguria Musculoskeletal: Negative for back pain. Skin: Negative for rash. Neurological: Negative for headaches, weakness or numbness. 10 point ROS negative except as marked above and in HPI. Physical Exam - Vital signs Vitals: Temp Pulse Resp BP Pulse Ox 98.6 F 107 H 22 H 128/59 H 99 01/27/18 17:09 01/27/18 17:09 01/27/18 17:09 01/27/18 17:09 01/27/18 17:09 Notes: PHYSICAL EXAMINATION: GENERAL: Well-appearing elderly man in no distress HEAD: Atraumatic, normocephalic. EYES: Pupils equal round and reactive to light, extraocular movements intact, sclera anicteric, conjunctiva are normal. ENT: nares patent, oropharynx clear without exudates. Moderately dry mucous membranes. NECK: Normal range of motion, supple without lymphadenopathy LUNGS: Breath sounds clear to auscultation bilaterally and equal. No wheezes rales or rhonchi. HEART: Regular rate and rhythm without murmurs ABDOMEN: Soft, nontender, normoactive bowel sounds. No guarding, no rebound. No masses appreciated. EXTREMITIES: Normal range of motion, no pitting or edema. No cyanosis. NEUROLOGICAL: No focal neurological deficits. Moves all extremities spontaneously and on command. PSYCH: Alert, oriented to person and place SKIN: Warm, Dry, normal turgor, no rashes or lesions noted. Course - Re-evaluation Re-evalutation: 01/27/18 18:49 Patient presents with apparent urinary and stool retention for the past 3 days per EMS report from the assisted although the patient states that has been less than [address], this would be a very concerning duration for urinary retention. A Scott catheter was placed and 400 cc of myra colored urine was expressed suggesting either that the patient has been incontinent in the interim or has made very minimal urine. He denies any vomiting, abdomen soft, nondistended, bowel sounds throughout. He is quite demented making any additional history taking difficult. Awaiting laboratories, urinalysis testing , and a 3 view of the abdomen. She is otherwise quite well in appearance, vitals within normal limits at the time of my assessment. 01/27/18 20:23 Laboratories are otherwise unremarkable and do not show any signs that would be consistent with persistent urinary retention or severe dehydration resulting in oliguria. His urine is minimally concentrated he has no evidence of prerenal or postrenal azotemia. I suspect that the patient has been incontinent in the assisted has not noted that he has been urinating. His x-ray does show significant constipation and he has been started on lactulose. The patient denies any vomiting and his x-ray as well as exam are not consistent with an acute bowel obstruction. The Scott catheter will be removed as the patient does not have signs of urinary retention either in the volume that was obtained nor in his laboratories. Will start the patient on MiraLAX 2 capfuls daily and recommend outpatient follow-up. At this time will discharge with return precautions and follow-up recommendations. Verbal discharge instructions given a the bedside and opportunity for questions given. Medication warnings reviewed. Patient is in agreement with this plan and has verbalized understanding of return precautions and the need for primary care follow-up in the next 24-72 hours. - Vital Signs Vital signs: Temp Pulse Resp BP Pulse Ox 99.1 F 100 16 131/64 H 99 01/27/18 21:02 01/27/18 21:02 01/27/18 21:02 01/27/18 21:02 01/27/18 21:02 - Laboratory Result Diagrams: 01/27/18 19:10 01/27/18 19:10 Laboratory results interpreted by me: 01/27/18 01/27/18 01/27/18 18:40 19:10 19:10 Hgb 13.3 L RDW 18.0 H Seg Neutrophils % 85.8 H Lymphocytes % 8.4 L Absolute Neutrophils 8.6 H Glucose 148 H Direct Bilirubin 0.5 H AST 13 L ALT 19 L Albumin 3.3 L Ur Leukocyte Esterase TRACE H - Diagnostic Test Radiology reviewed: Image reviewed, Reports reviewed Radiology results interpreted by me: 01/27/18 20:25 Abdominal 3 view x-ray: Constipation without evidence of obstruction Discharge - Discharge Clinical Impression: Decreased urination Constipation Qualifiers: Constipation type: unspecified constipation type Qualified Code(s): K59.00 - Constipation, unspecified Dementia Qualifiers: Dementia type: unspecified type Dementia behavioral disturbance: without behavioral disturbance Qualified Code(s): F03.90 - Unspecified dementia without behavioral disturbance Condition: Stable Disposition: HOME-SNF (ED ONLY) Additional Instructions: Please begin taking 1 capful of MiraLAX in the morning and at night. Your labs , urinary output and history are not consistent with actual urinary retention. Please return if you develop vomiting, worsening discomfort, fever greater than 100.4F, or any other symptoms that are worrisome to you. Prescriptions: Polyethylene Glycol 3350 [Miralax] 1 cap PO BID #527 powder Referrals: RUDI PACE, DO [Primary Care Provider] - Follow up as needed
--- NOTE | 2018-01-27 18:54 | RADIOLOGY REPORT (SQ) ---
EXAM DESCRIPTION: ACUTE ABDOMEN SERIES COMPLETED DATE/TIME: 01/27/2018 6:41 pm REASON FOR STUDY: CONSTIPATION COMPARISON: 09/15/2017 NUMBER OF VIEWS: Three views. TECHNIQUE: Frontal chest, supine abdomen and upright/decubitus abdomen radiographic images acquired. LIMITATIONS: None. FINDINGS: CHEST: Lungs clear of infiltrates. FREE AIR: None. No abnormal gas collections. BOWEL GAS PATTERN: Nonobstructive pattern. No dilated loops or air fluid levels. CONSTIPATION: mild. CALCIFICATIONS: No suspicious calcifications. HARDWARE: None in the abdomen. SOFT TISSUES: No gross mass or suggestion of organomegaly. BONES: No acute fracture. No worrisome bone lesions. OTHER: No other significant finding. IMPRESSION: NO RADIOGRAPHIC EVIDENCE FOR ACUTE ABDOMINAL DISEASE. CONSTIPATION. TECHNICAL DOCUMENTATION: JOB ID: [id number] [employer]- All Rights Reserved Reading location - IP/workstation name: [email or web address]
[2018-01-27 19:27] LABS: ABSOLUTE LYMPHOCYTES (AUTO) 0.8 10^3/uL (0.5-4.7); ABSOLUTE MONOCYTES (AUTO) 0.5 10^3/uL (0.1-1.4); ABSOLUTE NEUT (AUTO) 8.6 10^3/uL (1.7-8.2); BASOPHILS % (AUTO) 0.2 % (0-2); EOSINOPHILS % (AUTO) 0.3 % (0-6); HEMOGLOBIN 13.3 g/dL (13.5-17.0); LYMPHOCYTES % (AUTO) 8.4 % (13-45); MEAN CORPUSCULAR HEMOGLOBIN 29.1 pg (27.0-33.4); MEAN CORPUSCULAR HGB CONC 33.3 g/dL (32.0-36.0); MEAN CORPUSCULAR VOLUME 88 fl (80-97); MONOCYTES % (AUTO) 5.3 % (3-13); PLATELET COUNT 269 10^3/uL (150-450); RED BLOOD COUNT 4.57 10^6/uL (4.35-5.55); SEGMENTED NEUTROPHILS % (AUTO) 85.8 % (42-78); TOTAL CELLS COUNTED % (AUTO) 100 %
[2018-01-27] MEDS ORDERED: LACTULOSE SYRUP 20 GM/30 ML UDCUP PO ONE (19:39)
[2018-01-27 19:40] LABS: ALANINE AMINOTRANSFERASE 19 U/L (21-72); ALBUMIN 3.3 g/dL (3.5-5.0); ALKALINE PHOSPHATASE 74 U/L (38-126); ANION GAP 11 (5-19); ASPARTATE AMINO TRANSFERASE 13 U/L (17-59); BILIRUBIN,DIRECT 0.5 mg/dL (0.0-0.4); BILIRUBIN,TOTAL 0.7 mg/dL (0.2-1.3); BLOOD UREA NITROGEN 13 mg/dL (7-20); CALCIUM 9.1 mg/dL (8.4-10.2); CARBON DIOXIDE 28 mmol/L (22-30); CHLORIDE 100 mmol/L (98-107); GLUCOSE 148 mg/dL (75-110); POTASSIUM 4.2 mmol/L (3.6-5.0); SODIUM 139.1 mmol/L (137-145); TOTAL PROTEIN 6.7 g/dL (6.3-8.2)
[2018-01-27 19:43] LABS: APPEARANCE,URINE CLEAR; BILIRUBIN,URINE NEGATIVE (NEGATIVE); COLOR,URINE YELLOW; GLUCOSE, URINE NEGATIVE (NEGATIVE); KETONES,URINE NEGATIVE (NEGATIVE); LEUKOCYTE ESTERASE,URINE TRACE (NEGATIVE); NITRITE,URINE NEGATIVE (NEGATIVE); PROTEIN,URINE NEGATIVE (NEGATIVE); URINE SPECIFIC GRAVITY 1.015; UROBILINOGEN,URINE NEGATIVE mg/dL (<2.0)
[2018-01-27 21:04] VITALS: BP 131/64
== END 2018-01-27 21:15 ==
LOC: ER 16:57
DX: K59.00 Constipation, unspecified (principal); R39.9 Unspecified symptoms and signs involving the genitourinary system; F03.90 Unspecified dementia, unspecified severity, without behavioral disturbance, psychotic disturbance, mood disturbance, and anxiety; I25.10 Atherosclerotic heart disease of native coronary artery without angina pectoris; I10 Essential (primary) hypertension; E11.9 Type 2 diabetes mellitus without complications; Z87.891 Personal history of nicotine dependence
CPT/HCPCS: 99284; 51702; 36415; 85025; 80053; 81001; 74022; A9270

== ENCOUNTER 2018-10-18 07:59 | Day surgery (SDC) | payer MEDICARE, OTHER ==
[2018-10-18] MEDS ORDERED: DIPHENHYDRAMINE HCL 50 MG/ML VIAL ONE (08:10)
[2018-10-18] MEDS ORDERED: ONDANSETRON HCL INJ/PF 4 MG/2 ML SDV ONE (08:10)
[2018-10-18] MEDS ORDERED: FENTANYL CITRATE INJ/PF 100 MCG/2 ML AMPUL ONE (08:10)
[2018-10-18] MEDS ORDERED: MIDAZOLAM 2 MG/2 ML INJ ONE (08:11)
[2018-10-18] MEDS ORDERED: NALOXONE HCL INJ/PF 0.4 MG/1 ML SDV ONE (08:11)
[2018-10-18] MEDS ORDERED: GLUCAGON,HUMAN RECOMB 1 MG INJ ONE (08:11)
[2018-10-18] MEDS ORDERED: EPINEPHRINE INJ 1 MG/10 ML DISP.SYRIN ONE (08:11)
[2018-10-18] MEDS ORDERED: FLUMAZENIL INJ 0.5 MG/5 ML VIAL ONE (08:11)
--- NOTE | 2018-10-18 08:42 | Operative Report ---
Operative Report DATE OF SURGERY: 10/18/18 Operative Report: The risks benefits and alternatives of the procedure explained to the patient in detail and informed consent is obtained.A GIF Olympus video scope was inserted into the patient's mouth and hypopharynx, the esophagus is identified intubated and insufflated, the scope was then advanced through the esophagus stomach and duodenum, retroflexion maneuver is done, the esophagus stomach and first and second portions of the duodenum examined. PREOPERATIVE DIAGNOSIS: Dysphagia, weight loss POSTOPERATIVE DIAGNOSIS: Esophageal ulceration. Previous surgery noted. Significant gastritis status post biopsy rule out Helicobacter pylori OPERATION: EGD with biopsy SURGEON: FAWAD MORALEZ ANESTHESIA: Moderate Sedation TISSUE REMOVED OR ALTERED: As noted above COMPLICATIONS: None. ESTIMATED BLOOD LOSS: None. INTRAOPERATIVE FINDINGS: As noted above. PROCEDURE: Patient tolerated the procedure well. No immediate postprocedure complications are noted. Patient is discharged in good condition. Discharge date 10/18/2018. Discharge diet: Regular. Discharge activity: Regular. 2 to 3-week follow-up to discuss findings. Patient is instructed to call the office or proceed to the emergency room should there be any further problems or questions. Wait on the pathology.
[2018-10-18 09:40] VITALS: BP 110/60
== END 2018-10-18 09:45 | disposition home or self-care (01) ==
LOC: END 07:59
PROVIDERS: ATTEND Internal Medicine Gastroenterology
DX: K29.70 Gastritis, unspecified, without bleeding (principal); K22.10 Ulcer of esophagus without bleeding; K21.9 Gastro-esophageal reflux disease without esophagitis; E11.9 Type 2 diabetes mellitus without complications; E78.5 Hyperlipidemia, unspecified; Z79.899 Other long term (current) drug therapy; Z79.4 Long term (current) use of insulin; R63.4 Abnormal weight loss; Z68.24 Body mass index [BMI] 24.0-24.9, adult; Z88.0 Allergy status to penicillin; J43.9 Emphysema, unspecified; Z79.84 Long term (current) use of oral hypoglycemic drugs
CPT/HCPCS: 43239; 82962; 88342 ×2; 88305 ×2; J2250; J0171; J1200; J1610; J2310; J2405; J3010; J3490

== ENCOUNTER 2019-03-26 13:04 | Inpatient (IN) | payer MEDICARE, OTHER ==
--- NOTE | 2019-03-26 14:55 | ER Document Report ---
ED Medical Screen (RME) - General Chief Complaint: Decreased Appetite Stated Complaint: LOSS OF APPETITE Time Seen by Provider: 03/26/19 14:53 Primary Care Provider: CHERYL DILLARD PA-C [Primary Care Provider] - Follow up as needed Mode of Arrival: Wheelchair Information source: Patient Notes: 83-year-old male presented to ED for complaint of burning when he tries to swallow burning when he tries to eat burning when he tries to urinate and weakness. He states he has been hurting all over for couple months but he is getting weaker and weaker every day. He states he cannot eat drink or urinate due to the pain. He states he is having a hard time getting up and moving around or eating due to the pain. Patient is alert oriented and answering questions. He states he does not smoke drink or do any drugs. I have greeted and performed a rapid initial assessment of this patient. A comprehensive ED assessment and evaluation of the patient, analysis of test results and completion of medical decision making process will be conducted by an additional ED providers. TRAVEL OUTSIDE OF THE [place] IN LAST 30 DAYS: No - Related Data Allergies/Adverse Reactions: Penicillins Allergy (Unknown, Verified 10/18/18 08:08) Past Medical History - Past Medical History Cardiac Medical History: Reports: Hx Coronary Artery Disease, Hx Hypertension Denies: Hx Heart Attack Pulmonary Medical History: Reports: Hx Asthma, Hx Pneumonia Denies: Hx Bronchitis, Hx COPD Neurological Medical History: Reports: Hx Cerebrovascular Accident - SPEECH EFFECTED. Denies: Hx Seizures Endocrine Medical History: Reports: Hx Diabetes Mellitus Type 2, Hx Hypothyroidism Renal/ Medical History: Reports: Hx Benign Prostatic Hyperplasia, Hx Kidney St ones. Denies: Hx Peritoneal Dialysis GI Medical History: Reports: Hx Gastroesophageal Reflux Disease, Hx Hiatal Hernia - ABDOMENAL HERNIA. Denies: Hx Hepatitis Musculoskeltal Medical History: Reports Hx Arthritis Psychiatric Medical History: Reports: Hx Depression Infectious Medical History: Denies: Hx Hepatitis Past Surgical History: Reports: Hx Abdominal Surgery - hernia repair, Other - Hernia correction. Denies: Hx Open Heart Surgery, Hx Pacemaker - Immunizations Hx Diphtheria, Pertussis, Tetanus Vaccination: No Physical Exam - Vital signs Vitals: Temp Pulse Resp BP Pulse Ox 98.2 F 104 H 18 125/81 97 03/26/19 13:54 03/26/19 13:54 03/26/19 13:54 03/26/19 13:54 03/26/19 13:54 Course - Vital Signs Vital signs: Temp Pulse Resp BP Pulse Ox 98.2 F 104 H 18 125/81 97 03/26/19 13:54 03/26/19 13:54 03/26/19 13:54 03/26/19 13:54 03/26/19 13:54 Doctor's Discharge - Discharge Referrals: CHERYL DILLARD PA-C [Primary Care Provider] - Follow up as needed
[2019-03-26] MEDS ORDERED: ONDANSETRON 4 MG TAB.RAPDIS PO ONE (15:29)
[2019-03-26 15:52] LABS: ABSOLUTE BASOPHILS # (AUTO) 0.1 10^3/uL (0.0-0.2); ABSOLUTE EOSINOPHILS # (AUTO) 0.1 10^3/uL (0.0-0.6); ABSOLUTE LYMPHOCYTES (AUTO) 1.9 10^3/uL (0.5-4.7); ABSOLUTE MONOCYTES (AUTO) 1.1 10^3/uL (0.1-1.4); ABSOLUTE NEUT (AUTO) 15.4 10^3/uL (1.7-8.2); BASOPHILS % (AUTO) 0.3 % (0-2); EOSINOPHILS % (AUTO) 0.4 % (0-6); HEMATOCRIT 47.6 % (37.9-51.0); HEMOGLOBIN 15.5 g/dL (13.5-17.0); LYMPHOCYTES % (AUTO) 10.5 % (13-45); MEAN CORPUSCULAR HGB CONC 32.5 g/dL (32.0-36.0); MEAN CORPUSCULAR VOLUME 86 fl (80-97); MONOCYTES % (AUTO) 6.1 % (3-13); PLATELET COUNT 440 10^3/uL (150-450); RED BLOOD COUNT 5.53 10^6/uL (4.35-5.55); RED CELL DISTRIBUTION WIDTH 16.8 % (11.5-14.0); SEGMENTED NEUTROPHILS % (AUTO) 82.7 % (42-78); TOTAL CELLS COUNTED % (AUTO) 100 %; WHITE BLOOD COUNT 18.6 10^3/uL (4.0-10.5)
[2019-03-26 16:25] LABS: ALBUMIN 4.5 g/dL (3.5-5.0); ALKALINE PHOSPHATASE 89 U/L (38-126); ANION GAP 14 (5-19); ASPARTATE AMINO TRANSFERASE 13 U/L (17-59); BILIRUBIN,DIRECT 0.2 mg/dL (0.0-0.4); BILIRUBIN,TOTAL 0.6 mg/dL (0.2-1.3); BLOOD UREA NITROGEN 18 mg/dL (7-20); CALCIUM 10.5 mg/dL (8.4-10.2); CARBON DIOXIDE 27 mmol/L (22-30); CHLORIDE 95 mmol/L (98-107); CREATINE KINASE 27 U/L (55-170); GLUCOSE 234 mg/dL (75-110); POTASSIUM 4.8 mmol/L (3.6-5.0); TOTAL PROTEIN 8.3 g/dL (6.3-8.2)
[2019-03-26 16:38] LABS: CREATINE KINASE MB 1.42 ng/mL (<4.55); TROPONIN I 0.021 ng/mL
--- NOTE | 2019-03-26 18:15 | EKG REPORT ---
SEVERITY:- OTHERWISE NORMAL ECG - SINUS RHYTHM LEFT AXIS DEVIATION : Confirmed by: Mohan Torres MD 26-Mar-2019 18:06:58
--- NOTE | 2019-03-26 18:15 | RADIOLOGY REPORT (SQ) ---
EXAM DESCRIPTION: CHEST 2 VIEWS COMPLETED DATE/TIME: 03/26/2019 4:07 pm REASON FOR STUDY: everything hurts COMPARISON: 03/17/2016 EXAM PARAMETERS: NUMBER OF VIEWS: two views TECHNIQUE: Digital Frontal and Lateral radiographic views of the chest acquired. RADIATION DOSE: NA LIMITATIONS: none FINDINGS: LUNGS AND PLEURA: Elevated left hemidiaphragm. No infiltrate, effusion, or mass. MEDIASTINUM AND HILAR STRUCTURES: No masses or contour abnormalities. HEART AND VASCULAR STRUCTURES: Heart normal size. No evidence for failure. BONES: No acute findings. HARDWARE: None in the chest. OTHER: No other significant finding. IMPRESSION: NO ACUTE RADIOGRAPHIC FINDING IN THE CHEST. TECHNICAL DOCUMENTATION: JOB ID: [id number] [employer]- All Rights Reserved Reading location - IP/workstation name: [email or web address]
[2019-03-26] MEDS ORDERED: ONDANSETRON HCL INJ/PF 4 MG/2 ML SDV IV ONE (20:07)
--- NOTE | 2019-03-26 20:19 | ER Document Report ---
ED Dizziness/Weakness - General Chief Complaint: General Weakness Stated Complaint: LOSS OF APPETITE Time Seen by Provider: 03/26/19 20:19 Mode of Arrival: Wheelchair Information source: Patient, Friend Cannot obtain history due to: Dementia Notes: HISTORY OF PRESENT ILLNESS: Patient is an 83-year-old male with a past medical history of coronary artery disease, hypertension, and hyperlipidemia dementia, who presents with weakness and report of syncope prior to arrival and over the past few days according to both the patient and his significant other at bedside. Patient denies chest pain and reports that he feels weak and has felt weak since a gastric biopsy a pproximately 5 months ago, has been unable to keep down food other than liquids according his report. 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 Denies fever or chills, no sweats. Denies recent illness. EENT: Denies eye, ear, throat, or mouth pain or symptoms. Denies nasal or sinus congestion. CARDIOVASCULAR: Denies chest pain. Denies swelling of the legs. RESPIRATORY: Denies cough, cold, or chest congestion. Denies shortness of breath or difficulty breathing. Denies wheezing. GASTROINTESTINAL: Positive for abdominal pain. Denies nausea, vomiting, or diarrhea. Denies constipation. GENITOURINARY: Denies difficulty urinating, painful urination, burning, frequency, or blood in urine. MUSCULOSKELETAL: Denies neck or back pain or joint pain or swelling. SKIN: Denies rash or skin lesions. HEMATOLOGIC : Denies easy bruising or bleeding. LYMPHATIC: Denies swollen, enlarged glands. NEUROLOGICAL: Positive for syncope. Denies altered mental status or loss of consciousness. Denies headache. Denies weakness or paralysis or loss of use of either side. Denies problems with gait or speech. Denies sensory or motor loss. PSYCHIATRIC: Denies anxiety or stress or depression. All other systems reviewed and negative. PHYSICAL EXAMINATION: GENERAL: Frail-appearing, well-nourished and in no acute distress. HEAD: Atraumatic, normocephalic. No scalp deformity, depression, or crepitance. EYES: Pupils are 3 mm and equal/round/reactive to light, extraocular movements intact, sclera anicteric, conjunctiva are normal. ENT: Nares patent bilaterally, oropharynx. Moist mucous membranes. No tonsil hypertrophy. NECK: Normal range of motion, supple without lymphadenopathy. LUNGS: Breath sounds present, equal, and clear to auscultation bilaterally. No wheezes, rales, or rhonchi. HEART: Regular rate and rhythm without murmurs, rubs, or gallops. 2+ peripheral pulses. Normal capillary refill. ABDOMEN: Soft, mild epigastric tenderness, nondistended. Normoactive bowel sounds. No guarding, no rebound. No masses appreciated. BACK: Normal contour, no midline tenderness. Rectal exam deferred. GENITAL/PELVIC: Deferred. EXTREMITIES: Normal range of motion, no pitting or edema. No cyanosis. NEUROLOGICAL: No focal neurological deficits. Moves all extremities spontaneously and on command. PSYCH: Normal mood, normal affect. No suicidal thoughts/ideations. No homicidal thoughts/ideations. No hallucinations. SKIN: Warm, dry, normal turgor, no rashes or lesions noted. ASSESSMENT AND PLAN: This patient is a 83-year-old female who presents with weakness and syncope in the setting of gastric biopsy 5 months ago with decreased oral intake. 1. Will obtain labs, urine, cardiac enzymes, CT scan of the abdomen/pelvis, and reassess. 2. Will give IV morphine for pain control. TRAVEL OUTSIDE OF THE [place] IN LAST 30 DAYS: No - HPI Patient complains to provider of: Syncope, Weakness Onset: Last week Onset/Duration: Sudden Quality of pain: No pain Severity: Moderate Pain Level: Denies Associated symptoms: Dizzy, Fainted Baseline gait: Walks w/o assistance - Related Data Allergies/Adverse Reactions: Penicillins Allergy (Unknown, Verified 10/18/18 08:08) Past Medical History - General Information source: Patient, Friend - Social History Smoking Status: Former Smoker Chew tobacco use (# tins/day): No Frequency of alcohol use: None Drug Abuse: None Lives with: Snf Family History: Reviewed & Not Pertinent Patient has suicidal ideation: No Patient has homicidal ideation: No - Past Medical History Cardiac Medical History: Reports: Hx Coronary Artery Disease, Hx Hypertension Denies: Hx Heart Attack Pulmonary Medical History: Reports: Hx Asthma, Hx Pneumonia Denies: Hx Bronchitis, Hx COPD EENT Medical History: Reports: None Neurological Medical History: Reports: Hx Cerebrovascular Accident - SPEECH EFFECTED. Denies: Hx Seizures Endocrine Medical History: Reports: Hx Diabetes Mellitus Type 2, Hx Hypothyroidism Renal/ Medical History: Reports: Hx Benign Prostatic Hyperplasia, Hx Kidney Stones. Denies: Hx Peritoneal Dialysis Malignancy Medical History: Reports None GI Medical History: Reports: Hx Gastroesophageal Reflux Disease, Hx Hiatal Hernia - ABDOMENAL HERNIA. Denies: Hx Hepatitis Musculoskeletal Medical History: Reports Hx Arthritis Skin Medical History: Reports None Psychiatric Medical History: Reports: Hx Depression Traumatic Medical History: Reports: None Infectious Medical History: Reports: None. Denies: Hx Hepatitis Past Surgical History: Reports: Hx Abdominal Surgery - hernia repair, Other - Hernia correction. Denies: Hx Open Heart Surgery, Hx Pacemaker - Immunizations Hx Diphtheria, Pertussis, Tetanus Vaccination: No Review of Systems - Review of Systems Constitutional: See HPI, Weakness EENT: No symptoms reported Cardiovascular: See HPI, Syncope Respiratory: No symptoms reported Gastrointestinal: No symptoms reported Genitourinary: No symptoms reported Male Genitourinary: No symptoms reported Musculoskeletal: No symptoms reported Skin: No symptoms reported Hematologic/Lymphatic: No symptoms reported Neurological/Psychological: No symptoms reported -: Yes All other systems reviewed and negative Physical Exam - Vital signs Vitals: Temp Pulse Resp BP Pulse Ox 98.2 F 104 H 18 125/81 97 03/26/19 13:54 03/26/19 13:54 03/26/19 13:54 03/26/19 13:54 03/26/19 13:54 Interpretation: Normal Course - Re-evaluation Re-evalutation: 03/27/19 03:03 Initial work-up is negative other than mildly elevated white count. However, patient kept having intermittent runs of narrow complex tachycardia that was associated with paroxysmal ventricular bigeminy or trigeminy that converts back to sinus rhythm. Repeated troponin is trending up, however still below the acute MS threshold. Per cardiology, patient was given IV metoprolol 5 mg. Patient is admitted to the hospital. - Vital Signs Vital signs: Temp Pulse Resp BP Pulse Ox 98.2 F 91 19 139/56 H 99 03/26/19 13:54 03/26/19 19:47 03/27/19 04:06 03/27/19 04:06 03/27/19 04:06 - Laboratory Result Diagrams: 03/27/19 01:06 03/27/19 01:06 Laboratory results interpreted by me: 03/26/19 03/26/19 03/27/19 15:27 15:27 01:06 WBC 18.6 H 14.8 H RDW 16.8 H 16.4 H Lymph % (Auto) 10.5 L 10.3 L Absolute Neuts (auto) 15.4 H 12.4 H Seg Neutrophils % 82.7 H 83.9 H Sodium 136.4 L Chloride 95 L Glucose 234 H Calcium 10.5 H AST 13 L Creatine Kinase 27 L Total Protein 8.3 H 03/27/19 01:06 WBC RDW Lymph % (Auto) Absolute Neuts (auto) Seg Neutrophils % Sodium 135.9 L Chloride Glucose 222 H Calcium AST 11 L Creatine Kinase 27 L Total Protein - Diagnostic Test Radiology reviewed: Image reviewed, Reports reviewed - EKG Interpretation by Me EKG shows normal: Sinus rhythm Rate: Normal Rhythm: NSR Aspers/QRS: No: Right axis deviation, Left axis deviation, RBBB, LBBB, IVCD, LAHB/LAFB, LPHB/LPFB, Bifasicular block Voltage: No: Increased voltage, Consistant with LVH, Decreased voltage, Throughout, Limb leads P Waves: No: ROSSANA, LAE, Absent, AV Dissociation, Other Heart block present: No: 1st Degree, Mobitz 1, Mobitz 2, CHB (3rd degree block) When compared to previous EKG there are: No significant change - Consults Dr. Boyle Time consulted: 03:02 - will admit Consulted provider: will come to ER Dr. Sarmiento Time consulted: 02:30 - give IV Metoprolol and admit Discharge - Discharge Clinical Impression: Ventricular trigeminy Syncope Qualifiers: Syncope type: unspecified Qualified Code(s): R55 - Syncope and collapse Condition: Stable Disposition: ADMITTED INPATIENT Admitting Provider: Tamar (Hospitalist) Unit Admitted: Telemetry
[2019-03-26] MEDS ORDERED: MAG HYDROX/AL HYDROX/SIMETH SUSP 30 ML UDCUP PO ONE (20:58)
[2019-03-26] MEDS ORDERED: MORPHINE SULFATE 10 MG/ML INJ IV ONE (20:59)
[2019-03-26] MEDS ORDERED: LIDOCAINE 2% VISCOUS SOLN 20 ML UDCUP PO ONE (21:13)
[2019-03-26] MEDS ORDERED: METOCLOPRAMIDE HCL ORAL SOLN 10 MG/10 ML UDCUP PO ONE (21:13)
--- NOTE | 2019-03-26 23:25 | RADIOLOGY REPORT (SQ) ---
CT ABDOMEN PELVIS WITH IV CONTRAST EXAM DATE: 03/26/2019 8:58 PM CDT HISTORY: Abdominal pain. COMPARISON: 02/09/2017 TECHNIQUE: CT scan of the abdomen and pelvis was performed with IV contrast. This exam was performed according to our departmental dose-optimization program, which includes automated exposure control, adjustment of the mA and/or kV according to patient size and/or use of iterative reconstruction technique. FINDINGS: Scattered atelectasis and scarring at the lung bases. No pleural or pericardial effusions. Small hiatal hernia. Liver, gallbladder, and, pancreas, adrenal glands, and kidneys are unremarkable without hydronephrosis. Pelvic organs are also unremarkable. Large amount stool in the rectum suggesting constipation. Mild wall thickening of the descending and sigmoid colon. The appendix is normal. No intraperitoneal free fluid or free air is seen. The aorta is diffusely atherosclerotic. No acute bony findings are seen. No body wall hernia. IMPRESSION: Mild wall thickening of the distal colon which may represent mild inflammation.
[2019-03-27] MEDS ORDERED: NORMAL SALINE 1000 ML 1,000 ML IV ONE (00:07)
[2019-03-27 01:18] LABS: ABSOLUTE BASOPHILS # (AUTO) 0.1 10^3/uL (0.0-0.2); ABSOLUTE LYMPHOCYTES (AUTO) 1.5 10^3/uL (0.5-4.7); ABSOLUTE MONOCYTES (AUTO) 0.8 10^3/uL (0.1-1.4); ABSOLUTE NEUT (AUTO) 12.4 10^3/uL (1.7-8.2); BASOPHILS % (AUTO) 0.3 % (0-2); EOSINOPHILS % (AUTO) 0.1 % (0-6); HEMATOCRIT 41.5 % (37.9-51.0); HEMOGLOBIN 13.5 g/dL (13.5-17.0); LYMPHOCYTES % (AUTO) 10.3 % (13-45); MEAN CORPUSCULAR HGB CONC 32.4 g/dL (32.0-36.0); MEAN CORPUSCULAR VOLUME 86 fl (80-97); MONOCYTES % (AUTO) 5.4 % (3-13); PLATELET COUNT 299 10^3/uL (150-450); RED CELL DISTRIBUTION WIDTH 16.4 % (11.5-14.0); SEGMENTED NEUTROPHILS % (AUTO) 83.9 % (42-78); TOTAL CELLS COUNTED % (AUTO) 100 %; WHITE BLOOD COUNT 14.8 10^3/uL (4.0-10.5)
[2019-03-27 01:39] LABS: ALBUMIN 3.7 g/dL (3.5-5.0); ALKALINE PHOSPHATASE 75 U/L (38-126); ANION GAP 10 (5-19); ASPARTATE AMINO TRANSFERASE 11 U/L (17-59); BILIRUBIN,DIRECT 0.1 mg/dL (0.0-0.4); BILIRUBIN,TOTAL 0.5 mg/dL (0.2-1.3); BLOOD UREA NITROGEN 19 mg/dL (7-20); CALCIUM 9.2 mg/dL (8.4-10.2); CARBON DIOXIDE 27 mmol/L (22-30); CHLORIDE 99 mmol/L (98-107); CREATINE KINASE 27 U/L (55-170); GLUCOSE 222 mg/dL (75-110); POTASSIUM 4.8 mmol/L (3.6-5.0); TOTAL PROTEIN 6.9 g/dL (6.3-8.2)
[2019-03-27 01:52] LABS: CREATINE KINASE MB 1.41 ng/mL (<4.55); TROPONIN I 0.029 ng/mL
[2019-03-27] MEDS ORDERED: MORPHINE SULFATE 10 MG/ML INJ IV ONE (02:17)
[2019-03-27] MEDS ORDERED: METOPROLOL TARTRATE PF/INJ 5 MG/5 ML SDV IV ONE (02:17)
[2019-03-27] MEDS ORDERED: MAGNESIUM HYDROXIDE SUSP 30 ML UDCUP PO PRN (03:32)
[2019-03-27] MEDS ORDERED: MAG HYDROX/AL HYDROX/SIMETH SUSP 30 ML UDCUP PO PRN (03:32)
[2019-03-27] MEDS ORDERED: GLUCAGON,HUMAN RECOMB 1 MG INJ IM PRN (03:39)
[2019-03-27] MEDS ORDERED: ACETAMINOPHEN 325 MG TABLET PO PRN (03:39)
[2019-03-27] MEDS ORDERED: DEXTROSE 50%-WATER 25 GM/50 ML DISP.SYRIN IV PRN ×2 (03:39)
[2019-03-27] MEDS ORDERED: DEXTROSE 40% GEL 15 GM TUBE PO PRN ×2 (03:39)
[2019-03-27] MEDS ORDERED: NALBUPHINE HCL INJ 10 MG/1 ML AMPULE IV PRN ×3 (03:39→04:04)
[2019-03-27] MEDS ORDERED: LORAZEPAM INJ 2 MG/1 ML VIAL IV PRN (03:41)
[2019-03-27] MEDS ORDERED: HALOPERIDOL LACTATE INJ 5 MG/1 ML VIAL IV PRN (03:41)
[2019-03-27] MEDS: HEPARIN SOD (PORCINE) 5,000 UNIT/ML 1 ML VIAL SUBCUT SCH ×3 (06:21→21:50)
--- NOTE | 2019-03-27 06:36 | PDOC H&P ---
History of Present Illness Admission Date/PCP: 03/27/2019 02:59 CHERYL DILLARD PA-C Patient complains of: Generalized weakness History of Present Illness: COLE THIBODEAUX is a 83 year old male who presents to the ER from a local skilled nursing with a 4-day history of generalized weakness. The patient has dementia, and thus is not reliable for historical input, but is accompanied by his significant other who relates that skilled nursing staff called her to inform her that the patient has been experiencing progressive generalized weakness for the last 4 days. The generalized weakness has been accompanied by several episodes of syncope with collapse and a decrease in oral intake. She admits that he has prior similar episodes with urinary tract infections in the past. She also admits that he has a long history of syncopal episodes, but she is uncertain of the etiology. She is unaware of any additional accompanying or associated signs or symptoms. She is unaware of any aggravating or ameliorating factors for his generalized weakness. 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 Dr. Crocker was called by the emergency room physician and recommended that the patient be placed in the hospital and seen by him in consultation later this morning. Patient was subsequently admitted to observation status for further evaluation and treatment. Past Medical History Cardiac Medical History: Reports: Coronary Artery Disease, Hypertension Denies: Myocardial Infarction Pulmonary Medical History: Reports: Asthma, Pneumonia Denies: Bronchitis, Chronic Obstructive Pulmonary Disease (COPD) EENT Medical History: Denies: Cataracts, Ears - Hearing aids Neurological Medical History: Reports: Ischemic CVA Denies: Hemorrhagic CVA, Seizures Endocrine Medical History: Reports: Diabetes Mellitus Type 2, Hypothyroidism Denies: Diabetes Mellitus Type 1, Hyperthyroidism Renal/ Medical History: Denies: Chronic Kidney Disease, Nephrolithiasis Malignancy Medical History: Reports: None GI Medical History: Reports: Gastroesophageal Reflux Disease, Hiatal Hernia, Other - abdominal hernia Denies: Cirrhosis, Crohn's Disease, Hepatitis, Peptic Ulcer Disease, Ulcerative Colitis Musculoskeltal Medical History: Reports: Arthritis Denies: Gout Skin Medical History: Reports: Other - Pemphigoid Denies: Eczema, Psoriasis Psychiatric Medical History: Reports: Depression Denies: Alcohol Dependency, Substance Abuse, Tobacco Dependency Traumatic Medical History: Reports: None Hematology: Reports: Anemia Denies: Bleeding Tendencies Infectious Medical History: Reports: None Past Surgical History Past Surgical History: Reports: Herniorrhaphy, Other - EGD with biopsies Social History Information Source: Relative - Spouse Lives with: Half-Way Smoking Status: Former Smoker Electronic Cigarette use?: No Frequency of Alcohol Use: None Hx Recreational Drug Use: No Drugs: None Hx Prescription Drug Abuse: No Past Social History Note: Smokeless tobacco user - Advance Directive Resuscitation Status: Full Code Surrogate healthcare decision maker:: Faith Alberto Family History Family History: Arthritis, Hypertension Parental Family History Reviewed: Yes Children Family History Reviewed: No Sibling(s) Family History Reviewed.: Yes Medication/Allergy Home Medications: Dutasteride [Avodart] 0.5 mg PO DAILY 02/09/17 Insulin Glargine,Hum.rec.anlog [Lantus Insulin 100 Unit/mL Insulin Pen] 38 unit SUBCUT QHS 02/09/17 Levothyroxine Sodium [Synthroid] 75 mcg PO QAM 02/09/17 Tamsulosin HCl [Flomax 0.4 mg Cap.sr] 2 cap PO QHS 02/09/17 Metformin HCl [Glucophage 500 mg Tablet] 500 mg PO BID 01/08/18 Duloxetine HCl 60 mg PO DAILY 10/18/18 Fenofibrate,Micronized [Fenofibrate] 48 mg PO DAILY 10/18/18 Hydroxyzine HCl [Atarax 25 mg Tablet] 1 tab PO BID PRN 10/18/18 Mupirocin [Bactroban 2% Ointment 22 gm] 1 applic TP BID 10/18/18 Oxycodone HCl 10 mg PO ASDIR PRN 10/18/18 Oxymorphone HCl [Opana Er] 40 mg PO Q12 10/18/18 Sucralfate [Carafate 1 gm Tablet] 1 gm PO QID 10/18/18 Allergies/Adverse Reactions: Penicillins Allergy (Unknown, Verified 10/18/18 08:08) Review of Systems ROS unobtainable: Due to mental status - Dementia Physical Exam Vital Signs: Temp Pulse Resp BP Pulse Ox 98.2 F 91 22 H 92/60 L 98 03/26/19 13:54 03/26/19 19:47 03/27/19 01:26 03/27/19 01:26 03/27/19 01:26 Intake & Output 03/25/19 03/26/19 03/27/19 23:59 23:59 23:59 Intake Total 1000 Balance 1000 Weight 56.2 kg General appearance: PRESENT: no acute distress, cooperative Head exam: PRESENT: atraumatic, normocephalic Eye exam: PRESENT: conjunctiva pink. ABSENT: conjunctival injection, scleral icterus Ear exam: PRESENT: normal external ear exam. ABSENT: bleeding, drainage Mouth exam: PRESENT: dry mucosa, neck supple Neck exam: ABSENT: thyromegaly, tracheal deviation Respiratory exam: PRESENT: clear to auscultation ester, symmetrical, unlabored Cardiovascular exam: PRESENT: RRR. ABSENT: clicks, gallop, rubs Pulses: PRESENT: normal radial pulses, normal dorsalis pedis pul Vascular exam: PRESENT: normal capillary refill. ABSENT: pallor GI/Abdominal exam: PRESENT: normal bowel sounds, soft Rectal exam: PRESENT: deferred Extremities exam: ABSENT: joint swelling, pedal edema Musculoskeletal exam: ABSENT: deformity, dislocation Neurological exam: PRESENT: alert, other - Pleasantly affable but confused Psychiatric exam: PRESENT: appropriate affect, normal mood, other - Calm but confused Skin exam: PRESENT: dry, intact, warm. ABSENT: jaundice, rash, urticaria Results Laboratory Results: 03/27/19 01:06 03/27/19 01:06 03/26/19 03/26/19 03/27/19 15:27 15:27 01:06 WBC 18.6 H 14.8 H RBC 5.53 4.80 Hgb 15.5 13.5 Hct 47.6 41.5 MCV 86 86 MCH 28.0 28.0 MCHC 32.5 32.4 RDW 16.8 H 16.4 H Plt Count 440 299 Seg Neutrophils % 82.7 H 83.9 H Sodium 136.4 L Potassium 4.8 Chloride 95 L Carbon Dioxide 27 Anion Gap 14 BUN 18 Creatinine 1.05 Est GFR ( Amer) > 60 Glucose 234 H Calcium 10.5 H Magnesium Total Bilirubin 0.6 AST 13 L Alkaline Phosphatase 89 Total Protein 8.3 H Albumin 4.5 Lipase 79.8 03/27/19 01:06 WBC RBC Hgb Hct MCV MCH MCHC RDW Plt Count Seg Neutrophils % Sodium 135.9 L Potassium 4.8 Chloride 99 Carbon Dioxide 27 Anion Gap 10 BUN 19 Creatinine 0.97 Est GFR ( Amer) > 60 Glucose 222 H Calcium 9.2 Magnesium 2.0 Total Bilirubin 0.5 AST 11 L Alkaline Phosphatase 75 Total Protein 6.9 Albumin 3.7 Lipase 03/26/19 03/26/19 03/27/19 15:27 15:27 01:06 Creatine Kinase 27 L 27 L CK-MB (CK-2) 1.42 Troponin I 0.021 03/27/19 01:06 Creatine Kinase CK-MB (CK-2) 1.41 Troponin I 0.029 Impressions: Chest X-Ray 03/26/19 14:55 IMPRESSION: NO ACUTE RADIOGRAPHIC FINDING IN THE CHEST. Abdomen/Pelvis CT 03/26/19 20:58 IMPRESSION: Mild wall thickening of the distal colon which may represent mild inflammation. Assessment and Plan - Diagnosis (1) Generalized weakness Is this a current diagnosis for this admission?: Yes (2) Syncopal episodes Qualifiers: Syncope type: unspecified Qualified Code(s): R55 - Syncope and collapse Is this a current diagnosis for this admission?: Yes (3) Ventricular arrhythmia Is this a current diagnosis for this admission?: Yes (4) Hypertension Qualifiers: Hypertension type: essential hypertension Qualified Code(s): I10 - Essential (primary) hypertension Is this a current diagnosis for this admission?: Yes (5) Coronary artery disease Qualifiers: Coronary Disease-Associated Artery/Lesion type: [place] artery [place] vs. transplanted heart: [place] heart Associated angina: without angina Qualified Code(s): I25.10 - Atherosclerotic heart disease of [place] coronary artery without angina pectoris Is this a current diagnosis for this admission?: Yes (6) Hypothyroidism (acquired) Is this a current diagnosis for this admission?: Yes (7) Gastro-esophageal reflux disease with esophagitis Is this a current diagnosis for this admission?: Yes (8) Diabetes mellitus type 2 in nonobese Is this a current diagnosis for this admission?: Yes - Plan Summary Summary: Patient is admitted observation status in a telemetry bed. Serial cardiac enzymes will be completed and a cardiology consultation with Dr. Crocker will be obtained. Further evaluation of the patient's syncopal episodes and ventricular arrhythmias will be determined by Dr. Crocker. Patient will be continued on his usual medications for treatment of his chronic medical problems. He will be maintained on a cardiac diet with diabetic restrictions. He will receive usual supportive and symptomatic cares. He will have available Nubain 5 to 10 mg IV every 3 hours as needed for pain using a sliding scale. He will also have available Ativan 1 mg IV every 2 hours as needed anxiety/mild agitation and Haldol 2 mg IV every 4 hours as needed severe agitation or restlessness. - Time Time Spent with patient: 25-34 minutes Medications reviewed and adjusted accordingly: Yes Anticipated discharge: SNF - Inpatient Certification Based on my medical assessment, after consideration of the patient's comorbidities, presenting symptoms, or acuity I expect that the services needed warrant INPATIENT care.: No I certify that my determination is in accordance with my understanding of Medicare's requirements for reasonable and necessary INPATIENT services [42 CFR 412.3e].: No Medical Necessity: Need For Continuous Telemetry Monitoring
--- NOTE | 2019-03-27 07:50 | EKG REPORT ---
SEVERITY:- ABNORMAL ECG - SINUS RHYTHM VENTRICULAR TRIGEMINY LEFT AXIS DEVIATION NONSPECIFIC LATERAL ST-T CHANGES : Confirmed by: Mohan Torres MD 27-Mar-2019 07:50:19
--- NOTE | 2019-03-27 07:50 | EKG REPORT ---
SEVERITY:- ABNORMAL ECG - PACEMAKER SPIKES OR ARTIFACTS SINUS RHYTHM LEFT AXIS DEVIATION NONSPECIFIC ST-T CHANGES- LATERAL LEADS : Confirmed by: Mohan Torres MD 27-Mar-2019 07:48:57
[2019-03-27 08:05] LABS: CREATINE KINASE MB 1.51 ng/mL (<4.55); TROPONIN I 0.028 ng/mL
[2019-03-27] MEDS: SUCRALFATE 1 GM TABLET PO SCH ×4 (08:26→21:49)
[2019-03-27] MEDS: METOCLOPRAMIDE HCL 10 MG TABLET PO SCH ×4 (08:26→21:49)
[2019-03-27] MEDS: ALUMINUM HYDROXIDE PO SCH ×3 (09:28→17:49)
[2019-03-27] MEDS: DOCUSATE SODIUM 100 MG CAPSULE PO SCH ×2 (09:28→17:50)
[2019-03-27] MEDS ORDERED: FAMOTIDINE 20 MG TABLET PO SCH (10:00)
[2019-03-27 10:23] LABS: APPEARANCE,URINE CLEAR; BILIRUBIN,URINE NEGATIVE (NEGATIVE); COLOR,URINE YELLOW; GLUCOSE, URINE NEGATIVE (NEGATIVE); KETONES,URINE NEGATIVE (NEGATIVE); LEUKOCYTE ESTERASE,URINE NEGATIVE (NEGATIVE); NITRITE,URINE NEGATIVE (NEGATIVE); PROTEIN,URINE NEGATIVE (NEGATIVE); URINE SPECIFIC GRAVITY 1.048; UROBILINOGEN,URINE NEGATIVE mg/dL (<2.0)
[2019-03-27] MEDS: PANTOPRAZOLE SODIUM 40 MG VIAL IV SCH ×2 (11:59→21:50)
[2019-03-27] MEDS: INSULIN REG, HUMAN 100 UNIT/ML 3 ML VIAL (PYX) SUBCUT PRN (12:03)
--- NOTE | 2019-03-27 15:47 | Progress Note ---
Provider Note Provider Note: Was able to see patient this morning who was admitted for syncope and generalized weakness and bigeminy trigeminy observed on EKG in ED. Patient is comfortably resting in bed in no apparent distress, accompanied by his , alert oriented x3, stating that he never had any syncopes but he has had frequent falls due to extreme weakness caused by lack of eating due to his severe odynophagia caused by his gastric ulcer which is unfortunately not treated. Patient's who is accompanying him showed me a picture of recent endoscopy with an ulcer and stating that unfortunately he has not been treated for it. Patient still has significant epigastric tenderness on physical examination. On chart review seems like patient had endoscopy on 10/19/2018 which was positive for gastritis and esophageal ulcer, was biopsied and biopsy result was reactive gastropathy, no H. pylori or metaplasia identified. As per my conversation with the patient he is stating that prior to falls he never feels shortness of breath, palpitations, lightheadedness, or loss of consciousness, stating that he would be walking and suddenly feels weak and falls to the ground, he believes it is due to his severe odynophagia causing his p.o. intolerance. Patient also noted to be very thin with low BMI most likely caused by his low p.o. intake. In ED patient was noted to have bigeminy and trigeminy's and Dr. Crocker was consulted who suggested for patient to be admitted. Based on my conversation with Dr. Crocker he does not think that EKG findings are the reason for his falls. I have started patient on pantoprazole 40 mg IV twice daily and continued his sucralfate in the hope of getting his gastritis under control. Meanwhile patient will stay on telemetry and if there is still concern for any type of arrhythmia causing his falls please reconsult Dr. Crocker for further recommendations.
[2019-03-27] MEDS ORDERED: LIDOCAINE 2% VISCOUS SOLN 20 ML UDCUP PO PRN (15:48)
[2019-03-27 16:24] LABS: CREATINE KINASE MB 1.52 ng/mL (<4.55); TROPONIN I 0.021 ng/mL
--- NOTE | 2019-03-27 18:17 | EKG REPORT ---
SEVERITY:- OTHERWISE NORMAL ECG - SINUS RHYTHM LEFT AXIS DEVIATION NONSPECIFIC LATERAL ST-T CHANGES : Confirmed by: Mohan Torres MD 27-Mar-2019 18:17:04
[2019-03-27 23:34] LABS: CREATINE KINASE MB 1.41 ng/mL (<4.55); TROPONIN I 0.027 ng/mL
[2019-03-28] MEDS: INSULIN REG, HUMAN 100 UNIT/ML 3 ML VIAL (PYX) SUBCUT PRN ×5 (00:21→21:40)
[2019-03-28] MEDS ORDERED: HYDRALAZINE HCL INJ/PF 20 MG/1 ML SDV IV PRN (05:00)
[2019-03-28] MEDS ORDERED: HYDRALAZINE HCL INJ/PF 20 MG/1 ML SDV ONE (05:09)
[2019-03-28] MEDS: HEPARIN SOD (PORCINE) 5,000 UNIT/ML 1 ML VIAL SUBCUT SCH ×3 (05:31→21:21)
[2019-03-28 06:36] LABS: ABSOLUTE EOSINOPHILS # (AUTO) 0.1 10^3/uL (0.0-0.6); ABSOLUTE LYMPHOCYTES (AUTO) 1.1 10^3/uL (0.5-4.7); ABSOLUTE MONOCYTES (AUTO) 0.7 10^3/uL (0.1-1.4); ABSOLUTE NEUT (AUTO) 8.2 10^3/uL (1.7-8.2); BASOPHILS % (AUTO) 0.4 % (0-2); EOSINOPHILS % (AUTO) 0.8 % (0-6); HEMATOCRIT 40.9 % (37.9-51.0); HEMOGLOBIN 13.8 g/dL (13.5-17.0); LYMPHOCYTES % (AUTO) 11.2 % (13-45); MEAN CORPUSCULAR HEMOGLOBIN 28.6 pg (27.0-33.4); MEAN CORPUSCULAR HGB CONC 33.7 g/dL (32.0-36.0); MEAN CORPUSCULAR VOLUME 85 fl (80-97); MONOCYTES % (AUTO) 7.3 % (3-13); PLATELET COUNT 263 10^3/uL (150-450); RED BLOOD COUNT 4.82 10^6/uL (4.35-5.55); RED CELL DISTRIBUTION WIDTH 16.3 % (11.5-14.0); SEGMENTED NEUTROPHILS % (AUTO) 80.3 % (42-78); TOTAL CELLS COUNTED % (AUTO) 100 %; WHITE BLOOD COUNT 10.2 10^3/uL (4.0-10.5)
[2019-03-28 06:51] LABS: ALBUMIN 3.7 g/dL (3.5-5.0); ALKALINE PHOSPHATASE 70 U/L (38-126); ANION GAP 10 (5-19); ASPARTATE AMINO TRANSFERASE 14 U/L (17-59); BILIRUBIN,DIRECT 0.2 mg/dL (0.0-0.4); BILIRUBIN,TOTAL 0.6 mg/dL (0.2-1.3); BLOOD UREA NITROGEN 15 mg/dL (7-20); CALCIUM 9.1 mg/dL (8.4-10.2); CARBON DIOXIDE 26 mmol/L (22-30); CHLORIDE 100 mmol/L (98-107); GLUCOSE 183 mg/dL (75-110); POTASSIUM 4.3 mmol/L (3.6-5.0)
--- NOTE | 2019-03-28 07:51 | EKG REPORT ---
SEVERITY:- ABNORMAL ECG - SINUS RHYTHM LEFT AXIS DEVIATION NONSPECIFIC LATERAL ST-T CHANGES : Confirmed by: Mohan Torres MD 28-Mar-2019 07:50:09
[2019-03-28] MEDS ORDERED: INFLUENZA QUAD (6MOS+) 2019-20 VAC 0.5 ML SYR IM ONE (08:00)
[2019-03-28] MEDS: PANTOPRAZOLE SODIUM 40 MG VIAL IV SCH ×2 (09:13→21:21)
[2019-03-28] MEDS: DOCUSATE SODIUM 100 MG CAPSULE PO SCH ×2 (09:14→17:09)
[2019-03-28] MEDS: ALUMINUM HYDROXIDE PO SCH ×3 (09:14→17:08)
[2019-03-28] MEDS: SUCRALFATE 1 GM TABLET PO SCH ×4 (09:14→21:21)
[2019-03-28] MEDS: METOCLOPRAMIDE HCL 10 MG TABLET PO SCH ×4 (09:14→21:21)
[2019-03-28] MEDS ORDERED: HALOPERIDOL LACTATE INJ 5 MG/1 ML VIAL IV PRN (09:22)
--- NOTE | 2019-03-28 09:22 | PDOC PROGRESS REPORT ---
Subjective Progress Note for:: 03/28/19 Subjective:: 83 year old male who [facility] with a 4-day history of generalized weakness. The patient has dementia, and thus is not reliable for historical input, but is accompanied by his significant other who relates that [facility] staff called her to inform her that the patient has been experiencing progressive generalized weakness for the last 4 days. The generalized weakness has been accompanied by several episodes of syncope with collapse and a decrease in oral intake. She admits that he has prior similar episodes with urinary tract infections in the past. She also admits that he has a long history of syncopal episodes, but she is uncertain of the etiology. She is unaware of any additional accompanying or associated signs or symptoms. She is unaware of any aggravating or ameliorating factors for his generalized weakness. 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 Dr. Crocker was called by the emergency room physician and recommended that the patient be placed in the hospital and seen by him in consultation later this morning. Patient was subsequently admitted to observation status for further evaluation and treatment. 03/27/19- Was able to see patient this morning who was admitted for syncope and generalized weakness and bigeminy trigeminy observed on EKG in ED. Patient is comfortably resting in bed in no apparent distress, accompanied by his , alert oriented x3, stating that he never had any syncopes but he has had f requent falls due to extreme weakness caused by lack of eating due to his severe odynophagia caused by his gastric ulcer which is unfortunately not treated. Patient's who is accompanying him showed me a picture of recent endoscopy with an ulcer and stating that unfortunately he has not been treated for it. Patient still has significant epigastric tenderness on physical examination. On chart review seems like patient had endoscopy on 10/19/2018 which was positive for gastritis and esophageal ulcer, was biopsied and biopsy result was reactive gastropathy, no H. pylori or metaplasia identified. As per my conversation with the patient he is stating that prior to falls he never feels shortness of breath, palpitations, lightheadedness, or loss of consciousness, stating that he would be walking and suddenly feels weak and falls to the ground, he believes it is due to his severe odynophagia causing his p.o. intolerance. Patient also noted to be very thin with low BMI most likely caused by his low p.o. intake. In ED patient was noted to have bigeminy and trigeminy's and Dr. Crocker was consulted who suggested for patient to be admitted. Based on my conversation with Dr. Crocker he does not think that EKG findings are the reason for his falls. I have started patient on pantoprazole 40 mg IV twice daily and continued his sucralfate in the hope of getting his gastritis under control. Meanwhile patient will stay on telemetry and if there is still concern for any type of arrhythmia causing his falls please reconsult Dr. Crocker for further recommendations. 03/28/19 No acute events in the last 24 hours. Patient afebrile. Patient is sleepy most of the time. Minimally communicative. Prefers to go home once is stable. Heart rate this morning is in the 70s. Reason For Visit: GENERALIZED WEAKENSS,SYNCOPAL EPISODES,DEMENTIA Physical Exam Vital Signs: Temp Pulse Resp BP Pulse Ox 98.5 F 83 16 112/42 L 98 03/28/19 07:27 03/28/19 07:27 03/28/19 07:27 03/28/19 07:27 03/28/19 07:27 Intake & Output 03/27/19 03/28/19 03/29/19 06:59 06:59 06:59 Intake Total 1000 220 Output Total 376 Balance 1000 -156 Weight 56.2 kg 62 kg General appearance: PRESENT: no acute distress, thin Head exam: PRESENT: atraumatic Eye exam: PRESENT: PERRLA Mouth exam: PRESENT: moist, tongue midline Teeth exam: PRESENT: dental tenderness Neck exam: ABSENT: carotid bruit, JVD, lymphadenopathy, thyromegaly Respiratory exam: PRESENT: decreased breath sounds Cardiovascular exam: PRESENT: systolic murmur Pulses: PRESENT: normal dorsalis pedis pul GI/Abdominal exam: PRESENT: normal bowel sounds, soft. ABSENT: distended, guarding, mass, organolmegaly, rebound, tenderness Rectal exam: PRESENT: deferred Extremities exam: PRESENT: full ROM. ABSENT: calf tenderness, clubbing, pedal edema Neurological exam: PRESENT: alert, awake, oriented to person, oriented to place, oriented to time, oriented to situation, CN II-XII grossly intact. ABSENT: motor sensory deficit Psychiatric exam: PRESENT: appropriate affect, normal mood. ABSENT: homicidal ideation, suicidal ideation Results Laboratory Results: 03/28/19 05:41 03/28/19 05:41 03/27/19 03/28/19 03/28/19 07:55 05:41 05:41 WBC 10.2 RBC 4.82 Hgb 13.8 Hct 40.9 MCV 85 MCH 28.6 MCHC 33.7 RDW 16.3 H Plt Count 263 Seg Neutrophils % 80.3 H Sodium 136.1 L Potassium 4.3 Chloride 100 Carbon Dioxide 26 Anion Gap 10 BUN 15 Creatinine 0.99 Est GFR ( Amer) > 60 Glucose 183 H Calcium 9.1 Magnesium 2.1 Total Bilirubin 0.6 AST 14 L Alkaline Phosphatase 70 Total Protein 7.0 Albumin 3.7 Urine Color YELLOW Urine Appearance CLEAR Urine pH 6.0 Ur Specific [place] 1.048 Urine Protein NEGATIVE Urine Glucose (UA) NEGATIVE Urine Ketones NEGATIVE Urine Blood NEGATIVE Urine Nitrite NEGATIVE Ur Leukocyte Esterase NEGATIVE Urine WBC (Auto) 2 Urine RBC (Auto) 5 03/26/19 03/26/19 03/27/19 15:27 15:27 01:06 Creatine Kinase 27 L 27 L CK-MB (CK-2) 1.42 Troponin I 0.021 03/27/19 03/27/19 03/27/19 01:06 06:44 06:44 Creatine Kinase 30 L CK-MB (CK-2) 1.41 1.51 Troponin I 0.029 0.028 03/27/19 03/27/19 03/27/19 15:05 15:08 22:55 Creatine Kinase 32 L 36 L CK-MB (CK-2) 1.52 Troponin I 0.021 03/27/19 22:55 Creatine Kinase CK-MB (CK-2) 1.41 Troponin I 0.027 Impressions: Chest X-Ray 03/26/19 14:55 IMPRESSION: NO ACUTE RADIOGRAPHIC FINDING IN THE CHEST. Abdomen/Pelvis CT 03/26/19 20:58 IMPRESSION: Mild wall thickening of the distal colon which may represent mild inflammation. Assessment and Plan - Diagnosis (1) Diabetes mellitus type 2 in nonobese Is this a current diagnosis for this admission?: No (2) Generalized weakness Is this a current diagnosis for this admission?: No (3) Syncopal episodes Qualifiers: Syncope type: unspecified Qualified Code(s): R55 - Syncope and collapse Is this a current diagnosis for this admission?: No (4) Ventricular arrhythmia Is this a current diagnosis for this admission?: No (5) Coronary artery disease Qualifiers: Coronary Disease-Associated Artery/Lesion type: [place] artery [place] vs. transplanted heart: [place] heart Associated angina: without angina Qualified Code(s): I25.10 - Atherosclerotic heart disease of [place] coronary artery without angina pectoris Is this a current diagnosis for this admission?: No (6) Gastro-esophageal reflux disease with esophagitis Is this a current diagnosis for this admission?: No (7) Hypertension Qualifiers: Hypertension type: essential hypertension Qualified Code(s): I10 - Essential (primary) hypertension Is this a current diagnosis for this admission?: No (8) Hypothyroidism (acquired) Is this a current diagnosis for this admission?: No - Plan Summary Summary: Patient is admitted observation status in a telemetry bed. Serial cardiac enzymes will be completed and a cardiology consultation with Dr. Crocker will be obtained. Further evaluation of the patient's syncopal episodes and ventricular arrhythmias will be determined by Dr. Crocker. Patient will be continued on his usual medications for treatment of his chronic medical problems. He will be maintained on a cardiac diet with diabetic restrictions. He will receive usual supportive and symptomatic cares. He will have available Nubain 5 to 10 mg IV every 3 hours as needed for pain using a sliding scale. He will also have available Ativan 1 mg IV every 2 hours as needed anxiety/mild agitation and Haldol 2 mg IV every 4 hours as needed severe agitation or restlessness. 03/28/2019-no acute events in the last 24 hours. troponins are stable around 0.027. The heart rate this morning is 72. In sinus rhythm with occasional skipped beats. If the patient found to have cardiac arrhythmias plan is to consult Dr. Crocker. Hypertension Pressure today is 169/60. Heart allows in 10 mg IV every 6 PRN for systolic blood pressure more than 160. - Time Time Spent with patient: 25-34 minutes
[2019-03-28] MEDS ORDERED: MYCOPHENOLATE MOFETIL 500 MG PO SCH (10:00)
[2019-03-28] MEDS ORDERED: BETAMETHASONE DIPROPIONATE TOP SCH (10:00)
[2019-03-28] MEDS ORDERED: (PENDING PHARMACY ID) (Duloxetine Hcl [Duloxetine Hcl] 60 MG) PO SCH (10:00)
[2019-03-28] MEDS ORDERED: (PENDING PHARMACY ID) (Oxycodone Myristate [Xtampza Er] 36 MG) PO SCH (10:00)
[2019-03-28] MEDS: LEVOTHYROXINE SODIUM 0.088 MG TABLET PO SCH (10:28)
[2019-03-28] MEDS: DULOXETINE HCL 30 MG CAPSULE.DR PO SCH ×2 (12:24→21:21)
[2019-03-28] MEDS: MYCOPHENOLATE MOFETIL 250 MG CAPSULE PO SCH ×2 (12:25→21:24)
[2019-03-28] MEDS ORDERED: TAMSULOSIN HCL 0.4 MG CAP.SR.24H PO SCH (22:00)
[2019-03-29] MEDS: HEPARIN SOD (PORCINE) 5,000 UNIT/ML 1 ML VIAL SUBCUT SCH (05:44)
[2019-03-29 06:16] LABS: ABSOLUTE EOSINOPHILS # (AUTO) 0.2 10^3/uL (0.0-0.6); ABSOLUTE LYMPHOCYTES (AUTO) 1.5 10^3/uL (0.5-4.7); ABSOLUTE MONOCYTES (AUTO) 0.6 10^3/uL (0.1-1.4); ABSOLUTE NEUT (AUTO) 6.9 10^3/uL (1.7-8.2); BASOPHILS % (AUTO) 0.4 % (0-2); EOSINOPHILS % (AUTO) 2.7 % (0-6); HEMATOCRIT 37.9 % (37.9-51.0); HEMOGLOBIN 12.6 g/dL (13.5-17.0); LYMPHOCYTES % (AUTO) 15.7 % (13-45); MEAN CORPUSCULAR HEMOGLOBIN 28.5 pg (27.0-33.4); MEAN CORPUSCULAR HGB CONC 33.2 g/dL (32.0-36.0); MEAN CORPUSCULAR VOLUME 86 fl (80-97); MONOCYTES % (AUTO) 6.1 % (3-13); PLATELET COUNT 232 10^3/uL (150-450); RED BLOOD COUNT 4.41 10^6/uL (4.35-5.55); RED CELL DISTRIBUTION WIDTH 16.8 % (11.5-14.0); SEGMENTED NEUTROPHILS % (AUTO) 75.1 % (42-78); TOTAL CELLS COUNTED % (AUTO) 100 %; WHITE BLOOD COUNT 9.2 10^3/uL (4.0-10.5)
[2019-03-29 06:36] LABS: ALBUMIN 3.2 g/dL (3.5-5.0); ALKALINE PHOSPHATASE 64 U/L (38-126); ANION GAP 7 (5-19); ASPARTATE AMINO TRANSFERASE 11 U/L (17-59); BILIRUBIN,DIRECT 0.2 mg/dL (0.0-0.4); BILIRUBIN,TOTAL 0.7 mg/dL (0.2-1.3); BLOOD UREA NITROGEN 16 mg/dL (7-20); CARBON DIOXIDE 26 mmol/L (22-30); CHLORIDE 100 mmol/L (98-107); GLUCOSE 136 mg/dL (75-110); POTASSIUM 4.4 mmol/L (3.6-5.0)
[2019-03-29] MEDS: PANTOPRAZOLE SODIUM 40 MG VIAL IV SCH (08:46)
[2019-03-29] MEDS: MYCOPHENOLATE MOFETIL 250 MG CAPSULE PO SCH (08:47)
[2019-03-29] MEDS: LEVOTHYROXINE SODIUM 0.088 MG TABLET PO SCH (08:47)
[2019-03-29] MEDS: ALUMINUM HYDROXIDE PO SCH ×2 (08:47→12:42)
[2019-03-29] MEDS: METOCLOPRAMIDE HCL 10 MG TABLET PO SCH ×2 (08:47→12:42)
[2019-03-29] MEDS: DOCUSATE SODIUM 100 MG CAPSULE PO SCH (08:47)
[2019-03-29] MEDS: DULOXETINE HCL 30 MG CAPSULE.DR PO SCH (08:47)
[2019-03-29] MEDS: SUCRALFATE 1 GM TABLET PO SCH ×2 (08:47→12:29)
--- NOTE | 2019-03-29 09:49 | PDOC PROGRESS REPORT ---
Subjective Progress Note for:: 03/29/19 Subjective:: 83 year old male who presents to the ER from a local [facility] care with a 4-day history of generalized weakness. The patient has dementia, and thus is not reliable for historical input, but is accompanied by his significant other who relates that senior care staff called her to inform her that the patient has been experiencing progressive generalized weakness for the last 4 days. The generalized weakness has been accompanied by several episodes of syncope with collapse and a decrease in oral intake. She admits that he has prior similar episodes with urinary tract infections in the past. She also admits that he has a long history of syncopal episodes, but she is uncertain of the etiology. She is unaware of any additional accompanying or associated signs or symptoms. She is unaware of any aggravating or ameliorating factors for his generalized weakness. In the emergency room he was found to have a cardiac enzymes and EKGs which revealed no acute myocardial injury or ischemia but he was noted to have asymptomatic episodes of trigeminy and bigeminy on his desk monitor. Dr. Crocker was called by the emergency room physician and recommended that the patient be placed in the hospital and seen by him in consultation later this morning. Patient was subsequently admitted to observation status for further evaluation and treatment. 03/27/19- Was able to see patient this morning who was admitted for syncope and generalized weakness and bigeminy trigeminy observed on EKG in ED. Patient is comfortably resting in bed in no apparent distress, accompanied by his , alert oriented x3, stating that he never had any syncopes but he has had f requent falls due to extreme weakness caused by lack of eating due to his severe odynophagia caused by his gastric ulcer which is unfortunately not treated. Patient's who is accompanying him showed me a picture of recent endoscopy with an ulcer and stating that unfortunately he has not been treated for it. Patient still has significant epigastric tenderness on physical examination. On chart review seems like patient had endoscopy on 10/19/2018 which was positive for gastritis and esophageal ulcer, was biopsied and biopsy result was reactive gastropathy, no H. pylori or metaplasia identified. As per my conversation with the patient he is stating that prior to falls he never feels shortness of breath, palpitations, lightheadedness, or loss of consciousness, stating that he would be walking and suddenly feels weak and falls to the ground, he believes it is due to his severe odynophagia causing his p.o. intolerance. Patient also noted to be very thin with low BMI most likely caused by his low p.o. intake. In ED patient was noted to have bigeminy and trigeminy's and Dr. Crocker was consulted who suggested for patient to be admitted. Based on my conversation with Dr. Crocker he does not think that EKG findings are the reason for his falls. I have started patient on pantoprazole 40 mg IV twice daily and continued his sucralfate in the hope of getting his gastritis under control. Meanwhile patient will stay on telemetry and if there is still concern for any type of arrhythmia causing his falls please reconsult Dr. Crocker for further recommendations. 03/28/19 No acute events in the last 24 hours. Patient afebrile. Patient is sleepy most of the time. Minimally communicative. Prefers to go home once is stable. Heart rate this morning is in the 70s. 03/29/2019-patient is comfortably in the bed communicating well. No acute events in the last 24 hours. Afebrile. Reason For Visit: GENERALIZED WEAKNESS, LOW PO INTAKE Physical Exam Vital Signs: Temp Pulse Resp BP Pulse Ox 97.9 F 78 17 103/51 L 91 L 03/29/19 07:33 03/29/19 07:33 03/29/19 07:33 03/29/19 07:33 03/29/19 07:33 Intake & Output 03/28/19 03/29/19 03/30/19 06:59 06:59 06:59 Intake Total 220 250 Output Total 376 0 Balance -156 250 Weight 62 kg 61.3 kg General appearance: PRESENT: no acute distress, thin Head exam: PRESENT: atraumatic Eye exam: PRESENT: PERRLA Mouth exam: PRESENT: moist, tongue midline Teeth exam: PRESENT: poor dentation Neck exam: ABSENT: carotid bruit, JVD, lymphadenopathy, thyromegaly Respiratory exam: PRESENT: decreased breath sounds Cardiovascular exam: PRESENT: RRR. ABSENT: diastolic murmur, rubs, systolic murmur GI/Abdominal exam: PRESENT: normal bowel sounds, soft. ABSENT: distended, guar [place], mass, organolmegaly, rebound, tenderness Rectal exam: PRESENT: deferred Extremities exam: PRESENT: full ROM. ABSENT: calf tenderness, clubbing, pedal edema Neurological exam: PRESENT: alert, awake, oriented to person, oriented to place, oriented to time, oriented to situation, CN II-XII grossly intact. ABSENT: motor sensory deficit Psychiatric exam: PRESENT: appropriate affect, normal mood. ABSENT: homicidal ideation, suicidal ideation Results Laboratory Results: 03/29/19 05:29 03/29/19 05:29 03/29/19 03/29/19 05:29 05:29 WBC 9.2 RBC 4.41 Hgb 12.6 L Hct 37.9 MCV 86 MCH 28.5 MCHC 33.2 RDW 16.8 H Plt Count 232 Seg Neutrophils % 75.1 Sodium 132.9 L Potassium 4.4 Chloride 100 Carbon Dioxide 26 Anion Gap 7 BUN 16 Creatinine 0.93 Est GFR ( Amer) > 60 Glucose 136 H Calcium 9.0 Magnesium 2.1 Total Bilirubin 0.7 AST 11 L Alkaline Phosphatase 64 Total Protein 6.0 L Albumin 3.2 L 03/26/19 03/26/19 03/27/19 15:27 15:27 01:06 Creatine Kinase 27 L 27 L CK-MB (CK-2) 1.42 Troponin I 0.021 03/27/19 03/27/19 03/27/19 01:06 06:44 06:44 Creatine Kinase 30 L CK-MB (CK-2) 1.41 1.51 Troponin I 0.029 0.028 03/27/19 03/27/19 03/27/19 15:05 15:08 22:55 Creatine Kinase 32 L 36 L CK-MB (CK-2) 1.52 Troponin I 0.021 03/27/19 22:55 Creatine Kinase CK-MB (CK-2) 1.41 Troponin I 0.027 Impressions: Chest X-Ray 03/26/19 14:55 IMPRESSION: NO ACUTE RADIOGRAPHIC FINDING IN THE CHEST. Abdomen/Pelvis CT 03/26/19 20:58 IMPRESSION: Mild wall thickening of the distal colon which may represent mild inflammation. Assessment and Plan - Diagnosis (1) Diabetes mellitus type 2 in nonobese Is this a current diagnosis for this admission?: No (2) Generalized weakness Is this a current diagnosis for this admission?: No (3) Syncopal episodes Qualifiers: Syncope type: unspecified Qualified Code(s): R55 - Syncope and collapse Is this a current diagnosis for this admission?: No (4) Ventricular arrhythmia Is this a current diagnosis for this admission?: No (5) Coronary artery disease Qualifiers: Coronary Disease-Associated Artery/Lesion type: [place] artery [place] vs. transplanted heart: [place] heart Associated angina: without angina Qualified Code(s): I25.10 - Atherosclerotic heart disease of [place] coronary artery without angina pectoris Is this a current diagnosis for this admission?: No (6) Gastro-esophageal reflux disease with esophagitis Is this a current diagnosis for this admission?: No (7) Hypertension Qualifiers: Hypertension type: essential hypertension Qualified Code(s): I10 - Essential (primary) hypertension Is this a current diagnosis for this admission?: No (8) Hypothyroidism (acquired) Is this a current diagnosis for this admission?: No - Plan Summary Summary: Patient is admitted observation status in a telemetry bed. Serial cardiac enzymes will be completed and a cardiology consultation with Dr. Crocker will be obtained. Further evaluation of the patient's syncopal episodes and ventricular arrhythmias will be determined by Dr. Crocker. Patient will be continued on his usual medications for treatment of his chronic medical problems. He will be maintained on a cardiac diet with diabetic restrictions. He will receive usual supportive and symptomatic cares. He will have available Nubain 5 to 10 mg IV every 3 hours as needed for pain using a sliding scale. He will also have available Ativan 1 mg IV every 2 hours as needed anxiety/mild agitation and Haldol 2 mg IV every 4 hours as needed severe agitation or restlessness. 03/28/2019-no acute events in the last 24 hours. troponins are stable around 0.027. The heart rate this morning is 72. In sinus rhythm with occasional skipped beats. If the patient found to have cardiac arrhythmias plan is to consult Dr. Crocker. Hypertension Pressure today is 169/60. Heart allows in 10 mg IV every 6 PRN for systolic blood pressure more than 160. 03/29/2019-patient admitted for a syncopal episodes. Found to have ventricular arrhythmias at the time of admission. His labs are stable. The nurse mentioned to me about possible placement today. But the patient prefers to go home with home health. Blood pressure today is 99/40. Presently not on antihypertensives. Plan is to closely monitor the blood pressures. he has history of type 2 diabetes mellitus latest blood sugar is 136 plan is to continue the present management insulin sliding scale before meals and at bedtime. - Time Time Spent with patient: 15-24 minutes Medications reviewed and adjusted accordingly: Yes Anticipated discharge: Home with Homehealth, SNF
[2019-03-29 11:13] VITALS: BP 74/47
--- NOTE | 2019-03-29 13:34 | Left Against Medical Advice ---
Against Medical Advice Admission Date/Time: 03/27/19 14:45 Primary Care Provider: CHERYL DILLARD PA-C Date of Patient Emigration: 03/29/19 - Diagnosis: (1) Diabetes mellitus type 2 in nonobese Is this a current diagnosis for this admission?: No (2) Generalized weakness Is this a current diagnosis for this admission?: No (3) Syncopal episodes Is this a current diagnosis for this admission?: No (4) Ventricular arrhythmia Is this a current diagnosis for this admission?: No (5) Coronary artery disease Is this a current diagnosis for this admission?: No (6) Gastro-esophageal reflux disease with esophagitis Is this a current diagnosis for this admission?: No (7) Hypertension Is this a current diagnosis for this admission?: No (8) Hypothyroidism (acquired) Is this a current diagnosis for this admission?: No - Summary: Summary: Please see Admission and Progress Notes as well. COLE THIBODEAUX is a 83 M, who LEFT AGAINST MEDICAL ADVICE. The Patient was admitted on 03/27/19 14:45. 83 year old male who presents [facility] the ER [facility] a local [facility] with a 4-day history of generalized weakness. The patient has dementia, and thus is not reliable for historical input, but is accompanied by his significant other who relates that [facility] staff called her to inform her that the patient has been experiencing progressive generalized weakness for the last 4 days. The generalized weakness has been accompanied by several episodes of syncope with collapse and a decrease in oral intake. She admits that he has prior similar episodes with urinary tract infections in the past. She also admits that he has a long history of syncopal episodes, but she is uncertain of the etiology. She is unaware of any additional accompanying or associated signs or symptoms. She is unaware of any aggravating or ameliorating factors for his generalized weakness. In the emergency room he was found to have a cardiac enzymes and EKGs which revealed no acute myocardial injury or ischemia but he was noted to have asymptomatic episodes of trigeminy and bigeminy on his pvc monitor. Dr. Crocker was called by the emergency room physician and recommended that the patient be placed in the hospital and seen by him in consultation later this morning. Patient was subsequently admitted to observation status for further evaluation and treatment. 03/27/19- Was able to see patient this morning who was admitted for syncope and generalized weakness and bigeminy trigeminy observed on EKG in ED. Patient is comfortably resting in bed in no apparent distress, accompanied by his , alert oriented x3, stating that he never had any syncopes but he has had frequent falls due to extreme weakness caused by lack of eating due to his severe odynophagia caused by his gastric ulcer which is unfortunately not treated. Patient's who is accompanying him showed me a picture of recent endoscopy with an ulcer and stating that unfortunately he has not been treated for it. Patient still has significant epigastric tenderness on physical examination. On chart review seems like patient had endoscopy on 10/19/2018 which was positive for gastritis and esophageal ulcer, was biopsied and biopsy result was reactive gastropathy, no H. pylori or metaplasia identified. As per my conversation with the patient he is stating that prior to falls he never feels shortness of breath, palpitations, lightheadedness, or loss of consciousness, stating that he would be walking and suddenly feels weak and falls to the ground, he believes it is due to his severe odynophagia causing his p.o. intolerance. Patient also noted to be very thin with low BMI most likely caused by his low p.o. intake. In ED patient was noted to have bigeminy and trigeminy's and Dr. Crocker was consulted who suggested for patient to be admitted. Based on my conversation with Dr. Crocker he does not think that EKG findings are the reason for his falls. I have started patient on pantoprazole 40 mg IV twice daily and continued his sucralfate in the hope of getting his gastritis under control. Meanwhile patient will stay on telemetry and if there is still concern for any type of arrhythmia causing his falls please reconsult Dr. Crocker for further recommendations. 03/28/19 No acute events in the last 24 hours. Patient afebrile. Patient is sleepy most of the time. Minimally communicative. Prefers to go home once is stable. Heart rate this morning is in the 70s. 03/29/2019-patient is comfortably in the bed communicating well. No acute events in the last 24 hours. Afebrile. 03/29/2019--patient was hypotensive and unstable on standing getting orthostatic by the patient and family wants to go home today nurse highway commissioner Elias tried to convince the and the patient to stay in the hospital. I called the patient to talk to him explained to the risks involved by going home with low blood pressures including the falls possible fractures patient and family understood the risks involved going home AGAINST MEDICAL ADVICE and verbalized response still prefer to go home.
== END 2019-03-29 13:00 | disposition left against medical advice (07) | DRG 312 ==
LOC: ER 13:04 → EH 03-27 03:13 → INTOOBSV 03-27 03:13 → 3N 03-27 04:57 → OBSVTOIN 03-27 14:45 → 3W 03-28 22:49
PROVIDERS: ADMIT Emergency Medicine; ATTEND Emergency Medicine
DX: R55 Syncope and collapse (principal); L12.9 Pemphigoid, unspecified; F03.90 Unspecified dementia, unspecified severity, without behavioral disturbance, psychotic disturbance, mood disturbance, and anxiety; R00.8 Other abnormalities of heart beat; E11.9 Type 2 diabetes mellitus without complications; I25.10 Atherosclerotic heart disease of native coronary artery without angina pectoris; K21.0 Gastro-esophageal reflux disease with esophagitis; I10 Essential (primary) hypertension; E03.9 Hypothyroidism, unspecified; D64.9 Anemia, unspecified; F32.9 Major depressive disorder, single episode, unspecified; Z53.29 Procedure and treatment not carried out because of patient's decision for other reasons; I69.328 Other speech and language deficits following cerebral infarction; R54 Age-related physical debility; Z87.891 Personal history of nicotine dependence; Z79.899 Other long term (current) drug therapy; Z79.4 Long term (current) use of insulin; Z88.0 Allergy status to penicillin; Z82.49 Family history of ischemic heart disease and other diseases of the circulatory system
CPT/HCPCS: 36415; 71046; 74177; 80053; 81001; 82550; 82553; 82962; 83036; 83690; 83735; 84484; 85025; 87086; 93005; 93010; 96361; 96374; 96375; 96376; 99285; G0378; J0360; J1644; J1815; J2060; J2270; J2300; J2405; J3490; J7030; J7517; S0119; S0164

== ENCOUNTER 2019-04-30 17:18 | Inpatient (IN) | payer MEDICARE, OTHER ==
[2019-04-30] MEDS ORDERED: DEXTROSE 50%-WATER 25 GM/50 ML DISP.SYRIN IV ONE ×3 (17:29→23:49)
--- NOTE | 2019-04-30 18:47 | ER Document Report ---
ED General - General Chief Complaint: Low Blood Sugar Stated Complaint: BLOOD SUGAR ISSUE Time Seen by Provider: 04/30/19 17:47 Notes: Patient is an 83-year-old male who presents the emergency department with altered mental status. Patient was at home and according to this is significant other, he has not been very responsive since 1:30 in the morning. She ended up calling EMS and at that time his blood sugar was 35. They gave him D10 and his blood sugar went up to 82. They were then rechecked his blood sugar and it was 55. Here in the emergency department his blood sugar was 75, then was given an amp of D50. Patient has a history of diabetes. According to significant other, he takes 38 units of Lantus. According to her, the patient was eating well, but he is normally up all night and sleeping during the day. She cannot recall if he takes any kind of insulin during the day. He is also currently on oxycodone and xtempa for chronic pain. Patient is unable to give me any meaningful history. Significant other in the room states that patient has bullous pemphigus. States the lesions look how they do normally. She denies any fever. TRAVEL OUTSIDE OF THE [place] IN LAST 30 DAYS: No - Related Data Allergies/Adverse Reactions: Penicillins Allergy (Unknown, Verified 10/18/18 08:08) Home Medications: oxycodone. xtampza er. mycophenolate. betamethasone. duloxetine. lantus. metformin. tamsulosin. omeprazole. prednisone. pantoprazole. synthroid Past Medical History - Social History Smoking Status: Unknown if Ever Smoked Family History: Arthritis, Hypertension Patient has suicidal ideation: No Patient has homicidal ideation: No - Past Medical History Cardiac Medical History: Reports: Hx Coronary Artery Disease, Hx Hypertension Denies: Hx Heart Attack Pulmonary Medical History: Reports: Hx Asthma, Hx Pneumonia Denies: Hx Bronchitis, Hx COPD Neurological Medical History: Reports: Hx Cerebrovascular Accident - SPEECH EFFECTED. Denies: Hx Seizures Endocrine Medical History: Reports: Hx Diabetes Mellitus Type 2, Hx Hypothyroidism. Denies: Hx Diabetes Mellitus Type 1, Hx Hyperthyroidism Renal/ Medical History: Reports: Hx Benign Prostatic Hyperplasia, Hx Kidney Stones. Denies: Hx Peritoneal Dialysis GI Medical History: Reports: Hx Gastroesophageal Reflux Disease, Hx Hiatal Hernia. Denies: Hx Cirrhosis, Hx Crohn's Disease, Hx Hepatitis, Hx Ulcerative Colitis Musculoskeletal Medical History: Reports Hx Arthritis, Denies Hx Gout Skin Medical History: Denies Hx Eczema, Denies Hx Psoriasis Psychiatric Medical History: Reports: Hx Depression Infectious Medical History: Denies: Hx Hepatitis Past Surgical History: Reports: Hx Abdominal Surgery - hernia repair, Hx He rniorrhaphy, Other - EGD with biopsies. Denies: Hx Open Heart Surgery, Hx Pacemaker - Immunizations Hx Diphtheria, Pertussis, Tetanus Vaccination: No Review of Systems - Review of Systems -: Yes ROS unobtainable due to patient's medical condition Physical Exam - Vital signs Vitals: Resp Pulse Ox 25 H 99 04/30/19 17:44 04/30/19 17:44 - Notes Notes: PHYSICAL EXAMINATION: GENERAL: Appears well, healthy, well-nourished, no acute distress. HEAD: Normocephalic, atraumatic. EYES: PERRL, conjunctiva normal, all extraocular movements intact, sclera nonicteric ENT: Moist mucous membranes. NECK: Supple, no noticeable swelling, redness, rash. Normal range of motion. LUNGS: Equal breath sounds bilaterally and clear to auscultation. No wheezes rales or rhonchi. CARDIOVASCULAR: S1-S2, regular rate, regular rhythm. Radial pulses 2+, normal. ABDOMEN: Normoactive bowel sounds. Soft, nontender, no guarding, no rebound tenderness, and no masses palpated. EXTREMITIES: Normal strength and range of motion, no pitting or edema. No cyanosis. NEUROLOGICAL: Confused. PSYCH: Normal mood, normal affect. SKIN: Warm, dry. No rash, lesions, ulcerations noted. Normal skin turgor. Bullous pemphigus lesions noted to right forearm, left back, and bilateral a nterior shins. Course - Re-evaluation Re-evalutation: 04/30/19 20:00 I have been informed that the patient's blood glucose is 73. He will be started on a D10 drip. 04/30/19 20:51 Patient is very agitated. The patient will be given Versed to keep him still, as they have already attempted once to get him to a CT scan. 04/30/19 22:[address] of the head did not show any intracranial findings. No hematoma or mass fact noted. Patient's hematology shows a leukocytosis of 20,000. I am not quite sure what the cause of his leukocytosis is at this time. Urinalysis is unremarkable. Chest x-ray shows atelectasis, most likely due to the patient not being very active and primarily sleeping. According to the patient's signif icant other, for bullous pemphigus lesions looks the same as they always do. She adamantly denies any fever. I attempted to call Dr. Sahu and the phone was busy. Will attempt later. 04/30/19 23:00 I spoke to being in a D10 drip. The patient will be admitted to the telemetry unit. - Vital Signs Vital signs: Temp Pulse Resp BP Pulse Ox 98.5 F 92 15 111/57 L 94 05/02/19 07:37 05/02/19 08:38 05/02/19 08:38 05/02/19 07:37 05/02/19 08:38 - Laboratory Result Diagrams: 05/01/19 04:43 05/01/19 04:43 Laboratory results interpreted by me: 04/30/19 04/30/19 04/30/19 17:28 17:42 17:42 WBC 20.5 H RDW 16.5 H Seg Neuts % (Manual) 90 H Lymphocytes % (Manual) 3 L Abs Neuts (Manual) 18.5 H ABG pH ABG HCO3 ABG Total CO2 Sodium 134.0 L Chloride 94 L Carbon Dioxide 32 H Glucose 137 H POC Glucose 51 L AST 14 L Creatine Kinase 21 L Urine Urobilinogen 04/30/19 04/30/19 04/30/19 18:06 19:36 20:32 WBC RDW Seg Neuts % (Manual) Lymphocytes % (Manual) Abs Neuts (Manual) ABG pH ABG HCO3 ABG Total CO2 Sodium Chloride Carbon Dioxide Glucose POC Glucose 138 H 60 L AST Creatine Kinase Urine Urobilinogen 2.0 H 04/30/19 22:55 WBC RDW Seg Neuts % (Manual) Lymphocytes % (Manual) Abs Neuts (Manual) ABG pH 7.51 H ABG HCO3 28.8 H ABG Total CO2 30.0 H Sodium Chloride Carbon Dioxide Glucose POC Glucose AST Creatine Kinase Urine Urobilinogen - EKG Interpretation by Me Additional EKG results interpreted by me: 04/30/19 20:40 Sinus tachycardia. Rate 116. NC 140; QRS 84; QT 316; QTc 439. No ST e levations or depressions noted. Discharge - Discharge Clinical Impression: Hypoglycemia Condition: Stable Disposition: ADMITTED INPATIENT Admitting Provider: Luis Alberto (Hospitalist) Unit Admitted: Telemetry
[2019-04-30 19:35] LABS: ALBUMIN 3.8 g/dL (3.5-5.0); ALKALINE PHOSPHATASE 72 U/L (38-126); ANION GAP 8 (5-19); ASPARTATE AMINO TRANSFERASE 14 U/L (17-59); BILIRUBIN,DIRECT 0.2 mg/dL (0.0-0.4); BILIRUBIN,TOTAL 0.5 mg/dL (0.2-1.3); BLOOD UREA NITROGEN 15 mg/dL (7-20); CALCIUM 9.2 mg/dL (8.4-10.2); CARBON DIOXIDE 32 mmol/L (22-30); CHLORIDE 94 mmol/L (98-107); CREATINE KINASE 21 U/L (55-170); GLUCOSE 137 mg/dL (75-110); POTASSIUM 4.1 mmol/L (3.6-5.0); TOTAL PROTEIN 6.9 g/dL (6.3-8.2)
[2019-04-30 19:38] LABS: HEMATOCRIT 42.1 % (37.9-51.0); HEMOGLOBIN 13.7 g/dL (13.5-17.0); MEAN CORPUSCULAR HEMOGLOBIN 28.4 pg (27.0-33.4); MEAN CORPUSCULAR HGB CONC 32.5 g/dL (32.0-36.0); MEAN CORPUSCULAR VOLUME 88 fl (80-97); PLATELET COUNT 279 10^3/uL (150-450); RED BLOOD COUNT 4.82 10^6/uL (4.35-5.55); RED CELL DISTRIBUTION WIDTH 16.5 % (11.5-14.0); WHITE BLOOD COUNT 20.5 10^3/uL (4.0-10.5)
[2019-04-30 19:47] LABS: CREATINE KINASE MB 2.39 ng/mL (<4.55); TROPONIN I 0.024 ng/mL
[2019-04-30 19:54] LABS: APPEARANCE,URINE CLEAR; BILIRUBIN,URINE NEGATIVE (NEGATIVE); COLOR,URINE YELLOW; GLUCOSE, URINE NEGATIVE (NEGATIVE); KETONES,URINE NEGATIVE (NEGATIVE); PROTEIN,URINE NEGATIVE (NEGATIVE); URINE SPECIFIC GRAVITY 1.011
[2019-04-30 19:55] LABS: ABSOLUTE LYMPHOCYTES# (MANUAL) 0.6 10^3/uL (0.5-4.7); ABSOLUTE MONOCYTES # (MANUAL) 1.4 10^3/uL (0.1-1.4); BASOPHILS % (MANUAL) 0 % (0-2); EOSINOPHILS % (MANUAL) 0 % (0-6); LYMPHOCYTES % (MANUAL) 3 % (13-45); MONOCYTES % (MANUAL) 7 % (3-13); SEGMENTED NEUTROPHILS % (MAN) 90 % (42-78); TOTAL CELLS COUNTED 100
[2019-04-30 19:56] LABS: ANISOCYTOSIS 1+; PLATELET COMMENT ADEQUATE
[2019-04-30] MEDS ORDERED: DEXTROSE 10%-WATER 1,000 ML IV PRN ×2 (19:56→23:15)
--- NOTE | 2019-04-30 20:00 | RADIOLOGY REPORT (SQ) ---
EXAM DESCRIPTION: CHEST SINGLE VIEW COMPLETED DATE/TIME: 04/30/2019 7:00 pm REASON FOR STUDY: AMS COMPARISON: 03/26/2019 TECHNIQUE: Single frontal radiographic view of the chest acquired. NUMBER OF VIEWS: One view. LIMITATIONS: None. FINDINGS: LUNGS AND PLEURA: No pneumothorax. Left medial-basilar airspace disease. No significant pleural effusion. MEDIASTINUM AND HILAR STRUCTURES: Stable. HEART AND VASCULAR STRUCTURES: Stable. BONES: No acute findings. HARDWARE: None in the chest. OTHER: No other significant finding. IMPRESSION: Left medial-basilar airspace disease. No significant pleural effusion. TECHNICAL DOCUMENTATION: JOB ID: [id number] [id number] 2010 [employer]- All Rights Reserved Reading location - IP/workstation name: [email or web address]
[2019-04-30] MEDS ORDERED: MIDAZOLAM 2 MG/2 ML INJ IV ONE (20:52)
--- NOTE | 2019-04-30 22:17 | RADIOLOGY REPORT (SQ) ---
EXAM DESCRIPTION: [facility]: CT HEAD WITHOUT IV CONTRAST CLINICAL HISTORY: 83 years Male; AMS TECHNIQUE: Noncontrast CT head. All CT scans at this facility use dose modulation, iterative reconstruction, and/or weight based dosing when appropriate to reduce radiation dose to as low as reasonably achievable. COMPARISON: 01/08/2018 FINDINGS: There is significant motion artifact, despite 2 acquisitions. No significant focal hematoma. No midline shift or mass effect. Due to the artifact, cannot reliably evaluate for subtle cortical edema. Visualized portions of paranasal sinuses and mastoids are clear. No grossly displaced fractures, although cannot exclude fracture due to the motion artifact. IMPRESSION: 1. Motion-degraded exam 2. No hematoma or mass effect
[2019-04-30] MEDS ORDERED: MAG HYDROX/AL HYDROX/SIMETH SUSP 30 ML UDCUP PO PRN (23:10)
[2019-04-30] MEDS ORDERED: IPRATROPIUM/ALBUTEROL 0.5-2.5 MG/3 ML AMPUL NEB PRN (23:10)
[2019-04-30] MEDS ORDERED: ACETAMINOPHEN 325 MG TABLET PO PRN (23:10)
[2019-04-30 23:16] LABS: ARTERIAL BLOOD BASE EXCESS 5.6 mmol/L; ARTERIAL BLOOD H2CO3 1.12 mmol/L (1.05-1.35); ARTERIAL BLOOD HCO3 28.8 mmol/L (20-24); ARTERIAL BLOOD O2 SATURATION 97.3 % (94-98); ARTERIAL BLOOD PCO2 37.2 mmHg (35-45); ARTERIAL BLOOD PH 7.51 (7.35-7.45); ARTERIAL BLOOD PO2 86.8 mmHg (80-100)
[2019-04-30 23:43] LABS: ARTERIAL BLOOD FIO2 ROOM AIR
--- NOTE | 2019-05-01 00:05 | EKG REPORT ---
SEVERITY:- ABNORMAL ECG - SINUS TACHYCARDIA LEFT VENTRICULAR HYPERTROPHY : Confirmed by: Sari Crocker MD 01-May-2019 00:04:55
[2019-05-01 00:08] LABS: URINE AMPHETAMINES SCREEN NEGATIVE; URINE BARBITURATES SCREEN NEGATIVE; URINE BENZODIAZEPINES SCREEN NEGATIVE; URINE COCAINE SCREEN NEGATIVE; URINE MARIJUANA (THC) SCREEN NEGATIVE; URINE METHADONE SCREEN NEGATIVE; URINE PHENCYCLIDINE SCREEN NEGATIVE
--- NOTE | 2019-05-01 00:40 | PDOC H&P ---
History of Present Illness Admission Date/PCP: 04/30/19 23:15 CHERYL DILLARD PA-C Patient complains of: Altered mental status History of Present Illness: COLE THIBODEAUX is a 83 year old male with past medical history of bullous pemphigus, chronic pain, coronary artery disease, asthma and insulin-dependent diabetes, recurrent hypoglycemia with encephalopathy. History is obtained by the record and patient's girlfriend at bedside who states he has had greater than 12 hours of severe confusion and associated hypoglycemia in the 30s prompting a call to EMS he receives D5 at 125 an hour and dextrose 50 bolus x3 for recurrent hypoglycemia. He is referred to the hospitalist for admission. Patient significant other at bedside but does report uncontrolled hyperglycemia prompting a bolus of 38 units of Lantus insulin 24 hours ago. He was admitted 1 month ago for similar complaints but left AGAINST MEDICAL ADVICE. Past Medical History Cardiac Medical History: Reports: Coronary Artery Disease, Hypertension Denies: Myocardial Infarction Pulmonary Medical History: Reports: Asthma, Pneumonia Denies: Bronchitis, Chronic Obstructive Pulmonary Disease (COPD) Neurological Medical History: Denies: Seizures Endocrine Medical History: Reports: Diabetes Mellitus Type 2, Hypothyroidism Denies: Diabetes Mellitus Type 1, Hyperthyroidism GI Medical History: Reports: Gastroesophageal Reflux Disease, Hiatal Hernia Denies: Cirrhosis, Crohn's Disease, Hepatitis, Ulcerative Colitis Musculoskeltal Medical History: Reports: Arthritis Denies: Gout Skin Medical History: Denies: Eczema, Psoriasis Psychiatric Medical History: Reports: Depression Hematology: Reports: Anemia Denies: Sickle Cell Disease, Bleeding Tendencies Past Surgical History Past Surgical History: Reports: Herniorrhaphy, Other - EGD with biopsies Denies: Pacemaker Social History Information Source: Friend, H Records Lives with: Spouse/Significant other Smoking Status: Unknown if Ever Smoked Frequency of Alcohol Use: None Hx Recreational Drug Use: No Drugs: None Hx Prescription Drug Abuse: No - Advance Directive Resuscitation Status: Full Code Family History Family History: Arthritis, Hypertension Parental Family History Reviewed: Yes Children Family History Reviewed: Yes Sibling(s) Family History Reviewed.: Yes Medication/Allergy Home Medications: Insulin Glargine,Hum.rec.anlog [Lantus Insulin 100 Unit/mL Insulin Pen] 38 unit SUBCUT QHS 02/09/17 Tamsulosin HCl [Flomax 0.4 mg Cap.sr] 2 cap PO QHS 02/09/17 Duloxetine HCl 60 mg PO BID 10/18/18 Oxycodone HCl 15 mg PO QIDP PRN 10/18/18 Betamethasone Dipropionate 1 applic TP BID 03/27/19 Diclofenac Sodium 2 gm TP QIDP PRN 03/27/19 Levothyroxine Sodium [Synthroid 0.088 mg Tablet] 88 mcg PO DAILY 03/27/19 Metformin HCl [Metformin HCl ER] 500 mg PO BID 03/27/19 Mycophenolate Mofetil [Cellcept] 500 mg PO BID 03/27/19 Oxycodone Myristate [Xtampza ER] 36 mg PO BID 03/27/19 Pantoprazole Sodium [Protonix [address] Tablet] 40 mg PO DAILY 03/27/19 Prednisone 10 mg PO DAILY 03/27/19 Allergies/Adverse Reactions: Penicillins Allergy (Unknown, Verified 10/18/18 08:08) Review of Systems ROS unobtainable: Due to mental status Physical Exam Vital Signs: Temp Pulse Resp BP Pulse Ox 98.7 F 28 H 132/74 H 98 04/30/19 17:45 04/30/19 18:59 04/30/19 18:59 04/30/19 19:00 Intake & Output 04/29/19 04/30/19 05/01/19 11:59 11:59 11:59 Weight 56.245 kg General appearance: PRESENT: disheveled, severe distress, well-developed, well- nourished. ABSENT: cooperative Eye exam: PRESENT: conjunctiva pink, EOMI, PERRLA. ABSENT: scleral icterus Ear exam: PRESENT: normal external ear exam Mouth exam: PRESENT: dry mucosa, tongue midline Neck exam: ABSENT: carotid bruit, JVD, lymphadenopathy, thyromegaly Respiratory exam: PRESENT: clear to auscultation ester, tachypnea. ABSENT: rales, rhonchi, wheezes Cardiovascular exam: PRESENT: RRR, tachycardia. ABSENT: diastolic murmur, rubs, systolic murmur Pulses: PRESENT: normal dorsalis pedis pul Vascular exam: PRESENT: normal capillary refill GI/Abdominal exam: PRESENT: normal bowel sounds, soft. ABSENT: distended, guarding, mass, organolmegaly, rebound, tenderness Rectal exam: PRESENT: deferred Extremities exam: PRESENT: full ROM. ABSENT: calf tenderness, clubbing, pedal edema Neurological exam: PRESENT: alert, awake, oriented to person, oriented to place, oriented to time, oriented to situation, CN II-XII grossly intact. ABSENT: motor sensory deficit Psychiatric exam: PRESENT: appropriate affect, normal mood. ABSENT: homicidal ideation, suicidal ideation Skin exam: PRESENT: erythema, other - All 4 extremities with active bolus pemphigus with compression wraps. ABSENT: intact Results Laboratory Results: 04/30/19 17:42 04/30/19 17:42 04/30/19 04/30/19 04/30/19 17:42 17:42 17:42 WBC 20.5 H RBC 4.82 Hgb 13.7 Hct 42.1 MCV 88 MCH 28.4 MCHC 32.5 RDW 16.5 H Plt Count 279 Seg Neutrophils % Not Reportable Carbonic Acid HCO3/H2CO3 Ratio ABG pH ABG pCO2 ABG pO2 ABG HCO3 ABG O2 Saturation ABG Base Excess FiO2 Sodium 134.0 L Potassium 4.1 Chloride 94 L Carbon Dioxide 32 H Anion Gap 8 BUN 15 Creatinine 0.73 Est GFR ( Amer) > 60 Glucose 137 H Calcium 9.2 Total Bilirubin 0.5 AST 14 L Alkaline Phosphatase 72 Total Protein 6.9 Albumin 3.8 TSH 0.66 Urine Color Urine Appearance Urine pH Ur Specific [place] Urine Protein Urine Glucose (UA) Urine Ketones Urine Blood Urine RBC (Auto) 04/30/19 04/30/19 19:36 22:55 WBC RBC Hgb Hct MCV MCH MCHC RDW Plt Count Seg Neutrophils % Carbonic Acid 1.12 HCO3/H2CO3 Ratio 25:1 ABG pH 7.51 H ABG pCO2 37.2 ABG pO2 86.8 ABG HCO3 28.8 H ABG O2 Saturation 97.3 ABG Base Excess 5.6 FiO2 ROOM AIR Sodium Potassium Chloride Carbon Dioxide Anion Gap BUN Creatinine Est GFR ( Amer) Glucose Calcium Total Bilirubin AST Alkaline Phosphatase Total Protein Albumin TSH Urine Color YELLOW Urine Appearance CLEAR Urine pH 7.0 Ur Specific [place] 1.011 Urine Protein NEGATIVE Urine Glucose (UA) NEGATIVE Urine Ketones NEGATIVE Urine Blood NEGATIVE Urine RBC (Auto) 1 04/30/19 04/30/19 17:42 17:42 Creatine Kinase 21 L CK-MB (CK-2) 2.39 Troponin I 0.024 Impressions: Chest X-Ray 04/30/19 18:43 IMPRESSION: Left medial-basilar airspace disease. No significant pleural effusion. Head CT 04/30/19 18:43 IMPRESSION: 1. Motion-degraded exam 2. No hematoma or mass effect Assessment and Plan - Diagnosis (1) Hypoglycemia Is this a current diagnosis for this admission?: Yes Plan: ICU admission, IV dextrose, follow-up Accu-Cheks every hour and chemistry q. 8. Suspect underlying dementia versus intentional noncompliance. Strongly advised against long-acting IV and oral hypoglycemics. (2) Chronic pain Qualifiers: Chronic pain type: chronic pain syndrome Qualified Code(s): G89.4 - Chronic pain syndrome Is this a current diagnosis for this admission?: Yes Plan: Complication to #1. Unclear regiment, low-dose opiates to avoid withdrawal PRN - Time Time Spent with patient: 25-34 minutes - Inpatient Certification Medical Necessity: Need Close Monitoring Due to Risk of Patient Decompensation
[2019-05-01] MEDS ORDERED: INFLUENZA QUAD (6MOS+) 2019-20 VAC 0.5 ML SYR IM ONE (04:12)
[2019-05-01] MEDS ORDERED: LORAZEPAM INJ 2 MG/1 ML VIAL ONE (04:54)
[2019-05-01] MEDS ORDERED: MORPHINE SULFATE 10 MG/ML INJ ONE ×2 (04:59→05:03)
[2019-05-01] MEDS ORDERED: HALOPERIDOL LACTATE INJ 5 MG/1 ML VIAL ONE (05:04)
[2019-05-01] MEDS ORDERED: MORPHINE SULFATE 10 MG/ML INJ IV PRN (05:25)
[2019-05-01] MEDS ORDERED: HALOPERIDOL LACTATE INJ 5 MG/1 ML VIAL IV ONE (05:30)
[2019-05-01] MEDS ORDERED: LORAZEPAM INJ 2 MG/1 ML VIAL IV ONE (05:30)
--- NOTE | 2019-05-01 05:50 | RADIOLOGY REPORT (SQ) ---
EXAM DESCRIPTION: CT HEAD WITHOUT IV CONTRAST COMPLETED DATE/TME: 05/01/2019 00:00 CLINICAL HISTORY: FELL OUT OF BED. LAC TO FOREHEAD COMPARISON: None available TECHNIQUE: Axial CT of the head obtained from the skull apex to the skull base without contrast. FINDINGS: No acute intracranial hemorrhage identified. No mass, mass effect, shift of the midline, abnormal extra-axial fluid collection or CT evidence of acute ischemic change identified. The ventricular system and sulcal spaces are age appropriate. Scattered areas of hypodensity throughout the supratentorial white matter are nonspecific and may be related to chronic small vessel ischemic change. The visualized paranasal sinuses and the mastoids are clear. No skull fracture identified. Visualized orbits and globes are unremarkable. Atherosclerotic calcification of the intracranial internal carotid arteries. IMPRESSION: 1. No acute intracranial abnormality by CT criteria. This exam was performed according to our departmental dose-optimization program, which includes automated exposure control, adjustment of the mA and/or kV according to patient size and/or use of iterative reconstruction technique.
[2019-05-01] MEDS ORDERED: MORPHINE SULFATE 10 MG/ML INJ IV ONE ×2 (06:00)
[2019-05-01 06:04] LABS: ABSOLUTE BASOPHILS # (AUTO) 0.1 10^3/uL (0.0-0.2); ABSOLUTE EOSINOPHILS # (AUTO) 0.1 10^3/uL (0.0-0.6); ABSOLUTE LYMPHOCYTES (AUTO) 1.5 10^3/uL (0.5-4.7); ABSOLUTE MONOCYTES (AUTO) 1.2 10^3/uL (0.1-1.4); ABSOLUTE NEUT (AUTO) 15.2 10^3/uL (1.7-8.2); BASOPHILS % (AUTO) 0.3 % (0-2); EOSINOPHILS % (AUTO) 0.5 % (0-6); HEMOGLOBIN 12.6 g/dL (13.5-17.0); LYMPHOCYTES % (AUTO) 8.2 % (13-45); MEAN CORPUSCULAR HEMOGLOBIN 28.2 pg (27.0-33.4); MEAN CORPUSCULAR HGB CONC 33.1 g/dL (32.0-36.0); MEAN CORPUSCULAR VOLUME 85 fl (80-97); MONOCYTES % (AUTO) 6.6 % (3-13); PLATELET COUNT 286 10^3/uL (150-450); RED BLOOD COUNT 4.45 10^6/uL (4.35-5.55); RED CELL DISTRIBUTION WIDTH 16.7 % (11.5-14.0); SEGMENTED NEUTROPHILS % (AUTO) 84.4 % (42-78); TOTAL CELLS COUNTED % (AUTO) 100 %; WHITE BLOOD COUNT 18.1 10^3/uL (4.0-10.5)
[2019-05-01 06:33] LABS: ANION GAP 9 (5-19); BLOOD UREA NITROGEN 13 mg/dL (7-20); CALCIUM 8.7 mg/dL (8.4-10.2); CARBON DIOXIDE 29 mmol/L (22-30); CHLORIDE 95 mmol/L (98-107); GLUCOSE 106 mg/dL (75-110); POTASSIUM 3.9 mmol/L (3.6-5.0)
--- NOTE | 2019-05-01 06:39 | Progress Note ---
Provider Note Provider Note: MD responded to overhead [employer]. Patient became abruptly combative and jumped from bed resulting in a head strike to the floor and 1 cm laceration to the right forehead. Patient remained severely confused and agitated requiring Ativan 2 mg, morphine 20 mg, followed by Haldol 10 mg IV. Patient never lost consciousne ss. CT head unremarkable for acute intracranial injury. Follow-up surgery consult for brow laceration likely requiring sutures.
[2019-05-01] MEDS: HEPARIN SOD (PORCINE) 5,000 UNIT/ML 1 ML VIAL SUBCUT SCH ×3 (06:50→21:14)
--- NOTE | 2019-05-01 06:53 | PDOC CONSULTATION ---
Consultation Consult Date: 05/01/19 Provider Consulted: GARY MCDUFFIE Consult reason:: fall and scalp laceration History of Present Illness Admission Date/PCP: 04/30/19 23:15 CHERYL DILLARD PA-C History of Present Illness: COLE THIBODEAUX is a 83 year old male with past medical history of bullous p emphigus, chronic pain, coronary artery disease, asthma and insulin-dependent diabetes, recurrent hypoglycemia with encephalopathy, who fell from his bed and sustained a laceration of his right frontal scalp measuring approximately [address] scan of the head was done and it was negative for acute injuries Past Medical History Cardiac Medical History: Reports: Coronary Artery Disease, Hypertension Denies: Myocardial Infarction Pulmonary Medical History: Reports: Asthma, Pneumonia Denies: Bronchitis, Chronic Obstructive Pulmonary Disease (COPD) Neurological Medical History: Denies: Seizures Endocrine Medical History: Reports: Diabetes Mellitus Type 2, Hypothyroidism Denies: Diabetes Mellitus Type 1, Hyperthyroidism GI Medical History: Reports: Gastroesophageal Reflux Disease, Hiatal Hernia Denies: Cirrhosis, Crohn's Disease, Hepatitis, Ulcerative Colitis Musculoskeltal Medical History: Reports: Arthritis Denies: Gout Skin Medical History: Denies: Eczema, Psoriasis Psychiatric Medical History: Reports: Depression Hematology: Reports: Anemia Denies: Sickle Cell Disease, Bleeding Tendencies Past Surgical History Past Surgical History: Reports: Herniorrhaphy, Other - EGD with biopsies Denies: Pacemaker Social History Lives with: Spouse/Significant other Smoking Status: Unknown if Ever Smoked Frequency of Alcohol Use: None Hx Recreational Drug Use: No Drugs: None Hx Prescription Drug Abuse: No - Advance Directive Resuscitation Status: Full Code Family History Family History: Arthritis, Hypertension Parental Family History Reviewed: No Children Family History Reviewed: No Sibling(s) Family History Reviewed.: No Medication/Allergy Home Medications: Insulin Glargine,Hum.rec.anlog [Lantus Insulin 100 Unit/mL Insulin Pen] 38 unit SUBCUT QHS 02/09/17 Tamsulosin HCl [Flomax 0.4 mg Cap.sr] 2 cap PO QHS 02/09/17 Duloxetine HCl 60 mg PO BID 10/18/18 Oxycodone HCl 15 mg PO QIDP PRN 10/18/18 Betamethasone Dipropionate 1 applic TP BID 03/27/19 Diclofenac Sodium 2 gm TP QIDP PRN 03/27/19 Levothyroxine Sodium [Synthroid 0.088 mg Tablet] 88 mcg PO DAILY 03/27/19 Metformin HCl [Metformin HCl ER] 500 mg PO BID 03/27/19 Mycophenolate Mofetil [Cellcept] 500 mg PO BID 03/27/19 Oxycodone Myristate [Xtampza ER] 36 mg PO BID 03/27/19 Pantoprazole Sodium [Protonix [address] Tablet] 40 mg PO DAILY 03/27/19 Prednisone 10 mg PO DAILY 03/27/19 Allergies/Adverse Reactions: Penicillins Allergy (Unknown, Verified 10/18/18 08:08) Physical Exam Vital Signs: Temp Pulse Resp BP Pulse Ox 98.6 F 116 H 19 126/87 H 97 05/01/19 02:44 05/01/19 03:43 05/01/19 02:44 05/01/19 02:55 05/01/19 02:44 Intake & Output 04/29/19 04/30/19 05/01/19 06:59 06:59 06:59 Intake Total 120 Balance 120 Weight 60.6 kg General appearance: PRESENT: no acute distress, disheveled, thin Head exam: PRESENT: other - Small 2 cm clean laceration of the right frontal scalp with minimal bleeding Mouth exam: PRESENT: neck supple Teeth exam: PRESENT: poor dentation Neck exam: PRESENT: full ROM Respiratory exam: PRESENT: clear to auscultation ester Cardiovascular exam: PRESENT: RRR GI/Abdominal exam: PRESENT: soft Neurological exam: PRESENT: other - Patient disoriented x3 Focused psych exam: PRESENT: restlessness Results Laboratory Results: 05/01/19 04:43 05/01/19 04:43 04/30/19 04/30/19 04/30/19 17:42 17:42 17:42 WBC 20.5 H RBC 4.82 Hgb 13.7 Hct 42.1 MCV 88 MCH 28.4 MCHC 32.5 RDW 16.5 H Plt Count 279 Seg Neutrophils % Not Reportable Carbonic Acid HCO3/H2CO3 Ratio ABG pH ABG pCO2 ABG pO2 ABG HCO3 ABG O2 Saturation ABG Base Excess FiO2 Sodium 134.0 L Potassium 4.1 Chloride 94 L Carbon Dioxide 32 H Anion Gap 8 BUN 15 Creatinine 0.73 Est GFR ( Amer) > 60 Glucose 137 H Calcium 9.2 Total Bilirubin 0.5 AST 14 L Alkaline Phosphatase 72 Total Protein 6.9 Albumin 3.8 TSH 0.66 Urine Color Urine Appearance Urine pH Ur Specific [place] Urine Protein Urine Glucose (UA) Urine Ketones Urine Blood Urine RBC (Auto) 04/30/19 04/30/19 05/01/19 19:36 22:55 04:43 WBC 18.1 H RBC 4.45 Hgb 12.6 L Hct 38.0 MCV 85 MCH 28.2 MCHC 33.1 RDW 16.7 H Plt Count 286 Seg Neutrophils % 84.4 H Carbonic Acid 1.12 HCO3/H2CO3 Ratio 25:1 ABG pH 7.51 H ABG pCO2 37.2 ABG pO2 86.8 ABG HCO3 28.8 H ABG O2 Saturation 97.3 ABG Base Excess 5.6 FiO2 ROOM AIR Sodium Potassium Chloride Carbon Dioxide Anion Gap BUN Creatinine Est GFR ( Amer) Glucose Calcium Total Bilirubin AST Alkaline Phosphatase Total Protein Albumin TSH Urine Color YELLOW Urine Appearance CLEAR Urine pH 7.0 Ur Specific [place] 1.011 Urine Protein NEGATIVE Urine Glucose (UA) NEGATIVE Urine Ketones NEGATIVE Urine Blood NEGATIVE Urine RBC (Auto) 1 05/01/19 04:43 WBC RBC Hgb Hct MCV MCH MCHC RDW Plt Count Seg Neutrophils % Carbonic Acid HCO3/H2CO3 Ratio ABG pH ABG pCO2 ABG pO2 ABG HCO3 ABG O2 Saturation ABG Base Excess FiO2 Sodium 133.1 L Potassium 3.9 Chloride 95 L Carbon Dioxide 29 Anion Gap 9 BUN 13 Creatinine 0.70 Est GFR ( Amer) > 60 Glucose 106 Calcium 8.7 Total Bilirubin AST Alkaline Phosphatase Total Protein Albumin TSH Urine Color Urine Appearance Urine pH Ur Specific [place] Urine Protein Urine Glucose (UA) Urine Ketones Urine Blood Urine RBC (Auto) 04/30/19 04/30/19 17:42 17:42 Creatine Kinase 21 L CK-MB (CK-2) 2.39 Troponin I 0.024 Impressions: Chest X-Ray 04/30/19 18:43 IMPRESSION: Left medial-basilar airspace disease. No significant pleural effusion. Head CT 05/01/19 00:00 IMPRESSION: 1. No acute intracranial abnormality by CT criteria. This exam was performed according to our departmental dose-optimization program, which includes automated exposure control, adjustment of the mA and/or kV according to patient size and/or use of iterative reconstruction technique. Assessment & Plan - Diagnosis (1) Fall Qualifiers: Encounter type: initial encounter Qualified Code(s): W19.XXXA - Unspecified fall, initial encounter Is this a current diagnosis for this admission?: Yes (2) Laceration of scalp without complication Qualifiers: Encounter type: initial encounter Qualified Code(s): S01.01XA - Laceration without foreign body of scalp, initial encounter Is this a current diagnosis for this admission?: Yes - Plan Summary Plan Summary: Assessment: Multiple medical problems Dementia Fall from bed Negative CT scan of the head for acute injuries 2 cm right frontal scalp laceration Plan: Close scalp laceration at bedside with tan Please call surgeon home school liaison officer in 6 days for staple removal
--- NOTE | 2019-05-01 06:56 | Operative Report ---
Operative Report DATE OF SURGERY: 05/01/19 PREOPERATIVE DIAGNOSIS: Right frontal scalp 2 cm laceration POSTOPERATIVE DIAGNOSIS: Same OPERATION: Simple closure of right frontal scalp 2 cm laceration SURGEON: GARY MCDUFFIE ANESTHESIA: Other - None TISSUE REMOVED OR ALTERED: None COMPLICATIONS: None INTRAOPERATIVE FINDINGS: 2 cm simple laceration of the right scalp without identification of underlying bone PROCEDURE: Procedure was done at bedside, the right frontal laceration area was prepped with Betadine the edges of the scalp laceration were approximated with pickups and the laceration was closed with multiple skin tan. The patient tolerated procedure well. The tan would have to be removed in 6 days
[2019-05-01] MEDS: DOCUSATE SODIUM 100 MG CAPSULE PO SCH ×2 (10:03→17:03)
--- NOTE | 2019-05-01 12:20 | PDOC PROGRESS REPORT ---
Subjective Progress Note for:: 05/01/19 Subjective:: Patient medicated due to significant agitation last night/earlier today. Evidently, despite having a sitter, the patient abruptly tried to get out of bed and fell. He hit his head and sustained a laceration on the right forehead. He had ecchymotic bruising on the arms and left side of his body. Because he is on chronic opiate therapy he required large doses of medication to finally achieve sedation. The laceration was stapled and there is a dressing on his forehead. Arms bandaged due to bruising incurred when he tried to get out of bed. Reason For Visit: HYPOGLYCEMIA Acute Agitation Physical Exam Vital Signs: Temp Pulse Resp BP Pulse Ox 98.8 F 88 16 90/55 L 95 05/01/19 07:39 05/01/19 11:55 05/01/19 11:55 05/01/19 07:39 05/01/19 11:55 Intake & Output 04/30/19 05/01/19 05/02/19 06:59 06:59 06:59 Intake Total 120 Balance 120 Weight 60.6 kg General appearance: PRESENT: no acute distress, other - Patient is medicated. Due to his agitation I did not attempt to awaken this morning. Respiratory exam: PRESENT: clear to auscultation ester, symmetrical, unlabored. ABSENT: rales, rhonchi, tachypnea, wheezes Cardiovascular exam: PRESENT: RRR, +S1, +S2. ABSENT: diastolic murmur, systolic murmur GI/Abdominal exam: PRESENT: normal bowel sounds, soft. ABSENT: distended, tenderness Rectal exam: PRESENT: deferred Extremities exam: ABSENT: pedal edema Musculoskeletal exam: PRESENT: normal inspection Neurological exam: ABSENT: awake - Medicated as noted above Psychiatric exam: ABSENT: agitated Focused psych exam: PRESENT: other - Medicated as noted above. ABSENT: restlessness Skin exam: PRESENT: other - Laceration right side of the forehead with tan in place. I did not take the dressings down on both arms. He does have ecchymotic lesions on the left side. Results Laboratory Results: 05/01/19 04:43 05/01/19 04:43 04/30/19 04/30/19 04/30/19 17:42 17:42 17:42 WBC 20.5 H RBC 4.82 Hgb 13.7 Hct 42.1 MCV 88 MCH 28.4 MCHC 32.5 RDW 16.5 H Plt Count 279 Seg Neutrophils % Not Reportable Carbonic Acid HCO3/H2CO3 Ratio ABG pH ABG pCO2 ABG pO2 ABG HCO3 ABG O2 Saturation ABG Base Excess FiO2 Sodium 134.0 L Potassium 4.1 Chloride 94 L Carbon Dioxide 32 H Anion Gap 8 BUN 15 Creatinine 0.73 Est GFR ( Amer) > 60 Glucose 137 H Calcium 9.2 Total Bilirubin 0.5 AST 14 L Alkaline Phosphatase 72 Total Protein 6.9 Albumin 3.8 TSH 0.66 Urine Color Urine Appearance Urine pH Ur Specific [place] Urine Protein Urine Glucose (UA) Urine Ketones Urine Blood Urine RBC (Auto) 04/30/19 04/30/19 05/01/19 19:36 22:55 04:43 WBC 18.1 H RBC 4.45 Hgb 12.6 L Hct 38.0 MCV 85 MCH 28.2 MCHC 33.1 RDW 16.7 H Plt Count 286 Seg Neutrophils % 84.4 H Carbonic Acid 1.12 HCO3/H2CO3 Ratio 25:1 ABG pH 7.51 H ABG pCO2 37.2 ABG pO2 86.8 ABG HCO3 28.8 H ABG O2 Saturation 97.3 ABG Base Excess 5.6 FiO2 ROOM AIR Sodium Potassium Chloride Carbon Dioxide Anion Gap BUN Creatinine Est GFR ( Amer) Glucose Calcium Total Bilirubin AST Alkaline Phosphatase Total Protein Albumin TSH Urine Color YELLOW Urine Appearance CLEAR Urine pH 7.0 Ur Specific [place] 1.011 Urine Protein NEGATIVE Urine Glucose (UA) NEGATIVE Urine Ketones NEGATIVE Urine Blood NEGATIVE Urine RBC (Auto) 1 05/01/19 04:43 WBC RBC Hgb Hct MCV MCH MCHC RDW Plt Count Seg Neutrophils % Carbonic Acid HCO3/H2CO3 Ratio ABG pH ABG pCO2 ABG pO2 ABG HCO3 ABG O2 Saturation ABG Base Excess FiO2 Sodium 133.1 L Potassium 3.9 Chloride 95 L Carbon Dioxide 29 Anion Gap 9 BUN 13 Creatinine 0.70 Est GFR ( Amer) > 60 Glucose 106 Calcium 8.7 Total Bilirubin AST Alkaline Phosphatase Total Protein Albumin TSH Urine Color Urine Appearance Urine pH Ur Specific [place] Urine Protein Urine Glucose (UA) Urine Ketones Urine Blood Urine RBC (Auto) 04/30/19 04/30/19 17:42 17:42 Creatine Kinase 21 L CK-MB (CK-2) 2.39 Troponin I 0.024 Impressions: Chest X-Ray 04/30/19 18:43 IMPRESSION: Left medial-basilar airspace disease. No significant pleural effusion. Head CT 05/01/19 00:00 IMPRESSION: 1. No acute intracranial abnormality by CT criteria. This exam was performed according to our departmental dose-optimization program, which includes automated exposure control, adjustment of the mA and/or kV according to patient size and/or use of iterative reconstruction technique. Assessment and Plan - Diagnosis (1) Hypoglycemia Is this a current diagnosis for this admission?: Yes Plan: 05/01/2019-this is not the first admission for hypoglycemia for this patient. It is unclear if the patient takes too much insulin or takes his Lantus and does not eat. He is currently on D10 and will receive 2 L. Insulin has proved extremely difficult for this patient to manage. He is currently on sliding scale coverage with Accu-Cheks at meals and at bedtime. We will need to try and figure out a safer regimen for the patient. (2) Chronic pain Qualifiers: Chronic pain type: chronic pain syndrome Qualified Code(s): G89.4 - Chronic pain syndrome Is this a current diagnosis for this admission?: Yes Plan: 05/01/2019-it is unclear of the exact etiology of the pain. I cannot obtain further history from the patient today. He does have a history of arthritis. He is on significant doses of opiates and we will try and decrease his dosing as this probably contributes to some of his inability to provide care for himself with regard to his diabetes. (3) Laceration of scalp without complication Qualifiers: Encounter type: initial encounter Qualified Code(s): S01.01XA - Laceration without foreign body of scalp, initial encounter Is this a current diagnosis for this admission?: Yes Plan: 05/01/2019-tan placed. 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 We are holding his Lantus. I am actually holding his glimepiride as well. I have started sliding scale coverage in the event that we drive his sugar too high. We will need to figure out a regimen that is satisfactory but removed some element of danger for the patient. (5) Metabolic encephalopathy Is this a current diagnosis for this admission?: Yes Plan: 05/01/2019-this is most likely due to the repeated episodes of severe hypoglycemia. This could be causing long-term issues especially considering the repeated incidents. In addition he is on significant amount of pain medications and that could be contributing to his altered mental state. I am going to try and slowly wean him from his pain medications. I have added BuSpar to help with anxiety. We will start him back on his Cymbalta as well. - Time Time Spent with patient: 15-24 minutes Medications reviewed and adjusted accordingly: Yes
[2019-05-01] MEDS ORDERED: OXYCODONE HCL IR 5 MG TABLET PO PRN (14:00)
[2019-05-01] MEDS ORDERED: GLUCAGON,HUMAN RECOMB 1 MG INJ IM PRN (14:17)
[2019-05-01] MEDS ORDERED: DEXTROSE 40% GEL 15 GM TUBE PO PRN ×2 (14:17)
[2019-05-01] MEDS ORDERED: DEXTROSE 50%-WATER 25 GM/50 ML DISP.SYRIN IV PRN (14:17)
[2019-05-01] MEDS: TAMSULOSIN HCL 0.4 MG CAP.SR.24H PO SCH (17:03)
[2019-05-01] MEDS: INSULIN LISPRO 100 UNIT/ML 3 ML VIAL SUBCUT SCH ×2 (17:55→21:29)
[2019-05-01] MEDS: DULOXETINE HCL 30 MG CAPSULE.DR PO SCH (21:34)
[2019-05-01] MEDS: BUSPIRONE HCL 10 MG TABLET PO SCH (21:34)
[2019-05-01] MEDS: OXYCODONE HCL SR 10 MG TABLET PO SCH (21:34)
[2019-05-02] MEDS: HEPARIN SOD (PORCINE) 5,000 UNIT/ML 1 ML VIAL SUBCUT SCH ×3 (05:32→21:22)
[2019-05-02] MEDS: LEVOTHYROXINE SODIUM 0.075 MG TABLET PO SCH (05:32)
[2019-05-02] MEDS: INSULIN LISPRO 100 UNIT/ML 3 ML VIAL SUBCUT SCH ×4 (08:56→21:52)
[2019-05-02] MEDS: GLIMEPIRIDE 1 MG TABLET PO SCH (09:03)
[2019-05-02] MEDS: METFORMIN HCL 500 MG TABLET PO SCH (09:03)
[2019-05-02] MEDS: DULOXETINE HCL 30 MG CAPSULE.DR PO SCH ×2 (09:03→21:33)
[2019-05-02] MEDS: DOCUSATE SODIUM 100 MG CAPSULE PO SCH ×2 (09:03→17:11)
[2019-05-02] MEDS: TAMSULOSIN HCL 0.4 MG CAP.SR.24H PO SCH ×2 (09:03→17:11)
[2019-05-02] MEDS: BUSPIRONE HCL 10 MG TABLET PO SCH ×2 (09:03→21:33)
[2019-05-02] MEDS: OXYCODONE HCL SR 10 MG TABLET PO SCH ×2 (09:03→21:32)
[2019-05-02] MEDS: DUTASTERIDE 0.5 MG CAPSULE PO SCH (09:04)
[2019-05-02] MEDS: FENOFIBRATE NANOCRYSTALLIZED 48 MG TABLET PO SCH (09:05)
--- NOTE | 2019-05-02 15:59 | PDOC PROGRESS REPORT ---
Subjective Progress Note for:: 05/02/19 Subjective:: The patient is actually awake and alert. Staff reports that he has been quite calm today. He is a little impulsive regarding physical activity but he seems to reorient and follow direction. His speech is hard to understand and the dysarthria is most likely due to lack of dentition. Reason For Visit: HYPOGLYCEMIA Physical Exam Vital Signs: Temp Pulse Resp BP Pulse Ox 98.6 F 104 H 18 105/59 L 100 05/02/19 11:39 05/02/19 14:00 05/02/19 11:39 05/02/19 11:39 05/02/19 11:39 Intake & Output 05/01/19 05/02/19 05/03/19 06:59 06:59 06:59 Intake Total 120 350 Output Total 600 Balance 120 -250 Weight 60.6 kg 60.6 kg General appearance: PRESENT: no acute distress, cooperative, well-developed Head exam: PRESENT: normocephalic, other - Dressing over laceration right forehead Ear exam: PRESENT: normal external ear exam. ABSENT: bleeding, drainage Mouth exam: PRESENT: moist, tongue midline Teeth exam: PRESENT: edentulous Respiratory exam: PRESENT: rales - Rales at right base, symmetrical, unlabored. ABSENT: rhonchi, tachypnea, wheezes Cardiovascular exam: PRESENT: RRR, +S1, +S2, systolic murmur - 3/6 best heard left sternal border GI/Abdominal exam: PRESENT: normal bowel sounds, soft. ABSENT: distended, guarding, tenderness Rectal exam: PRESENT: deferred Extremities exam: ABSENT: joint swelling, pedal edema Musculoskeletal exam: PRESENT: normal inspection. ABSENT: deformity Neurological exam: PRESENT: alert, awake, oriented to person, oriented to place, other - The patient has dysarthria so it is somewhat difficult to assess. I certainly could make out that he knew he was at [facility]. He had trouble naming the month and the year and could not associate with April. Psychiatric exam: PRESENT: appropriate affect. ABSENT: agitated, anxious Results Laboratory Results: 05/01/19 04:43 05/01/19 04:43 04/30/19 04/30/19 17:42 17:42 Creatine Kinase 21 L CK-MB (CK-2) 2.39 Troponin I 0.024 Impressions: Chest X-Ray 04/30/19 18:43 IMPRESSION: Left medial-basilar airspace disease. No significant pleural effusion. Head CT 05/01/19 00:00 IMPRESSION: 1. No acute intracranial abnormality by CT criteria. This exam was performed according to our departmental dose-optimization program, which includes automated exposure control, adjustment of the mA and/or kV according to patient size and/or use of iterative reconstruction technique. Assessment and Plan - Diagnosis (1) Hypoglycemia Is this a current diagnosis for this admission?: Yes Plan: 05/01/2019-this is not the first admission for hypoglycemia for this patient. I t is unclear if the patient takes too much insulin or takes his Lantus and does not eat. He is currently on D10 and will receive 2 L. Insulin has proved extremely difficult for this patient to manage. He is currently on sliding scale coverage with Accu-Cheks at meals and at bedtime. We will need to try and figure out a safer regimen for the patient. 05/02/[id number] have stabilized. He is on the glimepiride 2 mg a day and metformin 500 mg twice daily. He has insulin sliding scale available. As previously stated we need to establish a regimen at home that can avoid these severe episodes of hypoglycemia. (2) Chronic pain Qualifiers: Chronic pain type: chronic pain syndrome Qualified Code(s): G89.4 - Chronic pain syndrome Is this a current diagnosis for this admission?: Yes Plan: 05/01/2019-it is unclear of the exact etiology of the pain. I cannot obtain further history from the patient today. He does have a history of arthritis. He is on significant doses of opiates and we will try and decrease his dosing as this probably contributes to some of his inability to provide care for himself with regard to his diabetes. 05/02/2019-continue current regimen. The patient did not appear to be in any discomfort today. (3) Laceration of scalp without complication Qualifiers: Encounter type: initial encounter Qualified Code(s): S01.01XA - Laceration without foreign body of scalp, initial encounter Is this a current diagnosis for this admission?: Yes Plan: 05/01/2019-tan placed. Conservative care 05/02/2019-continue to monitor. Will keep covered so the wound will stay clean and the patient does not disturb the wound. 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 We are holding his Lantus. I am actually holding his glimepiride as well. I have started sliding scale coverage in the event that we drive his sugar too high. We will need to figure out a regimen that is satisfactory but removed some element of danger for the patient. 05/02/2019-as noted above glucoses are improving. He is no longer on dextrose solution. Staff reports that he has had a good appetite. We will continue to monitor and adjust medications accordingly. (5) Metabolic encephalopathy Is this a current diagnosis for this admission?: Yes Plan: 05/01/2019-this is most likely due to the repeated episodes of severe hypoglycemia. This could be causing long-term issues especially considering the repeated incidents. In addition he is on significant amount of pain medications and that could be contributing to his altered mental state. I am going to try and slowly wean him from his pain medications. I have added BuSpar to help with anxiety. We will start him back on his Cymbalta as well. 05/02/2019-certainly appears to be resolving. I am not sure what his baseline is. The dysarthria is certainly inhibits the evaluation somewhat. (6) Hyponatremia Is this a current diagnosis for this admission?: Yes Plan: 05/01/2019-the patient's sodium was slightly lower than normal. We will continue to monitor. No acute intervention at this time. 05/02/2019-we will recheck sodium tomorrow. - Time Time Spent with patient: 15-24 minutes Medications reviewed and adjusted accordingly: Yes
[2019-05-03 05:07] LABS: ABSOLUTE EOSINOPHILS # (AUTO) 0.2 10^3/uL (0.0-0.6); ABSOLUTE LYMPHOCYTES (AUTO) 1.1 10^3/uL (0.5-4.7); ABSOLUTE MONOCYTES (AUTO) 0.6 10^3/uL (0.1-1.4); ABSOLUTE NEUT (AUTO) 6.4 10^3/uL (1.7-8.2); BASOPHILS % (AUTO) 0.2 % (0-2); EOSINOPHILS % (AUTO) 2.9 % (0-6); HEMATOCRIT 37.5 % (37.9-51.0); HEMOGLOBIN 12.4 g/dL (13.5-17.0); LYMPHOCYTES % (AUTO) 13.6 % (13-45); MEAN CORPUSCULAR HEMOGLOBIN 28.2 pg (27.0-33.4); MEAN CORPUSCULAR HGB CONC 33.1 g/dL (32.0-36.0); MEAN CORPUSCULAR VOLUME 85 fl (80-97); MONOCYTES % (AUTO) 7.1 % (3-13); PLATELET COUNT 237 10^3/uL (150-450); RED BLOOD COUNT 4.41 10^6/uL (4.35-5.55); RED CELL DISTRIBUTION WIDTH 16.4 % (11.5-14.0); SEGMENTED NEUTROPHILS % (AUTO) 76.2 % (42-78); TOTAL CELLS COUNTED % (AUTO) 100 %; WHITE BLOOD COUNT 8.4 10^3/uL (4.0-10.5)
[2019-05-03] MEDS: HEPARIN SOD (PORCINE) 5,000 UNIT/ML 1 ML VIAL SUBCUT SCH ×3 (05:20→21:54)
[2019-05-03 05:27] LABS: ANION GAP 6 (5-19); BLOOD UREA NITROGEN 16 mg/dL (7-20); CALCIUM 8.5 mg/dL (8.4-10.2); CARBON DIOXIDE 30 mmol/L (22-30); CHLORIDE 97 mmol/L (98-107); GLUCOSE 104 mg/dL (75-110); POTASSIUM 4.5 mmol/L (3.6-5.0)
[2019-05-03] MEDS: LEVOTHYROXINE SODIUM 0.075 MG TABLET PO SCH (05:37)
[2019-05-03] MEDS: INSULIN LISPRO 100 UNIT/ML 3 ML VIAL SUBCUT SCH ×4 (08:54→22:35)
[2019-05-03] MEDS: GLIMEPIRIDE 1 MG TABLET PO SCH (08:54)
[2019-05-03] MEDS: DUTASTERIDE 0.5 MG CAPSULE PO SCH (09:58)
[2019-05-03] MEDS: DOCUSATE SODIUM 100 MG CAPSULE PO SCH ×2 (09:58→17:03)
[2019-05-03] MEDS: DULOXETINE HCL 30 MG CAPSULE.DR PO SCH ×2 (09:58→21:54)
[2019-05-03] MEDS: FENOFIBRATE NANOCRYSTALLIZED 48 MG TABLET PO SCH (09:58)
[2019-05-03] MEDS: BUSPIRONE HCL 10 MG TABLET PO SCH ×2 (09:59→21:54)
[2019-05-03] MEDS: METFORMIN HCL 500 MG TABLET PO SCH (10:02)
[2019-05-03] MEDS: OXYCODONE HCL SR 10 MG TABLET PO SCH ×2 (10:02→21:55)
[2019-05-03] MEDS: TAMSULOSIN HCL 0.4 MG CAP.SR.24H PO SCH ×2 (10:02→17:03)
--- NOTE | 2019-05-03 17:41 | PDOC PROGRESS REPORT ---
Subjective Progress Note for:: 05/03/19 Subjective:: The patient is awake and alert. Nursing try to get him out of bed. He is very unstable. We will order physical therapy. His mood has been excellent over the last 2 to 3 days. Accu-Cheks have been very well controlled as well. Reason For Visit: HYPOGLYCEMIA Physical Exam Vital Signs: Temp Pulse Resp BP Pulse Ox 98.5 F 81 18 128/60 H 96 05/03/19 15:20 05/03/19 15:20 05/03/19 15:20 05/03/19 15:20 05/03/19 15:20 Intake & Output 05/02/19 05/03/19 05/04/19 06:59 06:59 06:59 Intake Total 350 480 Output Total 600 250 400 Balance -250 230 -400 Weight 60.6 kg 58.9 kg General appearance: PRESENT: no acute distress, cooperative, well-developed Respiratory exam: PRESENT: clear to auscultation ester, symmetrical, unlabored. ABSENT: rales, rhonchi, tachypnea, wheezes Cardiovascular exam: PRESENT: RRR, +S1, +S2 GI/Abdominal exam: PRESENT: normal bowel sounds, soft. ABSENT: distended, tenderness Extremities exam: ABSENT: joint swelling, pedal edema Musculoskeletal exam: ABSENT: ambulatory Neurological exam: PRESENT: alert, awake, oriented to person, oriented to place, oriented to situation, other - Dysarthria Psychiatric exam: PRESENT: flat affect. ABSENT: agitated, anxious Results Laboratory Results: 05/03/19 04:33 05/03/19 04:33 05/03/19 05/03/19 04:33 04:33 WBC 8.4 RBC 4.41 Hgb 12.4 L Hct 37.5 L MCV 85 MCH 28.2 MCHC 33.1 RDW 16.4 H Plt Count 237 Seg Neutrophils % 76.2 Sodium 133.0 L Potassium 4.5 Chloride 97 L Carbon Dioxide 30 Anion Gap 6 BUN 16 Creatinine 0.83 Est GFR ( Amer) > 60 Glucose 104 Calcium 8.5 Magnesium 2.2 04/30/19 04/30/19 17:42 17:42 Creatine Kinase 21 L CK-MB (CK-2) 2.39 Troponin I 0.024 Impressions: Chest X-Ray 04/30/19 18:43 IMPRESSION: Left medial-basilar airspace disease. No significant pleural effusion. Head CT 05/01/19 00:00 IMPRESSION: 1. No acute intracranial abnormality by CT criteria. This exam was performed according to our departmental dose-optimization program, which includes automated exposure control, adjustment of the mA and/or kV according to patient size and/or use of iterative reconstruction technique. Assessment and Plan - Diagnosis (1) Hypoglycemia Is this a current diagnosis for this admission?: Yes Plan: 05/01/2019-this is not the first admission for hypoglycemia for this patient. It is unclear if the patient takes too much insulin or takes his Lantus and does not eat. He is currently on D10 and will receive 2 L. Insulin has proved extremely difficult for this patient to manage. He is currently on sliding scale coverage with Accu-Cheks at meals and at bedtime. We will need to try and figure out a safer regimen for the patient. 05/[id number] have stabilized. He is on the glimepiride 2 mg a day and metformin 500 mg twice daily. He has insulin sliding scale available. As previously stated we need to establish a regimen at home that can avoid these severe episodes of hypoglycemia. 05/03/2019-the patient is doing well. His glucoses are occasionally above 150. I will increase his glimepiride back to 4 mg daily. (2) Chronic pain Qualifiers: Chronic pain type: chronic pain syndrome Qualified Code(s): G89.4 - Chronic pain syndrome Is this a current diagnosis for this admission?: Yes Plan: 05/01/2019-it is unclear of the exact etiology of the pain. I cannot obtain further history from the patient today. He does have a history of arthritis. He is on significant doses of opiates and we will try and decrease his dosing as this probably contributes to some of his inability to provide care for himself with regard to his diabetes. 05/02/2019-continue current regimen. The patient did not appear to be in any discomfort today. 05/03/2019-patient is comfortable again today. No changes. (3) Laceration of scalp without complication Qualifiers: Encounter type: initial encounter Qualified Code(s): S01.01XA - Laceration without foreign body of scalp, initial encounter Is this a current diagnosis for this admission?: Yes Plan: 05/01/2019-tan placed. Conservative care 05/02/2019-continue to monitor. Will keep covered so the wound will stay clean and the patient does not disturb the wound. 05/03/2019-continue conservative therapy. Tan out in approximately 10 days. 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 We are holding his Lantus. I am actually holding his glimepiride as well. I have started sliding scale coverage in the event that we drive his sugar too high. We will need to figure out a regimen that is satisfactory but removed some element of danger for the patient. 05/02/2019-as noted above glucoses are improving. He is no longer on dextrose solution. Staff reports that he has had a good appetite. We will continue to monitor and adjust medications accordingly. Continue Accu-Cheks. Will monitor on his baseline dose of glimepiride. No insulin required. (5) Metabolic encephalopathy Is this a current diagnosis for this admission?: Yes Plan: 05/01/2019-this is most likely due to the repeated episodes of severe hypoglycemia. This could be causing long-term issues especially considering the repeated incidents. In addition he is on significant amount of pain medications and that could be contributing to his altered mental state. I am going to try and slowly wean him from his pain medications. I have added BuSpar to help with anxiety. We will start him back on his Cymbalta as well. 05/02/2019-certainly appears to be resolving. I am not sure what his baseline is. The dysarthria is certainly inhibits the evaluation somewhat. 05/03/2019-he appears to be at baseline. (6) Hyponatremia Is this a current diagnosis for this admission?: Yes Plan: 05/01/2019-the patient's sodium was slightly lower than normal. We will continue to monitor. No acute intervention at this time. 05/02/2019-we will recheck sodium tomorrow. 05/03/2019-serum sodium is still slightly low. This may be his baseline. - Time Time Spent with patient: 15-24 minutes Medications reviewed and adjusted accordingly: Yes Anticipated discharge: Home with Homehealth
[2019-05-04] MEDS: HEPARIN SOD (PORCINE) 5,000 UNIT/ML 1 ML VIAL SUBCUT SCH ×3 (05:35→21:43)
[2019-05-04] MEDS: LEVOTHYROXINE SODIUM 0.075 MG TABLET PO SCH (05:37)
[2019-05-04] MEDS: INSULIN LISPRO 100 UNIT/ML 3 ML VIAL SUBCUT SCH ×4 (08:06→21:44)
[2019-05-04] MEDS: OXYCODONE HCL SR 10 MG TABLET PO SCH ×2 (09:12→21:02)
[2019-05-04] MEDS: BUSPIRONE HCL 10 MG TABLET PO SCH ×2 (09:12→21:02)
[2019-05-04] MEDS: DOCUSATE SODIUM 100 MG CAPSULE PO SCH ×2 (09:12→17:17)
[2019-05-04] MEDS: METFORMIN HCL 500 MG TABLET PO SCH (09:12)
[2019-05-04] MEDS: TAMSULOSIN HCL 0.4 MG CAP.SR.24H PO SCH ×2 (09:12→17:17)
[2019-05-04] MEDS: DULOXETINE HCL 30 MG CAPSULE.DR PO SCH ×2 (09:12→21:02)
[2019-05-04] MEDS: FENOFIBRATE NANOCRYSTALLIZED 48 MG TABLET PO SCH (09:13)
[2019-05-04] MEDS: DUTASTERIDE 0.5 MG CAPSULE PO SCH (09:13)
[2019-05-04] MEDS ORDERED: GLIMEPIRIDE 4 MG TABLET PO SCH (10:00)
[2019-05-04] MEDS: NORMAL SALINE 1000 ML 1,000 ML IV PRN (18:21)
[2019-05-04] MEDS ORDERED: TAMSULOSIN HCL 0.4 MG CAP.SR.24H PO ONE (20:00)
--- NOTE | 2019-05-04 21:13 | PDOC PROGRESS REPORT ---
Subjective Progress Note for:: 05/04/19 Subjective:: The patient is resting in bed. His is at the bedside. He has a scalpel on his face. There is no report of any acute episode today. He does not have any focal complaints today. Reason For Visit: HYPOGLYCEMIA Physical Exam Vital Signs: Temp Pulse Resp BP Pulse Ox 98.3 F 96 20 127/59 H 96 05/04/19 20:44 05/04/19 20:44 05/04/19 20:44 05/04/19 20:44 05/04/19 20:44 Intake & Output 05/03/19 05/04/19 05/05/19 06:59 06:59 06:59 Intake Total 480 260 Output Total 250 900 Balance 230 -640 Weight 58.9 kg 59 kg General appearance: PRESENT: no acute distress, cooperative, well-developed Respiratory exam: PRESENT: clear to auscultation ester, symmetrical, unlabored. ABSENT: rales, rhonchi, tachypnea, wheezes Cardiovascular exam: PRESENT: RRR, +S1, +S2 GI/Abdominal exam: PRESENT: normal bowel sounds, soft. ABSENT: tenderness Neurological exam: PRESENT: alert, awake, oriented to person, oriented to place, oriented to situation Psychiatric exam: PRESENT: agitated - He appears slightly agitated by facial expression., unusual affect - Affect reflects slight agitation/aggravation. ABSENT: anxious Results Laboratory Results: 05/03/19 04:33 05/03/19 04:33 04/30/19 04/30/19 17:42 17:42 Creatine Kinase 21 L CK-MB (CK-2) 2.39 Troponin I 0.024 Impressions: Chest X-Ray 04/30/19 18:43 IMPRESSION: Left medial-basilar airspace disease. No significant pleural effusion. Head CT 05/01/19 00:00 IMPRESSION: 1. No acute intracranial abnormality by CT criteria. This exam was performed according to our departmental dose-optimization program, which includes automated exposure control, adjustment of the mA and/or kV according to patient size and/or use of iterative reconstruction technique. Assessment and Plan - Diagnosis (1) Hypoglycemia Is this a current diagnosis for this admission?: Yes Plan: 05/01/2019-this is not the first admission for hypoglycemia for this patient. It is unclear if the patient takes too much insulin or takes his Lantus and does not eat. He is currently on D10 and will receive 2 L. Insulin has proved extremely difficult for this patient to manage. He is currently on sliding scale coverage with Accu-Cheks at meals and at bedtime. We will need to try and figure out a safer regimen for the patient. 05/[id number] have stabilized. He is on the glimepiride 2 mg a day and metformin 500 mg twice daily. He has insulin sliding scale available. As previously stated we need to establish a regimen at home that can avoid these severe episodes of hypoglycemia. 05/03/2019-the patient is doing well. His glucoses are occasionally above 150. I will increase his glimepiride back to 4 mg daily. 05/04/2019-he did have a glucose below 70. I will decrease the glimepiride back to 2 mg daily. I told that he should not be on insulin at this point. The stipulation is that he follow a strict diabetic diet. If he does not follow good diet at home that he may need insulin again however the insulin has been causing severe hypoglycemic episodes. I will leave instructions on the discharge plan for the patient to take 500 mg of metformin twice daily and 2 mg of glimepiride in the morning. If his sugar is greater than 150 in the afternoon and then take a second glimepiride. (2) Chronic pain Qualifiers: Chronic pain type: chronic pain syndrome Qualified Code(s): G89.4 - Chronic pain syndrome Is this a current diagnosis for this admission?: Yes Plan: 05/01/2019-it is unclear of the exact etiology of the pain. I cannot obtain further history from the patient today. He does have a history of arthritis. He is on significant doses of opiates and we will try and decrease his dosing as this probably contributes to some of his inability to provide care for himself with regard to his diabetes. 05/02/2019-continue current regimen. The patient did not appear to be in any discomfort today. 05/03/2019-patient is comfortable again today. No changes. 05/04/2019-continue current regimen (3) Laceration of scalp without complication Qualifiers: Encounter type: initial encounter Qualified Code(s): S01.01XA - Laceration without foreign body of scalp, initial encounter Is this a current diagnosis for this admission?: Yes Plan: 05/01/2019-tan placed. Conservative care 05/02/2019-continue to monitor. Will keep covered so the wound will stay clean and the patient does not disturb the wound. 05/03/2019-continue conservative therapy. [place] out in approximately 10 days. 05/04/2019-I explained to the patient's that the tan can be removed at their primary care provider's office. (4) Type 2 diabetes mellitus Qualifiers: Diabetes mellitus care home insulin use: with intermediate school teacher use Is this a current diagnosis for this admission?: Yes Plan: 05/01/2019-the patient is on metformin and glimeperide. We are holding his Lantus. I am actually holding his glimepiride as well. I have started sliding scale coverage in the event that we drive his sugar too high. We will need to figure out a regimen that is satisfactory but removed some element of danger for the patient. 05/02/2019-as noted above glucoses are improving. He is no longer on dextrose solution. Staff reports that he has had a good appetite. We will continue to monitor and adjust medications accordingly. 05/03/2019-continue Accu-Cheks. Will monitor on his baseline dose of glimepiride. No insulin required. 05/04/2019-I believe the patient should be discharged on metformin 500 mg twice daily and glimepiride 2 mg each morning. She did ask about elevated glucose readings. I suggested that he take an additional 2 mg of glimepiride in the evening if his sugars above 150. I did encourage him to make an appointment with the tire layer next week. (5) Metabolic encephalopathy Is this a current diagnosis for this admission?: Yes Plan: 05/01/2019-this is most likely due to the repeated episodes of severe hypoglycemia. This could be causing long-term issues especially considering the repeated incidents. In addition he is on significant amount of pain medications and that could be contributing to his altered mental state. I am going to try and slowly wean him from his pain medications. I have added BuSpar to help with anxiety. We will start him back on his Cymbalta as well. 05/02/2019-certainly appears to be resolving. I am not sure what his baseline is. The dysarthria is certainly inhibits the evaluation somewhat. 05/03/2019-he appears to be at baseline. 05/04/2019-with the addition of BuSpar and low-dose Risperdal the patient appears to be at a new baseline. He is not agitated. I would suggest continuing this medication regimen as an outpatient. (6) Hyponatremia Is this a current diagnosis for this admission?: Yes Plan: 05/01/2019-the patient's sodium was slightly lower than normal. We will continue to monitor. No acute intervention at this time. 05/02/2019-we will recheck sodium tomorrow. 05/03/2019-serum sodium is still slightly low. This may be his baseline. 05/04/2019-we will recheck serum sodium tomorrow. I believe his baseline will rest just below the lower limit normal. - Plan Summary Summary: 05/04/2019-the patient initially presented with severe hypoglycemia requiring dextrose infusion to maintain normal glucose levels. Eventually he was taken off of the dextrose solution. He is back on metformin 500 mg twice daily. He is only on 2 mg of glimepiride daily. The 4 mg dose did tend towards low Accu- Cheks. I would continue 500 mg of metformin twice daily and 2 mg of glimepiride in the morning. If his glucose in the afternoon is greater than 150 I would take another 2 mg dose of glimepiride. The patient is wheelchair-bound at home. Transfer to [facility] facility would not be of benefit because the [facility] ent is not rehab verbal. I would suggest home health with physical therapy. - Time Time Spent with patient: 15-24 minutes Medications reviewed and adjusted accordingly: Yes Anticipated discharge: Home with Homehealth Within: within 24 hours
[2019-05-04] MEDS ORDERED: DULOXETINE HCL 30 MG CAPSULE.DR PO SCH (22:00)
[2019-05-05] MEDS: NORMAL SALINE 1000 ML 1,000 ML IV PRN (01:53)
[2019-05-05] MEDS: HEPARIN SOD (PORCINE) 5,000 UNIT/ML 1 ML VIAL SUBCUT SCH ×3 (05:04→21:34)
[2019-05-05] MEDS: LEVOTHYROXINE SODIUM 0.075 MG TABLET PO SCH (05:04)
[2019-05-05 05:28] LABS: ANION GAP 7 (5-19); BLOOD UREA NITROGEN 16 mg/dL (7-20); CALCIUM 8.4 mg/dL (8.4-10.2); CARBON DIOXIDE 26 mmol/L (22-30); CHLORIDE 102 mmol/L (98-107); POTASSIUM 4.1 mmol/L (3.6-5.0)
[2019-05-05 05:32] LABS: GLUCOSE 50 mg/dL (75-110)
[2019-05-05] MEDS: DEXTROSE 50%-WATER 25 GM/50 ML DISP.SYRIN IV PRN ×3 (06:05→21:27)
[2019-05-05] MEDS: INSULIN LISPRO 100 UNIT/ML 3 ML VIAL SUBCUT SCH ×4 (07:42→21:32)
[2019-05-05] MEDS: BUSPIRONE HCL 10 MG TABLET PO SCH ×2 (09:16→21:28)
[2019-05-05] MEDS: FENOFIBRATE NANOCRYSTALLIZED 48 MG TABLET PO SCH (09:16)
[2019-05-05] MEDS: DOCUSATE SODIUM 100 MG CAPSULE PO SCH ×2 (09:16→17:08)
[2019-05-05] MEDS: OXYCODONE HCL SR 10 MG TABLET PO SCH ×2 (09:17→21:27)
[2019-05-05] MEDS: DULOXETINE HCL 30 MG CAPSULE.DR PO SCH ×2 (09:17→21:28)
[2019-05-05] MEDS: DUTASTERIDE 0.5 MG CAPSULE PO SCH (09:17)
--- NOTE | 2019-05-05 09:39 | PDOC PROGRESS REPORT ---
Subjective Progress Note for:: 05/05/19 Subjective:: No complaints focalized. Reason For Visit: HYPOGLYCEMIA Physical Exam Vital Signs: Temp Pulse Resp BP Pulse Ox 97.3 F 83 16 134/53 H 100 05/05/19 08:05 05/05/19 08:05 05/05/19 08:05 05/05/19 08:05 05/05/19 08:05 Intake & Output 05/04/19 05/05/19 05/06/19 06:59 06:59 06:59 Intake Total 260 942 740 Output Total 900 450 Balance -640 492 740 Weight 59 kg 58.3 kg General appearance: PRESENT: no acute distress Head exam: PRESENT: other - Dressing removed; tan in place. No evidence of drainage erythema, or wound dehiscence Results Laboratory Results: 05/03/19 04:33 05/05/19 04:25 05/05/19 04:25 Sodium 134.8 L Potassium 4.1 Chloride 102 Carbon Dioxide 26 Anion Gap 7 BUN 16 Creatinine 0.84 Est GFR ( Amer) > 60 Glucose 50 L Calcium 8.4 04/30/19 04/30/19 17:42 17:42 Creatine Kinase 21 L CK-MB (CK-2) 2.39 Troponin I 0.024 Impressions: Chest X-Ray 04/30/19 18:43 IMPRESSION: Left medial-basilar airspace disease. No significant pleural effusion. Head CT 05/01/19 00:00 IMPRESSION: 1. No acute intracranial abnormality by CT criteria. This exam was performed according to our departmental dose-optimization program, which includes automated exposure control, adjustment of the mA and/or kV according to patient size and/or use of iterative reconstruction technique. Assessment & Plan - Diagnosis (1) Laceration of scalp without complication Qualifiers: Encounter type: initial encounter Qualified Code(s): S01.01XA - Laceration without foreign body of scalp, initial encounter Is this a current diagnosis for this admission?: Yes Plan: Impression: Satisfactory wound closure 3 days following fall, laceration closure with tan ReCommendations: 1. Leave tan in for 1 more week. [place] can be removed by primary care provider. 2. Surgery will sign off; please reconsult if clinically indicated. - Time Time Spent with patient: Less than 15 minutes
[2019-05-05] MEDS ORDERED: TAMSULOSIN HCL 0.4 MG CAP.SR.24H PO SCH (10:00)
[2019-05-05] MEDS ORDERED: METFORMIN HCL 500 MG TABLET PO SCH (10:00)
[2019-05-05] MEDS ORDERED: GLIMEPIRIDE 1 MG TABLET PO SCH (10:00)
--- NOTE | 2019-05-05 10:51 | PDOC PROGRESS REPORT ---
Subjective Progress Note for:: 05/05/19 Subjective:: Patient says he feels well today. Denies any dizziness lightheadedness sweats, shortness of breath or chest pain. Of note this morning, patient's BMP revealed blood glucose of 50. At that time patient was not symptomatic, but does have a history of symptomatic hypoglycemia with frequent recurrences. Patient was given D50 push before fingerstick was done. Fingerstick done about 10 minutes after the push showed blood sugar of 121 and subsequently went up to 203. Reason For Visit: HYPOGLYCEMIA Physical Exam Vital Signs: Temp Pulse Resp BP Pulse Ox 97.3 F 83 16 134/53 H 100 05/05/19 08:05 05/05/19 08:05 05/05/19 08:05 05/05/19 08:05 05/05/19 08:05 Intake & Output 05/04/19 05/05/19 05/06/19 06:59 06:59 06:59 Intake Total 260 942 740 Output Total 900 450 Balance -640 492 740 Weight 59 kg 58.3 kg General appearance: PRESENT: no acute distress, cooperative Respiratory exam: PRESENT: clear to auscultation ester, symmetrical, unlabored. ABSENT: tachypnea Cardiovascular exam: PRESENT: +S1, +S2. ABSENT: systolic murmur, tachycardia GI/Abdominal exam: PRESENT: normal bowel sounds, soft. ABSENT: rebound, rigid, tenderness Neurological exam: PRESENT: alert, awake Results Laboratory Results: 05/03/19 04:33 05/05/19 04:25 05/05/19 04:25 Sodium 134.8 L Potassium 4.1 Chloride 102 Carbon Dioxide 26 Anion Gap 7 BUN 16 Creatinine 0.84 Est GFR ( Amer) > 60 Glucose 50 L Calcium 8.4 04/30/19 04/30/19 17:42 17:42 Creatine Kinase 21 L CK-MB (CK-2) 2.39 Troponin I 0.024 Impressions: Chest X-Ray 04/30/19 18:43 IMPRESSION: Left medial-basilar airspace disease. No significant pleural effusion. Head CT 05/01/19 00:00 IMPRESSION: 1. No acute intracranial abnormality by CT criteria. This exam was performed according to our departmental dose-optimization program, which includes automated exposure control, adjustment of the mA and/or kV according to patient size and/or use of iterative reconstruction technique. Assessment and Plan - Diagnosis (1) Hypoglycemia Is this a current diagnosis for this admission?: Yes Plan: 05/01/2019-this is not the first admission for hypoglycemia for this patient. It is unclear if the patient takes too much insulin or takes his Lantus and does not eat. He is currently on D10 and will receive 2 L. Insulin has proved extremely difficult for this patient to manage. He is currently on sliding scale coverage with Accu-Cheks at meals and at bedtime. We will need to try and figure out a safer regimen for the patient. 05/[id number] have stabilized. He is on the glimepiride 2 mg a day and metformin 500 mg twice daily. He has insulin sliding scale available. As previously stated we need to establish a regimen at home that can avoid these s evere episodes of hypoglycemia. 05/03/2019-the patient is doing well. His glucoses are occasionally above 150. I will increase his glimepiride back to 4 mg daily. 05/04/2019-he did have a glucose below 70. I will decrease the glimepiride back to 2 mg daily. I told that he should not be on insulin at this point. The stipulation is that he follow a strict diabetic diet. If he does not follow good diet at home that he may need insulin again however the insulin has been causing severe hypoglycemic episodes. I will leave instructions on the discharge plan for the patient to take 500 mg of metformin twice daily and 2 mg of glimepiride in the morning. If his sugar is greater than 150 in the afternoon and then take a second glimepiride. 05/05/19 -as discussed above under subjective, patient had on the hypoglycemic episode this morning. Though it was on BMP, blood glucose was 50. D50 IV push was given before fingerstick was performed. Fingerstick showed 121 and later eleuterio to 203. Giving recurrences of hypoglycemia, I will discontinue glimepiride. Of note glimepiride 2 mg dose was already given today so it is possible that patient may end up having another hypoglycemic episode today. We will monitor. Continue to hold insulin. We will opt for only metformin 500 mg twice daily for now. Last measured A1c on this hospitalization was 7.3. (2) Laceration of scalp without complication Qualifiers: Encounter type: initial encounter Qualified Code(s): S01.01XA - Laceration without foreign body of scalp, initial encounter Is this a current diagnosis for this admission?: Yes Plan: 05/01/2019-tan placed. Conservative care 05/02/2019-continue to monitor. Will keep covered so the wound will stay clean and the patient does not disturb the wound. 05/03/2019-continue conservative therapy. [place] out in approximately 10 days. 05/04/2019-I explained to the patient's that the tan can be removed at their primary care provider's office. (3) Metabolic encephalopathy Is this a current diagnosis for this admission?: Yes Plan: 05/01/2019-this is most likely due to the repeated episodes of severe hypoglycemia. This could be causing long-term issues especially considering the repeated incidents. In addition he is on significant amount of pain medications and that could be contributing to his altered mental state. I am going to try and slowly wean him from his pain medications. I have added BuSpar to help with anxiety. We will start him back on his Cymbalta as well. 05/02/2019-certainly appears to be resolving. I am not sure what his baseline is. The dysarthria is certainly inhibits the evaluation somewhat. 05/03/2019-he appears to be at baseline. 05/04/2019-with the addition of BuSpar and low-dose Risperdal the patient appears to be at a new baseline. He is not agitated. I would suggest continuing this medication regimen as an outpatient. 05/05/2019-stable will monitor (4) Type 2 diabetes mellitus Qualifiers: Diabetes mellitus correction insulin use: with head charrer use Is this a current diagnosis for this admission?: Yes Plan: 05/01/2019-the patient is on metformin and glimeperide. We are holding his Lantus. I am actually holding his glimepiride as well. I have started sliding scale coverage in the event that we drive his sugar too high. We will need to figure out a regimen that is satisfactory but removed some element of danger for the patient. 05/02/2019-as noted above glucoses are improving. He is no longer on dextrose solution. Staff reports that he has had a good appetite. We will continue to monitor and adjust medications accordingly. 05/03/2019-continue Accu-Cheks. Will monitor on his baseline dose of glimepiride. No insulin required. 05/04/2019-I believe the patient should be discharged on metformin 500 mg twice daily and glimepiride 2 mg each morning. She did ask about elevated glucose readings. I suggested that he take an additional 2 mg of glimepiride in the evening if his sugars above 150. I did encourage him to make an appointment with the area development consultant next week. 05/05/2019-plan as above problem #1 (5) Dyspepsia Is this a current diagnosis for this admission?: Yes Plan: Patient complains that he is not eating much because he gets some burning sensation in his stomach after eating. Poor appetite may be contributing to yann jaime's hypoglycemic episodes. I have started patient on Pepcid every 12 and will continue Maalox as needed. - Plan Summary Summary: 05/04/2019-the patient initially presented with severe hypoglycemia requiring dextrose infusion to maintain normal glucose levels. Eventually he was taken off of the dextrose solution. He is back on metformin 500 mg twice daily. He is only on 2 mg of glimepiride daily. The 4 mg dose did tend towards low Accu- Cheks. I would continue 500 mg of metformin twice daily and 2 mg of glimepiride in the morning. If his glucose in the afternoon is greater than 150 I would take another 2 mg dose of glimepiride. The patient is wheelchair-bound at home. Transfer to [facility] facility would not be of benefit because the patient is not rehab verbal. I would suggest home health with physical therapy. - Time Time Spent with patient: 15-24 minutes
[2019-05-05] MEDS: TAMSULOSIN HCL 0.4 MG CAP.SR.24H PO SCH (17:08)
[2019-05-05] MEDS ORDERED: DEXTROSE 5%-NORMAL SALINE 1,000 ML IV PRN (17:58)
[2019-05-05] MEDS: FAMOTIDINE 20 MG TABLET PO SCH (21:27)
[2019-05-06] MEDS: LEVOTHYROXINE SODIUM 0.075 MG TABLET PO SCH (06:00)
[2019-05-06] MEDS: HEPARIN SOD (PORCINE) 5,000 UNIT/ML 1 ML VIAL SUBCUT SCH ×3 (06:00→21:40)
[2019-05-06] MEDS: INSULIN LISPRO 100 UNIT/ML 3 ML VIAL SUBCUT SCH ×4 (08:01→21:41)
[2019-05-06] MEDS: DULOXETINE HCL 30 MG CAPSULE.DR PO SCH ×2 (09:39→21:51)
[2019-05-06] MEDS: OXYCODONE HCL SR 10 MG TABLET PO SCH ×2 (09:40→21:50)
[2019-05-06] MEDS: FAMOTIDINE 20 MG TABLET PO SCH ×2 (09:40→21:51)
[2019-05-06] MEDS: DOCUSATE SODIUM 100 MG CAPSULE PO SCH ×2 (09:40→17:17)
[2019-05-06] MEDS: FENOFIBRATE NANOCRYSTALLIZED 48 MG TABLET PO SCH (09:40)
[2019-05-06] MEDS: DUTASTERIDE 0.5 MG CAPSULE PO SCH (09:40)
[2019-05-06] MEDS: METFORMIN HCL 500 MG TABLET PO SCH ×2 (09:40→21:50)
[2019-05-06] MEDS: BUSPIRONE HCL 10 MG TABLET PO SCH ×2 (09:40→21:51)
--- NOTE | 2019-05-06 13:22 | PDOC PROGRESS REPORT ---
Subjective Progress Note for:: 05/06/19 Subjective:: No adverse events overnight. No new complaints. Blood sugars have been in the low 100s, with one low blood sugar overnight while he was on dextrose infusion. Reason For Visit: HYPOGLYCEMIA Physical Exam Vital Signs: Temp Pulse Resp BP Pulse Ox 98.0 F 80 18 137/62 H 100 05/06/19 11:33 05/06/19 11:33 05/06/19 11:33 05/06/19 11:33 05/06/19 11:33 Intake & Output 05/05/19 05/06/19 05/07/19 06:59 06:59 06:59 Intake Total 942 2232 Output Total 450 200 Balance 492 2032 Weight 58.3 kg 58.5 kg General appearance: PRESENT: no acute distress, cooperative, disheveled Teeth exam: PRESENT: poor dentation Respiratory exam: PRESENT: clear to auscultation ester, symmetrical, unlabored. ABSENT: accessory muscle use, chest wall tenderness, crackles, prolonged e xpiratory phas, rhonchi, tachypnea, wheezes Cardiovascular exam: PRESENT: RRR, +S1, +S2 Pulses: PRESENT: normal carotid pulses Vascular exam: PRESENT: normal capillary refill GI/Abdominal exam: PRESENT: normal bowel sounds, soft. ABSENT: distended, guarding, rebound, tenderness Extremities exam: ABSENT: clubbing, pedal edema Musculoskeletal exam: PRESENT: normal inspection. ABSENT: deformity Neurological exam: PRESENT: alert, awake, oriented to person, oriented to place, oriented to situation Psychiatric exam: PRESENT: appropriate affect, normal mood Skin exam: PRESENT: dry, warm Results Laboratory Results: 05/03/19 04:33 05/05/19 04:25 04/30/19 04/30/19 17:42 17:42 Creatine Kinase 21 L CK-MB (CK-2) 2.39 Troponin I 0.024 Impressions: Chest X-Ray 04/30/19 18:43 IMPRESSION: Left medial-basilar airspace disease. No significant pleural effusion. Head CT 05/01/19 00:00 IMPRESSION: 1. No acute intracranial abnormality by CT criteria. This exam was performed according to our departmental dose-optimization program, which includes automated exposure control, adjustment of the mA and/or kV according to patient size and/or use of iterative reconstruction technique. Assessment and Plan - Diagnosis (1) Hypoglycemia Is this a current diagnosis for this admission?: Yes Plan: We have stopped him from taking insulin and we have discontinued his Amaryl. We will just continue his metformin. We will see how he tolerates this and if his sugars are acceptable anticipate he will go home tomorrow. (2) Fall Qualifiers: Encounter type: initial encounter Qualified Code(s): W19.XXXA - Unspecified fall, initial encounter Is this a current diagnosis for this admission?: Yes Plan: For low blood sugar, now resolved (3) Laceration of scalp without complication Qualifiers: Encounter type: initial encounter Qualified Code(s): S01.01XA - Laceration without foreign body of scalp, initial encounter Is this a current diagnosis for this admission?: Yes Plan: the tan can be removed at their primary care provider's office in about 10 days - Plan Summary Summary: 05/04/2019-the patient initially presented with severe hypoglycemia requiring dextrose infusion to maintain normal glucose levels. Eventually he was taken off of the dextrose solution. He is back on metformin 500 mg twice daily. He is only on 2 mg of glimepiride daily. The 4 mg dose did tend towards low Accu- Cheks. I would continue 500 mg of metformin twice daily and 2 mg of glimepiride in the morning. If his glucose in the afternoon is greater than 150 I would take another 2 mg dose of glimepiride. The patient is wheelchair-bound at home. Transfer to [facility] facility would not be of benefit because the patient is not rehab verbal. I would suggest home health with physical therapy. - Time Time Spent with patient: 15-24 minutes
[2019-05-06] MEDS: TAMSULOSIN HCL 0.4 MG CAP.SR.24H PO SCH (17:17)
[2019-05-07] MEDS: HEPARIN SOD (PORCINE) 5,000 UNIT/ML 1 ML VIAL SUBCUT SCH (06:09)
[2019-05-07] MEDS: LEVOTHYROXINE SODIUM 0.075 MG TABLET PO SCH (06:11)
[2019-05-07] MEDS: INSULIN LISPRO 100 UNIT/ML 3 ML VIAL SUBCUT SCH (09:22)
[2019-05-07] MEDS: DUTASTERIDE 0.5 MG CAPSULE PO SCH (09:57)
[2019-05-07] MEDS: FENOFIBRATE NANOCRYSTALLIZED 48 MG TABLET PO SCH (09:58)
[2019-05-07] MEDS: BUSPIRONE HCL 10 MG TABLET PO SCH (09:58)
[2019-05-07] MEDS: DULOXETINE HCL 30 MG CAPSULE.DR PO SCH (09:58)
[2019-05-07] MEDS: METFORMIN HCL 500 MG TABLET PO SCH (09:58)
[2019-05-07] MEDS: OXYCODONE HCL SR 10 MG TABLET PO SCH (09:58)
[2019-05-07] MEDS: DOCUSATE SODIUM 100 MG CAPSULE PO SCH (09:58)
[2019-05-07] MEDS: FAMOTIDINE 20 MG TABLET PO SCH (09:59)
[2019-05-07 11:12] VITALS: BP 93/46
--- NOTE | 2019-05-07 14:03 | PDOC DISCHARGE SUMMARY ---
Impression - Admit/DC Date/PCP Admission Date/Primary Care Provider: 04/30/19 23:15 CHERYL DILLARD PA-C Discharge Date: 05/07/19 - Discharge Diagnosis (1) Hypoglycemia Is this a current diagnosis for this admission?: Yes (2) Fall Is this a current diagnosis for this admission?: Yes (3) Laceration of scalp without complication Is this a current diagnosis for this admission?: Yes - Assessment Summary: 05/04/2019-the patient initially presented with severe hypoglycemia requiring dextrose infusion to maintain normal glucose levels. Eventually he was taken off of the dextrose solution. He is back on metformin 500 mg twice daily. He is only on 2 mg of glimepiride daily. The 4 mg dose did tend towards low Accu- Cheks. I would continue 500 mg of metformin twice daily and 2 mg of glimepiride in the morning. If his glucose in the afternoon is greater than 150 I would take another 2 mg dose of glimepiride. The patient is wheelchair-bound at home. Transfer to assisted facility would not be of benefit because the patient is not rehab verbal. I would suggest home health with physical therapy. - Additional Information Resuscitation Status: Full Code Discharge Diet: Diabetic Discharge Activity: Balance Activity w/Rest, Supervised Activity Referrals: CHERYL DILLARD PA-C [Primary Care Provider] - 05/10/19 1:30 pm Prescriptions: Metformin HCl [Glucophage 500 mg Tablet] 500 mg PO BIDACBS #60 Home Medications: Duloxetine HCl [Cymbalta] 60 mg PO BID 05/01/19 Dutasteride [Avodart Lf 0.5 mg Capsule] 0.5 mg PO DAILY 05/01/19 Esomeprazole Mag Trihydrate [Nexium] 40 mg PO DAILY 05/01/19 Fenofibrate Nanocrystallized [Fenofibrate] 48 mg PO DAILY 05/01/19 Levothyroxine Sodium [Synthroid 0.075 mg Tablet] 0.075 mg PO Q6AM 05/01/19 Naloxone HCl [Narcan] 4 mg NS .ASDIR 05/01/19 Tamsulosin HCl [Flomax 0.4 mg Cap.sr] 0.4 mg PO BID 05/01/19 Metformin HCl [Glucophage 500 mg Tablet] 500 mg PO BIDACBS #60 05/07/19 Oxycodone HCl [Oxy-Ir 5 mg Tablet] 5 mg PO QIDP PRN #0 05/07/19 History of Present Illiness History of Present Illness: COLE THIBODEAUX is a 83 year old male with past medical history of bullous pemphigus, chronic pain, coronary artery disease, asthma and insulin-dependent diabetes, recurrent hypoglycemia with encephalopathy. History is obtained by the record and patient's girlfriend at bedside who states he has had greater than 12 hours of severe confusion and associated hypoglycemia in the 30s prompting a call to EMS he receives D5 at 125 an hour and dextrose 50 bolus x3 for recurrent hypoglycemia. He is referred to the hospitalist for admission. Patient significant other at bedside but does report uncontrolled hyperglycemia prompting a bolus of 38 units of Lantus insulin 24 hours ago. He was admitted 1 month ago for similar complaints but left AGAINST MEDICAL ADVICE. Hospital Course Hospital Course: He was given some IV fluids and his medications were adjusted. He was taking a moderately large dose of Lantus along with metformin and glimepiride. When we fed him a diabetic diet here, his blood sugars were still running low and so obviously the Lantus was held. His blood sugars were still trending low on the glimepiride and so that was cut in half. When his sugars were still running a little low the glimepiride was discontinued completely and his blood sugars have been very well controlled on a low dose of metformin twice a day. His hemoglobins A1c is 7.3%. He was instructed to discontinue using Lantus and glimepiride, and that if he follows a diabetic diet his blood sugar will be well controlled with metformin alone. His labs and examination were reassuring and hali fisher was discharged in stable condition. He had a leukocytosis initially but this was felt to be just due to an acute stress reaction. He had no evidence of infection. Physical Exam Vital Signs: Temp Pulse Resp BP Pulse Ox 97.6 F 81 18 93/46 L 94 05/07/19 11:10 05/07/19 11:10 05/07/19 11:10 05/07/19 11:10 05/07/19 11:10 Intake & Output 05/06/19 05/07/19 05/08/19 06:59 06:59 06:59 Intake Total 2232 460 Output Total 200 50 Balance 2031 410 Weight 58.5 kg 58.3 kg General appearance: PRESENT: no acute distress, cooperative, disheveled Teeth exam: PRESENT: poor dentation Respiratory exam: PRESENT: clear to auscultation ester, symmetrical, unlabored. ABSENT: accessory muscle use, chest wall tenderness, crackles, prolonged expiratory phas, rhonchi, tachypnea, wheezes Cardiovascular exam: PRESENT: RRR, +S1, +S2 Pulses: PRESENT: normal carotid pulses Vascular exam: PRESENT: normal capillary refill GI/Abdominal exam: PRESENT: normal bowel sounds, soft. ABSENT: distended, guarding, rebound, tenderness Extremities exam: ABSENT: clubbing, pedal edema Musculoskeletal exam: PRESENT: normal inspection. ABSENT: deformity Neurological exam: PRESENT: alert, awake, oriented to person, oriented to place, oriented to situation Psychiatric exam: PRESENT: appropriate affect, normal mood Skin exam: PRESENT: dry, warm Results Laboratory Results: WBC 8.4 10^3/uL (4.0-10.5) 05/03/19 04:33 RBC 4.41 10^6/uL (4.35-5.55) 05/03/19 04:33 Hgb 12.4 g/dL (13.5-17.0) L 05/03/19 04:33 Hct 37.5 % (37.9-51.0) L 05/03/19 04:33 MCV 85 fl (80-97) 05/03/19 04:33 MCH 28.2 pg (27.0-33.4) 05/03/19 04:33 MCHC 33.1 g/dL (32.0-36.0) 05/03/19 04:33 RDW 16.4 % (11.5-14.0) H 05/03/19 04:33 Plt Count 237 10^3/uL (150-450) 05/03/19 04:33 Lymph % (Auto) 13.6 % (13-45) 05/03/19 04:33 [place] % (Auto) 7.1 % (3-13) 05/03/19 04:33 Eos % (Auto) 2.9 % (0-6) 05/03/19 04:33 Baso % (Auto) 0.2 % (0-2) 05/03/19 04:33 Absolute Neuts (auto) 6.4 10^3/uL (1.7-8.2) 05/03/19 04:33 Absolute Lymphs (auto) 1.1 10^3/uL (0.5-4.7) 05/03/19 04:33 Absolute Monos (auto) 0.6 10^3/uL (0.1-1.4) 05/03/19 04:33 Absolute Eos (auto) 0.2 10^3/uL (0.0-0.6) 05/03/19 04:33 Absolute Basos (auto) 0.0 10^3/uL (0.0-0.2) 05/03/19 04:33 Total Counted 100 04/30/19 17:42 Seg Neutrophils % 76.2 % (42-78) 05/03/19 04:33 Seg Neuts % (Manual) 90 % (42-78) H 04/30/19 17:42 Lymphocytes % (Manual) 3 % (13-45) L 04/30/19 17:42 Monocytes % (Manual) 7 % (3-13) 04/30/19 17:42 Eosinophils % (Manual) 0 % (0-6) 04/30/19 17:42 Basophils % (Manual) 0 % (0-2) 04/30/19 17:42 Abs Neuts (Manual) 18.5 10^3/uL (1.7-8.2) H 04/30/19 17:42 Abs Lymphs (Manual) 0.6 10^3/uL (0.5-4.7) 04/30/19 17:42 Abs Monocytes (Manual) 1.4 10^3/uL (0.1-1.4) 04/30/19 17:42 Absolute Eos (Manual) 0.0 10^3/uL (0.0-0.6) 04/30/19 17:42 Abs Basophils (Manual) 0.0 10^3/uL (0.0-0.2) 04/30/19 17:42 Platelet Comment ADEQUATE 04/30/19 17:42 Anisocytosis 1+ 04/30/19 17:42 Carbonic Acid 1.12 mmol/L (1.05-1.35) 04/30/19 22:55 HCO3/H2CO3 Ratio 25:1 04/30/19 22:55 ABG pH 7.51 (7.35-7.45) H 04/30/19 22:55 ABG pCO2 37.2 mmHg (35-45) 04/30/19 22:55 ABG pO2 86.8 mmHg (80-100) 04/30/19 22:55 ABG HCO3 28.8 mmol/L (20-24) H 04/30/19 22:55 ABG Total CO2 30.0 mmol/L (23-27) H 04/30/19 22:55 ABG O2 Saturation 97.3 % (94-98) 04/30/19 22:55 ABG Base Excess 5.6 mmol/L 04/30/19 22:55 FiO2 ROOM AIR 04/30/19 22:55 Sodium 134.8 mmol/L (137-145) L 05/05/19 04:25 Potassium 4.1 mmol/L (3.6-5.0) 05/05/19 04:25 Chloride 102 mmol/L (98-107) 05/05/19 04:25 Carbon Dioxide 26 mmol/L (22-30) 05/05/19 04:25 Anion Gap 7 (5-19) 05/05/19 04:25 BUN 16 mg/dL (7-20) 05/05/19 04:25 Creatinine 0.84 mg/dL (0.52-1.25) 05/05/19 04:25 Est GFR ( Amer) > 60 (>60) 05/05/19 04:25 Est GFR (MDRD) Non-Af > 60 (>60) 05/05/19 04:25 Glucose 50 mg/dL (75-110) L 05/05/19 04:25 POC Glucose 96 mg/dL (70-110) 05/07/19 08:12 Hemoglobin A1c % 7.3 % (4.7-6.0) H 05/03/19 04:33 Calcium 8.4 mg/dL (8.4-10.2) 05/05/19 04:25 Magnesium 2.2 mg/dL (1.6-2.3) 05/03/19 04:33 Total Bilirubin 0.5 mg/dL (0.2-1.3) 04/30/19 17:42 Direct Bilirubin 0.2 mg/dL (0.0-0.4) 04/30/19 17:42 Neonat Total Bilirubin Not Reportable 04/30/19 17:42 Neonat Direct Bilirubin Not Reportable 04/30/19 17:42 Neonat Indirect Bili Not Reportable 04/30/19 17:42 AST 14 U/L (17-59) L 04/30/19 17:42 ALT 10 U/L (<50) 04/30/19 17:42 Alkaline Phosphatase 72 U/L (38-126) 04/30/19 17:42 Creatine Kinase 21 U/L (55-170) L 04/30/19 17:42 CK-MB (CK-2) 2.39 ng/mL (<4.55) 04/30/19 17:42 Troponin I 0.024 ng/mL 04/30/19 17:42 Total Protein 6.9 g/dL (6.3-8.2) 04/30/19 17:42 Albumin 3.8 g/dL (3.5-5.0) 04/30/19 17:42 TSH 0.66 uIU/mL (0.47-4.68) 04/30/19 17:42 Urine Color YELLOW 04/30/19 19:36 Urine Appearance CLEAR 04/30/19 19:36 Urine pH 7.0 (5.0-9.0) 04/30/19 19:36 Ur Specific Criders 1.011 04/30/19 19:36 Urine Protein NEGATIVE mg/dL (NEGATIVE) 04/30/19 19:36 Urine Glucose (UA) NEGATIVE mg/dL (NEGATIVE) 04/30/19 19:36 Urine Ketones NEGATIVE mg/dL (NEGATIVE) 04/30/19 19:36 Urine Blood NEGATIVE (NEGATIVE) 04/30/19 19:36 Urine Nitrite (Reflex) NEGATIVE (NEGATIVE) 04/30/19 19:36 Urine Bilirubin NEGATIVE (NEGATIVE) 04/30/19 19:36 Urine Urobilinogen 2.0 mg/dL (<2.0) H 04/30/19 19:36 Leukocyte Esterase Rfl NEGATIVE (NEGATIVE) 04/30/19 19:36 Urine RBC (Auto) 1 /HPF 04/30/19 19:36 U Hyaline Cast (Auto) 1 /LPF 04/30/19 19:36 Urine WBC (Reflex) < 1 /HPF 04/30/19 19:36 Urine Mucus (Auto) RARE /LPF 04/30/19 19:36 Urine Ascorbic Acid NEGATIVE (NEGATIVE) 04/30/19 19:36 Urine Opiates Screen UNCONFIRMED POSITIVE 04/30/19 19:36 Urine Methadone Screen NEGATIVE 04/30/19 19:36 Ur Barbiturates Screen NEGATIVE 04/30/19 19:36 Ur Phencyclidine Scrn NEGATIVE 04/30/19 19:36 Ur Amphetamines Screen NEGATIVE 04/30/19 19:36 U Benzodiazepines Scrn NEGATIVE 04/30/19 19:36 Urine Cocaine Screen NEGATIVE 04/30/19 19:36 U Marijuana (THC) Screen NEGATIVE 04/30/19 19:36 04/30/19 17:42 CK-MB (CK-2) 2.39 Troponin I 0.024 Impressions: Chest X-Ray 04/30/19 18:43 IMPRESSION: Left medial-basilar airspace disease. No significant pleural effusion. Head CT 04/30/19 18:43 IMPRESSION: 1. Motion-degraded exam 2. No hematoma or mass effect Head CT 05/01/19 00:00 IMPRESSION: 1. No acute intracranial abnormality by CT criteria. This exam was performed according to our departmental dose-optimization program, which includes automated exposure control, adjustment of the mA and/or kV according to patient size and/or use of iterative reconstruction technique. Plan Time Spent: Greater than 30 Minutes Stroke Is this a Stroke Patient?: No Acute Heart Failure - Is this a Heart Failure Patient?: No
== END 2019-05-07 11:50 | disposition home health service (06) | DRG 637 ==
LOC: ER 17:18 → EH 23:15 → 3N 05-01 02:49
PROVIDERS: ADMIT Internal Medicine; ATTEND Internal Medicine
PROC: 0HQ0XZZ Repair Scalp Skin, External Approach (ICD-10-PCS; principal; 2019-05-01)
DX: E11.649 Type 2 diabetes mellitus with hypoglycemia without coma (principal); G93.41 Metabolic encephalopathy; L12.0 Bullous pemphigoid; E87.1 Hypo-osmolality and hyponatremia; I25.10 Atherosclerotic heart disease of native coronary artery without angina pectoris; I10 Essential (primary) hypertension; G89.4 Chronic pain syndrome; J45.909 Unspecified asthma, uncomplicated; I69.322 Dysarthria following cerebral infarction; E03.9 Hypothyroidism, unspecified; N40.0 Benign prostatic hyperplasia without lower urinary tract symptoms; M19.90 Unspecified osteoarthritis, unspecified site; F32.9 Major depressive disorder, single episode, unspecified; S01.01XA Laceration without foreign body of scalp, initial encounter; S40.022A Contusion of left upper arm, initial encounter; S40.021A Contusion of right upper arm, initial encounter; R45.1 Restlessness and agitation; W19.XXXA Unspecified fall, initial encounter; Y92.230 Patient room in hospital as the place of occurrence of the external cause; Z88.0 Allergy status to penicillin; R10.13 Epigastric pain; Z78.1 Physical restraint status; Z79.84 Long term (current) use of oral hypoglycemic drugs
CPT/HCPCS: 36415; 36600; 70450; 71045; 80048; 80053; 80307; 81001; 82550; 82553; 82803; 82962; 83036; 83735; 84443; 84484; 85025; 93005; 93010; 94640; 96361; 96374; 96375; 96376; 99285; J1630; J1644; J1815; J2060; J2250; J2270; J3490; J7030; J7042; J7620; L0120